=== PATIENT | female | born 1955 | race Caucasian/White ===

== ENCOUNTER → 2020-04-23 15:36 | Outpatient (BNVA) | payer OTHER, SELFPAY | PROVIDERS: PCP Internal Medicine; Visit Provider Student in an Organized Health Care Education/Training Program | DX: Z76.89 Persons encountering health services in other specified circumstances (principal) ==

== ENCOUNTER 2020-04-26 15:06 | Outpatient (REF) | payer OTHER, SELFPAY ==
[2020-04-26 15:30] LABS: Basophils Percent Auto 0.4 % (0-2); Eosinophils Absolute Auto 0.1 X10*3/uL (0.0-0.4); Eosinophils Percent Auto 1.6 % (0-4); Hematocrit 42.1 % (37-47); Hemoglobin 13.9 g/dl (12.0-16.0); Lymphocytes Absolute Auto 2.4 X10*3/uL (1.2-4.9); Lymphocytes Percent Auto 35.9 % (20-40); MANUAL DIFF FLAG NO; Mean Corpuscular Hemoglobin 29.7 pg (27.0-33.0); Mean Platelet Volume 9.4 fL (9.4-12.3); Monocytes Absolute Auto 0.5 X10*3/uL (0.1-1.2); Monocytes Percent Auto 7.9 % (2-11); Neutrophils Absolute Auto 3.6 X10*3/uL (2.0-8.3); Neutrophils Percent Auto 54.2 % (45-73); Platelet Count 254 X10*3/uL (160-400); Red Blood Count 4.68 X10*6/uL (4.20-5.50); Red Cell Distribution Width 12.8 % (11.0-16.0); White Blood Count 6.7 X10*3/uL (4.8-10.8)
[2020-04-26 15:56] LABS: Alanine Aminotransferase 23 U/L (0-31); Albumin Level 4.6 g/dL (3.5-5.0); Alkaline Phosphatase 67 U/L (39-117); Anion Gap 11 (12-20); Aspartate Amino Transferase 26 U/L (5-31); Bilirubin Total 0.6 mg/dL (0.0-1.0); Blood Urea Nitrogen 11 mg/dL (9-16); Calcium 9.3 mg/dL (8.4-10.2); Carbon Dioxide 29 mmol/L (22-29); Chloride 107 mmol/L (96-108); Estimated Glomerular Filt Rate > 60; Glucose Random 99 mg/dL (60-115); Potassium 3.8 mmol/l (3.3-5.1); Sodium 143 mmol/L (135-145); Total Protein 7.4 g/dL (6.5-8.0)
[2020-04-26 16:31] LABS: Erythrocyte Sedimentation Rate 7 MM/HR (0-20)
== END 2020-04-26 15:07 | disposition home or self-care (01) ==
LOC: HO.LAB 15:06
PROVIDERS: PCP Internal Medicine; Visit Provider Student in an Organized Health Care Education/Training Program
DX: M05.9 Rheumatoid arthritis with rheumatoid factor, unspecified (principal)
CPT/HCPCS: 36415; 80053; 85025; 85652; 86140

== ENCOUNTER → 2020-06-07 16:22 | Outpatient (BNVA) | payer OTHER, SELFPAY | PROVIDERS: PCP Internal Medicine; Visit Provider Student in an Organized Health Care Education/Training Program | DX: M05.9 Rheumatoid arthritis with rheumatoid factor, unspecified (principal); R76.8 Other specified abnormal immunological findings in serum | CPT/HCPCS: 99212 ==

== ENCOUNTER → 2020-09-10 14:14 | Outpatient (BNVA) | payer MEDICARE, SELFPAY | PROVIDERS: PCP Internal Medicine; Visit Provider Student in an Organized Health Care Education/Training Program | DX: M05.9 Rheumatoid arthritis with rheumatoid factor, unspecified (principal); R76.8 Other specified abnormal immunological findings in serum | CPT/HCPCS: 99212 ==

== ENCOUNTER 2020-09-24 10:52 | Outpatient (REF) | payer MEDICARE, SELFPAY ==
--- NOTE | ~2020-09-24 | CT_ITS ---
EXAMINATION: CT CHEST WITHOUT CONTRAST CLINICAL INFORMATION: Lung nodule COMPARISON: Previous chest CT scans January 2019 and June 2018 TECHNIQUE: Multidetector volumetric CT imaging of the chest was done. Axial MIP volume rendering provided. Sagittal and coronal reformatted images were obtained. This CT examination was performed using dose optimization techniques as appropriate, variously including the following: *Automated exposure control *Adjustment of mA and/or kV according to patient size (this includes techniques or standardized protocols for targeted exams where dose is matched to indication/reason for exam; i.e. extremities or head) *Use of iterative reconstruction technique DLP: 103 mGy-cm FINDINGS: CATTLE STICKER: LUNGS: There is an irregularly-shaped abnormal parenchymal density seen in the right upper lobe. This is mixed reticular and groundglass attenuation and has mild bronchiolectasis. This does not appear appreciably changed from previous exam June and January 2019. This measures 3.1 x 0.8 cm in sagittal and AP dimension sagittal reconstructed image 59 and 2.4 cm in transverse dimension coronal reconstructed image 36 and appears unchanged in size. There is mild biapical pleural and parenchymal scarring. The lungs are otherwise clear. MEDIASTINUM: The mediastinum is normal. PLEURA: There is no pleural effusion. No pleural mass or thickening. AXILLA: No lymphadenopathy. UPPER ABDOMEN: There is a 0.8 cm low-attenuation high in the right lobe of the liver axial image 53 series 3. This is not definitely appreciated on prior exams. OSSEOUS STRUCTURES: There are degenerative changes of the spine. There is mild curvature of the lower thoracic spine to the right. CT/CT chest wo con IMPRESSION: Stable abnormal parenchymal density in the right upper lobe from previous exams June and January 2019. Continued chest CT follow-up recommended. 8mm low-attenuation lesion in the right lobe of the liver not definitely appreciated on prior exams. Follow-up liver ultrasound recommended.
== END 2020-09-24 10:53 | disposition home or self-care (01) ==
LOC: HO.CT 10:52
PROVIDERS: PCP Internal Medicine; Visit Provider Internal Medicine
DX: R91.1 Solitary pulmonary nodule (principal)
CPT/HCPCS: 71250

== ENCOUNTER 2020-11-01 07:55 | Outpatient (REF) | payer MEDICARE, SELFPAY ==
--- NOTE | ~2020-11-01 | US_ITS ---
EXAMINATION: US ABDOMEN COMPLETE CLINICAL INFORMATION: Right upper quadrant pain. COMPARISON: CT abdomen and pelvis 11/15/2015. TECHNIQUE: Real-time imaging of the abdominal viscera. FINDINGS: PANCREAS: Normal. ABDOMINAL AORTA: The proximal, mid, and distal segments are normal in caliber. INFERIOR VENA CAVA: Visualized portions are normal. LIVER: The liver is normal in size. The liver contour is normal. Parenchymal echogenicity is normal. There is a 7 mm cyst in the right lobe the liver. No other focal liver lesion is seen. There is no intrahepatic biliary duct dilatation seen. GALLBLADDER: Normal. The gallbladder is physiologically distended without evidence of stones, sludge, polyps, wall thickening or pericholecystic fluid. COMMON BILE DUCT: Normal in caliber measuring 0.2 cm in diameter. RIGHT KIDNEY: Normal. No hydronephrosis. No renal calculi or focal parenchymal lesions. The kidney measures 9.2 cm in maximum dimension. LEFT KIDNEY: Normal. No hydronephrosis. No renal calculi or focal parenchymal lesions. The kidney measures 9.7 cm in maximum dimension. SPLEEN: Normal. The spleen measures 10.3 cm in maximum dimension. FREE FLUID: None. US/US abdomen complete IMPRESSION: Small liver cyst otherwise unremarkable exam.
== END 2020-11-01 07:56 | disposition home or self-care (01) ==
LOC: HO.US 07:55
PROVIDERS: Visit Provider Nurse Practitioner Adult Health
DX: R10.11 Right upper quadrant pain (principal)
CPT/HCPCS: 76700

== ENCOUNTER 2021-04-17 10:43 | Outpatient (REF) | payer MEDICARE, SELFPAY ==
[2021-04-17 11:56] LABS: COVID-19 Test Negative (Negative)
== END 2021-04-17 10:44 | disposition home or self-care (01) ==
LOC: HO.LAB 10:43
PROVIDERS: Visit Provider Internal Medicine
DX: Z20.822 Contact with and (suspected) exposure to COVID-19 (principal)
CPT/HCPCS: 36415; 87635; C9803

== ENCOUNTER → 2021-08-04 07:58 | Outpatient (BNVA) | payer MEDICARE, SELFPAY | PROVIDERS: PCP Internal Medicine; Visit Provider Internal Medicine Rheumatology | DX: M79.641 Pain in right hand (principal); M79.642 Pain in left hand; M19.041 Primary osteoarthritis, right hand; M19.042 Primary osteoarthritis, left hand; R76.8 Other specified abnormal immunological findings in serum | CPT/HCPCS: 99212 ==

== ENCOUNTER 2021-10-29 11:47 | Outpatient (REF) | payer MEDICARE, SELFPAY ==
--- NOTE | ~2021-10-29 | XR_ITS ---
EXAMINATION: XR KNEE, RIGHT XR KNEE, LEFT CLINICAL INFORMATION: Knee pain COMPARISON: Standing AP knees and right knee radiographs 11/03/2012. TECHNIQUE: Each knee is imaged in 4 views. There are total of 8 views. FINDINGS: Right: Normal bony mineralization. No fracture, dislocation, destructive process, or suprapatellar effusion. Hoffa's fat pad appears normal. The medial lateral knee joint appear normal in height with no narrowing or erosive change or chondrocalcinosis. There may be mild narrowing lateral patellofemoral joint. No lateralization or tilting patella. Left: Normal bony mineralization. No fracture, dislocation, destructive process, or suprapatellar effusion. Hoffa's fat pad appears normal. The medial lateral knee joint appear normal in height with no narrowing or erosive change or chondrocalcinosis. There is mild narrowing lateral patellofemoral joint. Mild lateral patellar tilt. XR/XR knee RT 3V IMPRESSION: Right: -Borderline narrowing lateral patellofemoral joint. -No medial lateral compartment narrowing or erosive change. No effusion. Left: -Mild narrowing lateral patellofemoral joint. Mild lateral patellar tilt. -No medial lateral compartment narrowing or erosive change. No effusion.
--- NOTE | ~2021-10-29 | XR_ITS ---
EXAMINATION: XR KNEE, RIGHT XR KNEE, LEFT CLINICAL INFORMATION: Knee pain COMPARISON: Standing AP knees and right knee radiographs 11/03/2012. TECHNIQUE: Each knee is imaged in 4 views. There are total of 8 views. FINDINGS: Right: Normal bony mineralization. No fracture, dislocation, destructive process, or suprapatellar effusion. Hoffa's fat pad appears normal. The medial lateral knee joint appear normal in height with no narrowing or erosive change or chondrocalcinosis. There may be mild narrowing lateral patellofemoral joint. No lateralization or tilting patella. Left: Normal bony mineralization. No fracture, dislocation, destructive process, or suprapatellar effusion. Hoffa's fat pad appears normal. The medial lateral knee joint appear normal in height with no narrowing or erosive change or chondrocalcinosis. There is mild narrowing lateral patellofemoral joint. Mild lateral patellar tilt. XR/XR knee LT 3V IMPRESSION: Right: -Borderline narrowing lateral patellofemoral joint. -No medial lateral compartment narrowing or erosive change. No effusion. Left: -Mild narrowing lateral patellofemoral joint. Mild lateral patellar tilt. -No medial lateral compartment narrowing or erosive change. No effusion.
[2021-10-29 13:44] LABS: C Reactive Protein 0.12 mg/dL (< or = 0.50)
[2021-10-29 13:48] LABS: Erythrocyte Sedimentation Rate 6 MM/HR (0-20)
== END 2021-10-29 11:48 | disposition home or self-care (01) ==
LOC: HO.XRAY 11:47
PROVIDERS: PCP Internal Medicine; Visit Provider Internal Medicine Rheumatology
DX: M25.561 Pain in right knee (principal); M25.562 Pain in left knee; R29.898 Other symptoms and signs involving the musculoskeletal system
CPT/HCPCS: 36415; 73562; 82550; 85652; 86140; 99212

== ENCOUNTER 2021-11-06 20:00 | Emergency (ER) | payer MEDICARE, SELFPAY ==
--- NOTE | ~2021-11-06 | XR_ITS ---
EXAMINATION: XR CHEST CLINICAL INFORMATION: Fever. COMPARISON: CT chest 09/24/2020 TECHNIQUE: Frontal portable view of the chest was obtained. 8:46 PM FINDINGS: Small patchy airspace opacity at the right upper lobe. This correlates to the previously seen density on CT chest 09/24/2020. No acute airspace disease. No pulmonary vascular congestion. No pleural effusion or pneumothorax. Heart size is normal. Cardiac and mediastinal contours are normal. XR/XR chest 1V IMPRESSION: No acute abnormality of chest. Stable patchy parenchymal airspace opacity right upper lobe which is chronic. See the prior report CT chest
[2021-11-06 20:13] VITALS: BP 140/67; BP 150/80; PULSE 116; PULSE 145; RESP 16; TEMP 38.2; O2SAT 96; O2SAT 98; BMI 23.0
--- NOTE | 2021-11-06 20:45 | ED_ITS ---
HPI - Fever General Chief Complaint: Fever Stated Complaint: flu like symptoms Time Seen by Provider: 11/06/21 20:18 Source: patient Mode of arrival: EMS Limitations: no limitations History of Present Illness HPI Narrative: This is 66 years old female presented to emergency department c/o of flu-like symptoms, fever, chills, diarrhea. Symptoms started today she was well yesterday. She has no comorbidities he MD elicited complaint: fever and malaise Onset (ago): hour(s) (10) Exacerbating factors: nothing Relieving factors: nothing Associated symptoms: denies other symptoms Related Data Home Medications Medication Instructions Recorded Confirmed rzwagvdivo-korqjzblfzpqt-hzvzwksp 1 cap PO Q8H PRN 04/23/20 10/29/21 50 mg-300 mg-40 mg capsule (Fioricet) cholecalciferol (vitamin D3) 25 25 mcg PO DAILY 06/07/20 10/29/21 mcg (1,000 unit) capsule lorazepam 0.5 mg tablet 0.5 mg PO BEDTIME PRN 06/07/20 10/29/21 acetaminophen 650 mg 650 mg PO Q12H PRN 08/04/21 10/29/21 tablet,extended release (Tylenol Arthritis Pain) Allergies Allergy/AdvReac Type Severity Reaction Status Date / Time amoxicillin Allergy Intermediate rash Verified 10/29/21 11:04 latex Allergy Intermediate rash Uncoded 10/29/21 11:04 Review of Systems Review of Systems: Yes all other systems are reviewed and are negative Cardiovascular: Cardiovascular: Reports no additional cardiovascular complaints Respiratory: Respiratory: Reports no additional respiratory complaints Gastrointestinal: Gastrointestinal: Reports no additional gastrointestinal complaints Neurologic: Reports system reviewed and no additional complaints, except as documented PMFSH Past Medical History Medical History SANDIE positive Compression fx, thoracic spine Osteoarthritis of fingers of both hands Osteopenia Seropositive rheumatoid arthritis Surgical History Hx of tonsillectomy Family History Family History Mother HTN (hypertension) Hyperlipidemia Diabetes Arthritis Social History Social History Alcohol intake: never Patient Tobacco Use Status: Never used Tobacco Advance Directives: No Advance Directives Information Provided: No Physical Exam Vital Signs: Vital Signs: Last Vital Signs Temp 99.5 F 11/06/21 21:39 Pulse 90 11/06/21 22:04 Resp 16 11/06/21 22:04 BP 145/77 H 11/06/21 22:04 Pulse Ox 97 11/06/21 22:04 O2 Del Method 11/06/21 22:04 BMI result Body Mass Index 23.0 Const: General: cooperative, comfortable, no acute distress, well developed, alert and awake Nutritional Appearance: average body habitus O rientation/consciousness: patient oriented x3 Limitations: no limitations HEENT: Head: Yes normal to inspection General nose exam: Normal external nose present Face and sinus: Yes normal facial exam Mouth: Normal oral and palatal mucosa present Throat: Yes posterior oropharynx normal Neck: Neck: Yes normal visual inspection and Yes full ROM Chest: Chest palpation & inspection: normal inspection of the chest Resp: Effort & Inspection: normal respiratory effort and able to speak in complete sentences Auscultation: clear to auscultation bilaterally Cardio: Jugular venous distension: no JVD Rate: regular rate Rhythm: regular rhythm GI: Inspection: Yes normal to inspection Palpation (GI): Soft to palpation, not firm, nontender and no guarding Auscultation: normal bowel sounds : General: Yes no CVA tenderness Back/Spine/Pelvis: Back: no CVA tenderness Skin: General skin exam: no rashes or lesions noted, elasticity normal and turgor normal Lesions: no lesions Wounds: no wounds Neuro: General: patient oriented x3 Course Reevaluation(s) Reevaluation #1: Gopal is feeling much better,afebrile at this time non toxic Reevaluation #2: Reexamined again at 23:15 and she is doing much better labs are good, vital signs are stable. MDM - Fever Lab Data Result diagrams: 11/06/21 21:18 11/06/21 21:18 Labs: Lab Results 11/06/21 11/06/21 11/06/21 Range/Units 21:16 21:16 21:18 WBC 4.7 L (4.8-10.8) X10*3/uL RBC 4.38 (4.20-5.50) X10*6/uL Hgb 12.7 (12.0-16.0) g/dl Hct 38.5 (37.0-47.0) % MCV 87.9 (80.0-98.0) fL MCH 29.0 (27.0-33.0) pg MCHC 33.0 (31.0-35.0) g/dl RDW 12.9 (11.0-16.0) % Plt Count 208 (160-400) X10*3/uL MPV 8.8 L (9.4-12.3) fL Immature Gran % (Auto) 0.4 (0.0-0.4) % Neut % (Auto) 73.5 H (45-73) % Lymph % (Auto) 13.8 L (20-40) % [place] % (Auto) 11.0 (2-11) % Eos % (Auto) 1.1 (0-4) % Baso % (Auto) 0.2 (0-2) % Lymph # (Auto) 0.6 L (1.2-4.9) X10*3/uL [place] # (Auto) 0.5 (0.1-1.2) X10*3/uL Eos # (Auto) 0.1 (0.0-0.4) X10*3/uL Baso # (Auto) 0.0 (0.0-0.2) X10*3/uL Abs Immat Gran (auto) 0.02 (0.00-0.03) X10*3/uL Absolute Neuts (auto) 3.4 (2.0-8.3) x10*3/uL Absolute Nucleated RBC 0.000 (0.0-0.012) X10*3/uL Nucleated RBC % (auto) 0.0 (0.0-0.2) /100WBC Sodium (135-145) mmol/L Potassium (3.3-5.1) mmol/L Chloride (96-108) mmol/L Carbon Dioxide (22-29) mmol/L Anion Gap (12-20) BUN (9-16) mg/dL Creatinine (0.5-1.4) mg/dL Estim Creat Clear Calc Estimated GFR Random Glucose (60-115) mg/dL Calcium (8.4-10.2) mg/dL Total Bilirubin (0.0-1.0) mg/dL AST (5-31) U/L ALT (0-31) U/L Alkaline Phosphatase (39-117) U/L Total Protein (6.5-8.0) g/dL Albumin (3.5-5.0) g/dL Urine Color STRAW Urine Appearance CLEAR Urine pH 6.0 (5.0-8.0) Ur Specific [place] <= 1.005 (1.005-1.025) Urine Protein NEG (NEG-TRACE) MG/DL Urine Glucose (UA) NEG (NEG) MG/DL Urine Ketones NEG (NEG) MG/DL Urine Blood 1+ H (NEG) Urine Nitrite NEG (NEG) Ur Leukocyte Esterase NEG (NEG) Urine RBC 1-4 (0) /HPF Urine WBC 0-2 (0-4) /HPF Ur Squamous Epith Cells TRACE /LPF Urine Bacteria NONE /LPF COVID-19 (NAHID) Negative (Negative) COVID-19 Clin Com See Note 11/06/21 Range/Units 21:18 WBC (4.8-10.8) X10*3/uL RBC (4.20-5.50) X10*6/uL Hgb (12.0-16.0) g/dl Hct (37.0-47.0) % MCV (80.0-98.0) fL MCH (27.0-33.0) pg MCHC (31.0-35.0) g/dl RDW (11.0-16.0) % Plt Count (160-400) X10*3/uL MPV (9.4-12.3) fL Immature Gran % (Auto) (0.0-0.4) % Neut % (Auto) (45-73) % Lymph % (Auto) (20-40) % [place] % (Auto) (2-11) % Eos % (Auto) (0-4) % Baso % (Auto) (0-2) % Lymph # (Auto) (1.2-4.9) X10*3/uL [place] # (Auto) (0.1-1.2) X10*3/uL Eos # (Auto) (0.0-0.4) X10*3/uL Baso # (Auto) (0.0-0.2) X10*3/uL Abs Immat Gran (auto) (0.00-0.03) X10*3/uL Absolute Neuts (auto) (2.0-8.3) x10*3/uL Absolute Nucleated RBC (0.0-0.012) X10*3/uL Nucleated RBC % (auto) (0.0-0.2) /100WBC Sodium 140 (135-145) mmol/L Potassium 3.6 (3.3-5.1) mmol/L Chloride 108 (96-108) mmol/L Carbon Dioxide 25 (22-29) mmol/L Anion Gap 11 L (12-20) BUN 12 (9-16) mg/dL Creatinine 0.77 (0.5-1.4) mg/dL Estim Creat Clear Calc 59.4 Estimated GFR > 60 Random Glucose 81 (60-115) mg/dL Calcium 8.4 D (8.4-10.2) mg/dL Total Bilirubin 0.5 (0.0-1.0) mg/dL AST 22 (5-31) U/L ALT 21 (0-31) U/L Alkaline Phosphatase 63 (39-117) U/L Total Protein 6.8 (6.5-8.0) g/dL Albumin 4.2 (3.5-5.0) g/dL Urine Color Urine Appearance Urine pH (5.0-8.0) Ur Specific [place] (1.005-1.025) Urine Protein (NEG-TRACE) MG/DL Urine Glucose (UA) (NEG) MG/DL Urine Ketones (NEG) MG/DL Urine Blood (NEG) Urine Nitrite (NEG) Ur Leukocyte Esterase (NEG) Urine RBC (0) /HPF Urine WBC (0-4) /HPF Ur Squamous Epith Cells /LPF Urine Bacteria /LPF COVID-19 (NAHID) (Negative) COVID-19 Clin Com Imaging Data Chest x-ray: Radiologist's impression: XR CHEST CLINICAL INFORMATION: Fever. COMPARISON: CT chest 09/24/2020 TECHNIQUE: Frontal portable view of the chest was obtained. 8:46 PM FINDINGS: Small patchy airspace opacity at the right upper lobe. This correlates to the previously seen density on CT chest 09/24/2020. No acute airspace disease. No pulmonary vascular congestion. No pleural effusion or pneumothorax. Heart size is normal. Cardiac and mediastinal contours are normal. XR/XR chest 1V IMPRESSION: No acute abnormality of chest. Stable patchy parenchymal airspace opacity right upper lobe which is chronic. See the prior report CT chest ? Dictated By: Ti Nguyen MD Signed By: <Electronically signed by Ti Nguyen MD in [place]> 11/06/212116 DD/ 52 Discharge Plan Discharge Clinical Impression: Fever, Viral illness Patient Disposition: Home, Self-Care Instructions: Fever in Adults (ED) Prescriptions: No Action ttakfyqjyx-odrvgpymqfltd-tnru [Fioricet] 50-300-40 mg capsule 1 cap PO Q8H PRN acetaminophen [Tylenol Arthritis Pain] 650 mg tablet extended release 650 mg PO Q12H PRN lorazepam 0.5 mg tablet 0.5 mg PO BEDTIME PRN cholecalciferol (vitamin D3) 25 mcg (1,000 unit) capsule 25 mcg PO DAILY Interventions: ED Discharge Assessment Last Done: 11/06/21 23:39 Discharge Date/Time: 11/06/21 23:39
[2021-11-06] MEDS: Ketorolac Tromethamine 15 MG/ML VIAL IVPUSH (21:15)
[2021-11-06] MEDS: 0.9 % Sodium Chloride 1,000 ML 999 ML IV (21:16)
[2021-11-06 21:24] LABS: MANUAL DIFF FLAG NO
[2021-11-06 21:26] LABS: Appearance Urine CLEAR; Color Urine STRAW; Glucose Urine UA NEG (NEG); Leukocyte Esterase Urine NEG (NEG); Nitrite Urine NEG (NEG); Specific Gravity - Urine <= 1.005 (1.005-1.025); UACC Culture Trigger NO; Urine Blood 1+ (NEG); Urine Ketones NEG (NEG); Urine Protein NEG (NEG-TRACE)
[2021-11-06 21:29] LABS: Basophils Percent Auto 0.2 % (0-2); Eosinophils Absolute Auto 0.1 X10*3/uL (0.0-0.4); Eosinophils Percent Auto 1.1 % (0-4); Hematocrit 38.5 % (37.0-47.0); Hemoglobin 12.7 g/dl (12.0-16.0); Imm Gran Abs Auto 0.02 X10*3/uL (0.00-0.03); Imm Gran Pct Auto 0.4 % (0.0-0.4); Lymphocytes Absolute Auto 0.6 X10*3/uL (1.2-4.9); Lymphocytes Percent Auto 13.8 % (20-40); Mean Corpuscular Volume 87.9 fL (80.0-98.0); Mean Platelet Volume 8.8 fL (9.4-12.3); Monocytes Absolute Auto 0.5 X10*3/uL (0.1-1.2); Neutrophils Absolute Auto 3.4 x10*3/uL (2.0-8.3); Neutrophils Percent Auto 73.5 % (45-73); Platelet Count 208 X10*3/uL (160-400); Red Blood Count 4.38 X10*6/uL (4.20-5.50); Red Cell Distribution Width 12.9 % (11.0-16.0); White Blood Count 4.7 X10*3/uL (4.8-10.8)
[2021-11-06 21:35] LABS: Squamous Epithelial Cell Urine TRACE /LPF; WBC Urine 0-2 /HPF (0-4)
[2021-11-06 21:39] VITALS: BP 146/86; PULSE 97; RESP 18; TEMP 37.5; O2SAT 96
[2021-11-06 21:40] LABS: COVID-19 Test Negative (Negative)
[2021-11-06 21:42] LABS: Alanine Aminotransferase 21 U/L (0-31); Albumin Level 4.2 g/dL (3.5-5.0); Alkaline Phosphatase 63 U/L (39-117); Anion Gap 11 (12-20); Aspartate Amino Transferase 22 U/L (5-31); Bilirubin Total 0.5 mg/dL (0.0-1.0); Blood Urea Nitrogen 12 mg/dL (9-16); Calcium 8.4 mg/dL (8.4-10.2); Carbon Dioxide 25 mmol/L (22-29); Chloride 108 mmol/L (96-108); Creatinine Clr Calc Pharmacy 59.4; Estimated Glomerular Filt Rate > 60; Glucose Random 81 mg/dL (60-115); Potassium 3.6 mmol/L (3.3-5.1); Sodium 140 mmol/L (135-145); Total Protein 6.8 g/dL (6.5-8.0)
[2021-11-06 22:04] VITALS: BP 145/77; PULSE 90; RESP 16; O2SAT 97
== END 2021-11-06 23:39 | disposition home or self-care (01) ==
PROVIDERS: Emergency Provider Emergency Medicine; PCP Internal Medicine
DX: B34.9 Viral infection, unspecified (principal); Z20.822 Contact with and (suspected) exposure to COVID-19; R50.9 Fever, unspecified; I10 Essential (primary) hypertension; E11.9 Type 2 diabetes mellitus without complications; E78.5 Hyperlipidemia, unspecified
CPT/HCPCS: 36415; 71045; 80053; 81001; 85025; 87040; 87635; 96361; 96374; 99284; J1885

== ENCOUNTER 2021-12-29 12:37 | Outpatient (REF) | payer MEDICARE, SELFPAY ==
--- NOTE | ~2021-12-29 | CT_ITS ---
EXAMINATION: CT CHEST WITHOUT CONTRAST CLINICAL INFORMATION: Solitary pulmonary nodule. COMPARISON: CT chest 09/24/2020. TECHNIQUE: Multidetector volumetric CT imaging of the chest was done. Axial MIP volume rendering provided. Sagittal and coronal reformatted images were obtained. This CT examination was performed using dose optimization techniques as appropriate, variously including the following: *Automated exposure control *Adjustment of mA and/or kV according to patient size (this includes techniques or standardized protocols for targeted exams where dose is matched to indication/reason for exam; i.e. extremities or head) *Use of iterative reconstruction technique DLP: 106 mGy-cm FINDINGS: HAND CARVER: Well-expanded lungs. LUNGS: Again visualized is irregular-shaped abnormal parenchymal density right lung apex measuring approximately 3 cm x 0.8 cm in dimension on axial image /. No additional pulmonary nodule, mass or consolidation seen. MEDIASTINUM: The thyroid lobes are symmetrical and normal. The central trachea and the bronchi are widely patent. The heart size and the great vessels are normal caliber. No abnormal-size mediastinal or hilar lymph nodes seen. No pericardial effusion seen. PLEURA: There is no pleural effusion. No pleural mass or thickening. AXILLA: No abnormal axillary lymphadenopathy seen. There is a 6 mm calcification in left breast. UPPER ABDOMEN: There are 9 mm left hepatic lobe and 1.3 cm right hepatic lobe hypodense lesions, probable cysts. There is no intrahepatic ductal dilatation seen. OSSEOUS STRUCTURES: Mild degenerative disc changes and ventral spondylosis mid dorsal spine. No aggressive lytic or sclerotic process seen. CT/CT chest wo con IMPRESSION: Stable right apical irregular-shaped parenchymal density measuring 3 cm. Comparison is done to previous CT chest 09/24/2020 and June 2018. Fleischner guidelines were followed.
== END 2021-12-29 12:38 | disposition home or self-care (01) ==
LOC: HO.CT 12:37
PROVIDERS: PCP Internal Medicine; Visit Provider Nurse Practitioner Adult Health
DX: R91.1 Solitary pulmonary nodule (principal)
CPT/HCPCS: 71250

== ENCOUNTER 2022-03-20 07:17 | Day surgery (SDC) | payer MEDICARE, SELFPAY ==
--- NOTE | 2022-03-19 10:57 | HO.ANESPROP2 ---
Documented by User: Monica Mukherjee NP 03/19/22 10:58 HPI - Anesthesia Eval Consult details Narrative: 66yo F for Colonoscopy PMFSH Active Problems Active Problems: All Active Problems (Updated 11/07/21 @ 00:00 by Background Daemon) Bilateral leg weakness (Acute) Knee pain, bilateral (Acute) Osteopenia (Acute) Osteoarthritis of fingers of both hands (Acute) SANDIE positive (Acute) Past Medical History Medical History SANDIE positive Compression fx, thoracic spine IBS (irritable bowel syndrome) Migraines Osteoarthritis of fingers of both hands Osteopenia Seropositive rheumatoid arthritis Family History Family History Mother HTN (hypertension) Hyperlipidemia Diabetes Arthritis Surgical History Surgical History Hx of colonoscopy Hx of tonsillectomy Social History Social History Alcohol intake: never Patient Tobacco Use Status: Never used Tobacco Are you DNR?: No Advance Directives: No Advance Directives Information Provided: Yes Nutrition Risks: No Nutritional Risk Meds Allergies Allergy/AdvReac Type Severity Reaction Status Date / Time amoxicillin Allergy Intermediate rash Verified 03/20/22 07:46 latex Allergy Intermediate rash Uncoded 03/20/22 07:46 Home Medications Medication Instructions Recorded Confirmed Last Taken Type cavhhblszn-tpnwusajqxkwn-avzpkhxm 1 cap PO Q8H PRN 04/23/20 10/29/21 Unknown History 50 mg-300 mg-40 mg capsule (Fioricet) cholecalciferol (vitamin D3) 25 25 mcg PO DAILY 06/07/20 10/29/21 Unknown History mcg (1,000 unit) capsule lorazepam 0.5 mg tablet 0.5 mg PO BEDTIME PRN 06/07/20 10/29/21 Unknown History acetaminophen 650 mg 650 mg PO Q12H PRN 08/04/21 10/29/21 Unknown History tablet,extended release (Tylenol Arthritis Pain) Exam Exam Date and Time: March 19, 2022 1057 Pertinent Lab Results Pertinent Lab Results: Laboratory Tests 11/06/21 11/06/21 21:18 21:18 WBC 4.7 L Hgb 12.7 Hct 38.5 Plt Count 208 Sodium 140 Potassium 3.6 Chloride 108 Carbon Dioxide 25 BUN 12 Creatinine 0.77 Assessment and Plan Assessment Anesthesia Assessment: Chart Reviewed Documented by User: Davian Ray MD 03/20/22 08:52 [facility] Past Medical History Medical History SANDIE positive Compression fx, thoracic spine IBS (irritable bowel syndrome) Migraines Osteoarthritis of fingers of both hands Osteopenia Seropositive rheumatoid arthritis Family History Family History Mother HTN (hypertension) Hyperlipidemia Diabetes Arthritis Family history of problems with anesthesia: No Surgical History Surgical History Hx of colonoscopy Hx of tonsillectomy History of Problems with Anesthesia: No Social History Social History Alcohol intake: never Patient Tobacco Use Status: Never used Tobacco Are you DNR?: No Advance Directives: No Advance Directives Information Provided: Yes Nutrition Risks: No Nutritional Risk Meds Allergies Allergy/AdvReac Type Severity Reaction Status Date / Time amoxicillin Allergy Intermediate rash Verified 03/20/22 07:46 latex Allergy Intermediate rash Uncoded 03/20/22 07:46 Home Medications Medication Instructions Recorded Confirmed Last Taken Type ojpppzuidv-xycbpppqcuahy-fkxshngs 1 cap PO Q8H PRN 04/23/20 10/29/21 Unknown History 50 mg-300 mg-40 mg capsule (Fioricet) cholecalciferol (vitamin D3) 25 25 mcg PO DAILY 06/07/20 10/29/21 Unknown History mcg (1,000 unit) capsule lorazepam 0.5 mg tablet 0.5 mg PO BEDTIME PRN 06/07/20 10/29/21 Unknown History acetaminophen 650 mg 650 mg PO Q12H PRN 08/04/21 10/29/21 Unknown History tablet,extended release (Tylenol Arthritis Pain) Exam Airway Mallampati Class: II TM Dist: >3cm Neck ROM: Full Loose/Missing/Broken Teeth: No Heart: [id number] Lungs: cta b/l Assessment and Plan Assessment Anesthesia Assessment: Anesthesia Plan Discussed Final Anesthetic Review Family History of Problems with Anesthesia: No History of Problems with Anesthesia: No NPO: Yes ASA Class: II Final Preanesthetic Review: No Changes in Pt Med Stat, Meds/Allgs Chart Reviewed, Consent Obtained/Reviewed and Anes Risks/Benef Reviewed Patient Risk: Intermediate Procedure Risk: Intermediate Assessment/Block/Sedation in SS: Assess/Block/Sedation-SS Anesthetic Plan Anesthetic Plan: MAC: and Agree w/ Assess. and Plan Disposition: Standard PACU
[2022-03-20 07:44] VITALS: BMI 21.7
[2022-03-20 07:59] VITALS: BP 140/91; PULSE 98; RESP 18; TEMP 36.7; O2SAT 99
[2022-03-20] MEDS: Lactated Ringers 1,000 ML 100 ML IVCONT (08:00)
[2022-03-20 09:26] VITALS: BP 102/60; PULSE 71; RESP 16; TEMP 36.1; O2SAT 98
--- NOTE | 2022-03-20 09:28 | PM.OP ---
Brief Operative Note Date of Service: 03/20/22 Pre-op diagnosis: Screening Post-op diagnosis: other (Diverticulosis) Procedure: Colonoscopy to the cecum and TI Surgeon: Arcenio Gaspar Anesthesia: MAC Was an Supervisor Throwing Department used for this Procedure?: No Estimated blood loss (mL): 0 Pathology: none sent Condition: stable Disposition: PACU
[2022-03-20 09:41] VITALS: BP 108/62; PULSE 70; RESP 18; O2SAT 99
[2022-03-20 09:56] VITALS: BP 134/62; PULSE 67; RESP 18; O2SAT 99
[2022-03-20 10:10] VITALS: TEMP 36.2
--- NOTE | 2022-03-20 13:09 | OP_ITS ---
SURGEON: Arcenio Gaspar MD INDICATIONS: The patient presents for evaluation of colorectal cancer screening and personal history of tubular adenoma of the colon. Full consent has been obtained from her for this, including risks of bleeding and perforation. PREOPERATIVE DIAGNOSIS: Colorectal cancer screening and personal history of tubular adenoma of the colon. POSTOPERATIVE DIAGNOSIS: PROCEDURE PERFORMED: Colonoscopy to the cecum and terminal ileum. ESTIMATED BLOOD LOSS: COMPLICATIONS: ANESTHESIA: Monitored anesthesia care. ASSISTANTS: SPECIMENS: POSTOPERATIVE DIAGNOSES: Colorectal cancer screening and personal history of tubular adenoma of the colon, diverticulosis and internal hemorrhoids. DESCRIPTION OF PROCEDURE: The patient was placed in the left lateral decubitus position. The digital rectal exam revealed no abnormalities. The Olympus video pediatric colonoscope was entered into the rectum and advanced easily to the cecum. Once in the cecum, I did identify a normal-appearing cecal pouch with appendiceal orifice and a normal-appearing ileocecal valve. The terminal ileum was cannulated and appeared normal. The scope was withdrawn back in the colon. The entire cecum and ileocecal valve appeared normal. The scope was slowly withdrawn assessing all mucosal surfaces carefully. Preparation was excellent. I did not visualize any sign of polyps, colitis, nor angiodysplasia. There was a mild amount of sigmoid diverticulosis. In the rectum, scope was retroflexed visualizing internal hemorrhoids, but no other pathology. The rectal mucosa appeared normal. The scope was straightened and withdrawn from the patient. She tolerated the procedure well and was returned to the recovery area in stable condition. IMPRESSION: 1. Mild diverticulosis. 2. Internal hemorrhoids. PLAN: Given her previous history, I would recommend a followup colonoscopy in 5 years for further screening purposes. She will otherwise see me on a p.r.n. basis. MD JOSE Montes/KIKO / [id number]
== END 2022-03-20 10:24 | disposition home or self-care (01) ==
PROVIDERS: PCP Internal Medicine; Visit Provider Internal Medicine
PROC: 0DJD8ZZ Inspection of Lower Intestinal Tract, Via Natural or Artificial Opening Endoscopic (ICD-10-PCS; CPT 45378; principal; 2022-03-20 08:30)
DX: Z12.11 Encounter for screening for malignant neoplasm of colon (principal); Z86.010 Personal history of colon polyps; K57.30 Diverticulosis of large intestine without perforation or abscess without bleeding; K64.8 Other hemorrhoids; K58.9 Irritable bowel syndrome, unspecified; G43.909 Migraine, unspecified, not intractable, without status migrainosus; Z88.1 Allergy status to other antibiotic agents; Z79.899 Other long term (current) drug therapy
CPT/HCPCS: G0105

== ENCOUNTER 2022-07-30 07:51 | Outpatient (REF) | payer MEDICARE, SELFPAY ==
--- NOTE | ~2022-07-30 | MM_ITS ---
EXAMINATION: MM DIAGNOSTIC DIGITAL MAMMOGRAPHY, LEFT US ULTRASOUND BREAST, LEFT CLINICAL INFORMATION: Recall from outside screening for new grouped calcifications with associated subtle spiculated asymmetry/distortion upper left breast. COMPARISON: Mammography: 07/09/2022 ([facility]), 01/02/2020, 06/16/2018, 05/28/2017 TECHNIQUE: Digital mammography is performed in the following views: Magnification CC x2, magnification ML. Ultrasound left breast is targeted to the upper breast and additional imaging left axilla also included. Grayscale imaging and color Doppler are performed without and with harmonics. FINDINGS: There are scattered areas of fibroglandular density (ACR BI-RADS breast composition Category b). The additional views show numerous grouped predominantly large oval and round calcifications with some other smaller pleomorphic types mid 11:00 position encompassing an area of approximately 2.3 cm in length. There there are some subtle radiating lines around the periphery of this area. Ultrasound left breast demonstrates focal strong shadowing mid upper breast approximately 9 cm from nipple believed to correspond to the mammographic finding. Ultrasound left axilla demonstrates no adenopathy. Results are discussed with the patient at time of visit. MM/MM tomosynthesis added views L IMPRESSION: -Grouped abnormal calcifications with some subtle surrounding radiating lines mid upper left breast. -Ultrasound correlate with posterior shadowing. ASSESSMENT: BI-RADS 4: Suspicious (subcategory 4C: High suspicion for malignancy) RECOMMENDATION: Ultrasound-guided biopsy left breast. This patient's information was entered into a reminder system with a target due date for their next mammogram.
== END 2022-07-30 07:52 | disposition home or self-care (01) ==
LOC: HO.MAMMO 07:51
PROVIDERS: Visit Provider Internal Medicine
DX: N64.4 Mastodynia (principal)
CPT/HCPCS: 76642; 77061; 77065

== ENCOUNTER 2022-07-31 09:21 | Outpatient (REF) | payer MEDICARE, MEDICAID, SELFPAY ==
--- NOTE | ~2022-07-31 | MM_ITS ---
PROCEDURE: US GUIDED BREAST BIOPSY, LEFT CLINICAL INFORMATION: Left breast hypoechoic lesion with calcifications and irregular margins with distal sound shadowing 10:00 position of the left breast. COMPARISON: July 30, 2022 and studies dating back to May 28, 2017. PROCEDURAL DETAILS: The details of the procedure, as well as the risks, benefits, and alternatives to the procedure were explained to the patient in detail and all of her questions were answered, after which written informed consent was obtained. Site and side were confirmed. Prior to the procedure, sonography revealed a hypoechoic lesion with distal sound shadowing. A time-out was performed, the lesion intended for biopsy was targeted, and the skin of the left breast was then prepped and draped in the usual sterile fashion. Using sonographic guidance, sterile technique, and 1% lidocaine without epinephrine for local anesthesia, multiple automated core biopsies were obtained through the targeted area with a 14G spring loaded Achieve core biopsy device. There was real-time confirmation of appropriate needle passage. Sampling was documented. At the completion of tissue sampling, a single open coil-shaped metallic clip was deposited at the biopsy site. There was no evidence of immediate complication. SPECIMEN: An appropriate sample was obtained. DIGITAL POST-PROCEDURE MAMMOGRAPHY: Breast density: The tissue is heterogeneously dense which may obscure small masses. BI-RADS version 5, category C. There are no new mammographic findings demonstrated. The postprocedure 2-view direct digital mammogram reveals satisfactory positioning of the biopsy clip. The patient tolerated the procedure well and, after assuring adequate hemostasis, was discharged in good condition after reviewing postbiopsy breast care instructions. Final pathology results are pending. MM/MM tomosynthesis diagnostic LT IMPRESSION: 1. No immediate complication from ultrasound-guided percutaneous biopsy left breast. 2. Ultrasound was used to localize and guide marker clip placement. 3. The 2-view direct digital postprocedure mammogram reveals satisfactory positioning of the biopsy clip. 4. Final pathology results are pending. A separate report with final recommendations will be issued once these results are made available.
[2022-07-31] MEDS: Lidocaine HCl 1 % 20 ML VIAL 9 ML SUBCUT (10:44)
[2022-07-31] MEDS: Sodium Bicarbonate 8.4% 50 MEQ/50 ML VIAL SUBCUT (10:47)
== END 2022-07-31 09:22 | disposition home or self-care (01) ==
LOC: HO.MAMMO 09:21
PROVIDERS: Visit Provider Surgery
DX: R92.0 Mammographic microcalcification found on diagnostic imaging of breast (principal)
CPT/HCPCS: 19083; 77061; 77065; 88305; 88360; 99202; 99212; A4648

== ENCOUNTER → 2022-08-06 08:44 | Outpatient (BNVA) | payer MEDICARE, MEDICAID, SELFPAY | PROVIDERS: PCP Internal Medicine; Referring Provider Internal Medicine; Visit Provider Surgery | DX: R92.0 Mammographic microcalcification found on diagnostic imaging of breast (principal) | CPT/HCPCS: 99212 ==

== ENCOUNTER → 2022-08-12 09:33 | Outpatient (BNV) | payer MEDICARE, MEDICAID, SELFPAY | PROVIDERS: PCP Internal Medicine; Visit Provider Internal Medicine Medical Oncology | DX: C50.412 Malignant neoplasm of upper-outer quadrant of left female breast (principal) | CPT/HCPCS: 99204; 99213; 99214; 99443 ==

== ENCOUNTER 2022-08-14 12:00 | Outpatient (REF) | payer MEDICARE, MEDICAID, SELFPAY ==
--- NOTE | ~2022-08-14 | MR_ITS ---
EXAMINATION: MR BREAST WITHOUT AND WITH CONTRAST, BILATERAL CLINICAL INFORMATION: New diagnosis of left breast cancer. COMPARISON: Mammograms and ultrasound of 07/09/2022, 07/30/2022 and 07/31/2022. TECHNIQUE: Imaging was performed with a dedicated breast coil. Prior to the administration of contrast, bilateral axial T1 and bilateral axial T2 weighted sequences were obtained. After the uneventful administration of?6 mL of Gadavist, dynamic contrast-enhanced VIBRANT series through the breasts in the axial plane were performed. Subtracted images were performed and reviewed. A delayed sagittal sequence through both breasts was acquired. Additionally, CAD post-processing, including maximum intensity projections, 3-D reconstructions and kinetic analysis, were performed an independent workstation and reviewed by the interpreting radiologist is a portion of this exam. FINDINGS: The patient's fibroglandular tissue demonstrates minimal background enhancement. LEFT BREAST: There is an irregular enhancing mass at 10 o'clock, 4.8 cm from the nipple, measuring 1.6 craniocaudad dimension by 2.6 AP dimension by 1.9 transverse dimension. There is a susceptibility artifact within this mass. This corresponds to the incident tumor. There is a prominent feeding vessel. This can be seen on MR sequence #100 image 39/108. There are multiple pleomorphic and coarse heterogeneous calcifications on the mammogram within this mass. (MR sequence 100, image 38/108). There is an oval rim-enhancing T2 bright mass just lateral to the known tumor consistent with a postbiopsy hematoma. This measures 1.2 x 2 cm. There are no other areas of mass or non-mass enhancement suspicious of malignancy within the breast. There are no additional findings on T2-weighted imaging or kinetic curve analysis. RIGHT BREAST: No suspicious masslike or non-masslike enhancement. No abnormal skin thickening or nipple retraction. No abnormal architectural distortion. Review of the T2 weighted images demonstrates no fibrocystic changes or dilated ducts. Review of kinetic images reveals no additional findings. There is no suspicious internal mammary chain or axillary adenopathy. Limited views of the chest and abdomen are unremarkable. MR/MR breast BI wo/w con IMPRESSION: 1. Irregularly-shaped enhancing mass left breast 10 o'clock, 4.8 cm from the nipple, measuring 1.6 x 2.6 x 1.9 cm, corresponding to the incident tumor. This contains pleomorphic and dystrophic calcifications. 2. Large postbiopsy hematoma medial to the incident tumor. 3. No other suspicious findings in the left breast or the right breast. ASSESSMENT: LEFT BREAST: BI-RADS 6 - Known malignancy. RIGHT BREAST: BI-RADS 1 - Negative. RECOMMENDATIONS: Surgical and oncologic treatment for the known malignancy in the left breast.
== END 2022-08-14 12:01 | disposition home or self-care (01) ==
LOC: HO.MRI 12:00
PROVIDERS: PCP Internal Medicine; Visit Provider Surgery
DX: R92.0 Mammographic microcalcification found on diagnostic imaging of breast (principal)
CPT/HCPCS: 77049; A9585

== ENCOUNTER → 2022-08-27 08:50 | Outpatient (REF) | payer MEDICARE, MEDICAID, SELFPAY ==
--- NOTE | 2022-08-27 08:54 | CA_ITS ---
Transthoracic Echocardiogram Patient (Last, First, Middle): Aurora Stevenson, Gender: Female Date of : 1955 Age: 67 Procedure Date: 08/27/2022 Procedure Type: Transthoracic Echocardiogram Location: OP Height: 157.48 cm Weight: 59.88 kg BSA: 1.60 m2 Heart Rate: bpm BP: 150 / 90 mmHg Transmission Operator: TO Referring MD: Prosper Bains MD Symptoms: Baseline cardiac evaluation before chemo Study Quality: Fair ECG Rhythm: Sinus Conclusions: - The left ventricular systolic function is normal. The calculated ejection fraction is 64% by biplane method. - No obvious valvular pathology seen on this study. Findings Left Ventricle Normal left ventricular cavity size. There is normal left ventricular wall thickness. The left ventricular systolic function is normal. The calculated ejection fraction is 64% by biplane method. There is no evidence of regional wall motion abnormalities. Diastolic function is indeterminate on the basis of available data. Mild focal hypertrophy of basal septum. LV peak GLS 19.8%; tracking in 3 ch view not clear. Right Ventricle Normal right ventricular cavity size and systolic function. Atria The left atrium is normal in size. Aortic Valve There is a normal trileaflet aortic valve. There is no aortic valve stenosis. There is no aortic valve regurgitation. Mitral Valve The mitral valve appears normal. There is trace mitral valve regurgitation. There is no mitral valve stenosis. Pulmonic Valve The pulmonic valve is likely normal. Tricuspid Valve There is mild tricuspid valve regurgitation. There is no evidence of pulmonary hypertension. Great Vessels The asc aorta is normal in size. Venous The inferior vena cava was not well visualized. The inferior vena cava is normal in size and collapses greater than 50% with inspiration. Pericardium/Pleural There is no evidence of pericardial effusion. Prior Study Comparison No prior study available for comparison. Recommendations, Care & Conclusions No obvious valvular pathology seen on this study. Measurements 2D Linear Measurements IVSd: 1.02 0.6-0.9/0.6-1.0 cm LVIDd: 4.11 3.9-5.3/4.2-5.9 cm LVIDd Index: 2.57 2.4-3.2/2.2-3.1 cm/m2 LVIDs: 2.22 2.0-3.6 cm LVPWd: 0.63 0.7-1.1 cm LA Diam: 2.90 2.7-3.8/3.0-4.0 cm LAIDs Index: 1.81 1.5-2.3 cm/m2 LV Mass: 126.44 67-162/88-224 g LV Mass Index: 79.03 43-95/49-115 g/m2 LVOT Diam: 1.80 3.0+(-)1.3 cm 2D Systolic Function EF 4C: 64.00 >55% EF 2C: 64.90 >55% EF BiP: 63.50 >55% Mitral Valve MV Pk E: 0.60 MV PK A: 0.98 MV Decel Time: 175.00 E/A: 0.60 E'Lateral: 6.42 E'Medial: 5.11 E/E' Med: 11.80 E/E' Lat: 9.40 PHT: 51.00 MVA PHT: 4.31 Decel Dickson: 3.45 Aortic Valve AoV Pk Isak: 1.36 AoV Mn Isak: 0.99 AoV VTI: 0.30 AoV Pk Grad: 7.00 Aov Mn Grad: 4.00 [place] Cont.VTI: 1.85 LVOT LVOT Pk Isak: 1.01 LVOT Mn Isak: 0.69 LVOT VTI: 0.22 LVOT Pk Grad: 4.00 LVOT Mn Grad: 2.00 LVOT Diam: 1.80 LVOT Area: 2.54 Diastolic Function MV Pk E: 0.60 MV Pk A: 0.98 E/A: 0.60 E'Medial: 5.11 E/E' Med: 11.80 E' Laterial: 6.42 E/E' Lat: 9.40 Right Ventricle TAPSE (mm): 21.80 TVS' Isak: 12.40 Tricuspid Valve TR Pk Isak: 2.21 TR Pk Grad: 20.00 RA Press: 3.00 RVSP: 23.00 Great Vessels Aorta Sinus of Valsalva: 2.80 2.0-3.5 cm Ao Asc: 3.00 2.1-3.4 cm Updated in Other Vendor System with Status of Final Tyrel Ramirez MD electronically signed on 08/29/2022 1:01:23 PM with status of Final
== END ==
LOC: HO.CARD 08:50
PROVIDERS: PCP Internal Medicine; Visit Provider Internal Medicine Medical Oncology
DX: C50.919 Malignant neoplasm of unspecified site of unspecified female breast (principal)
CPT/HCPCS: 93306; 93356

== ENCOUNTER 2022-08-28 07:23 | Day surgery (SDC) | payer MEDICARE, MEDICAID, SELFPAY ==
--- NOTE | 2022-08-27 10:21 | HO.ANESPROP2 ---
Documented by User: Monica Mukherjee NP 08/27/22 10:24 HPI - Anesthesia Eval Consult details Narrative: 67yo F for Port-a-Cath Insertion PMFSH Active Problems Active Problems: All Active Problems (Updated 08/12/22 @ 11:14 by Prosper Bains MD) Triple negative breast cancer (Acute) Microcalcification of left breast on mammogram (Acute) Knee pain, bilateral (Acute) Bilateral leg weakness (Acute) Osteopenia (Acute) Osteoarthritis of fingers of both hands (Acute) SANDIE positive (Acute) Past Medical History Medical History SANDIE positive Compression fx, thoracic spine IBS (irritable bowel syndrome) Migraines Osteoarthritis of fingers of both hands Osteopenia Seropositive rheumatoid arthritis Family History Family History Mother HTN (hypertension) Hyperlipidemia Diabetes Arthritis Family history of problems with anesthesia: No Surgical History Surgical History Hx of colonoscopy Hx of tonsillectomy History of Problems with Anesthesia: No Social History Social History (Updated 08/12/22 @ 09:46 by Sonali Mahoney) Household Members: None Housing: Condominium Alcohol intake: never Patient Tobacco Use Status: Never used Tobacco Second Hand Smoke Exposure: No Use of substances other than those prescribed or required for medical reasons: No Are you DNR?: No Advance Directives: No Advance Directives Information Provided: Yes Advance Directives on File: No service: No Current occupational status: unemployed Meds Allergies Allergy/AdvReac Type Severity Reaction Status Date / Time amoxicillin Allergy Intermediate rash Verified 08/12/22 09:46 latex Allergy Intermediate rash Uncoded 08/12/22 09:46 Home Medications Medication Instructions Recorded Confirmed Last Taken Type cyutehkwff-ehcieqllonavy-ajywiydo 1 cap PO Q8H PRN Migraine Headache 04/23/20 08/12/22 Unknown History 50 mg-300 mg-40 mg capsule (Fioricet) cholecalciferol (vitamin D3) 25 25 mcg PO DAILY 06/07/20 08/12/22 Unknown History mcg (1,000 unit) capsule lorazepam 0.5 mg tablet 0.5 mg PO BEDTIME PRN Anxiety 06/07/20 08/12/22 Unknown History acetaminophen 650 mg 650 mg PO Q12H PRN Pain 08/04/21 08/12/22 Unknown History tablet,extended release (Tylenol Arthritis Pain) Exam Exam Date and Time: August 27, 2022 1021 Pertinent Lab Results Pertinent Lab Results: Laboratory Tests 08/20/22 08/20/22 11:08 11:08 WBC 6.2 Hgb 14.8 Hct 45.2 Plt Count 270 D Sodium 143 Potassium 4.3 Chloride 107 Carbon Dioxide 27 BUN 10 Creatinine 0.79 Assessment and Plan Assessment Anesthesia Assessment: Chart Reviewed Final Anesthetic Review Family History of Problems with Anesthesia: No History of Problems with Anesthesia: No Documented by User: Harry Platt MD 08/28/22 08:11 [facility] Past Medical History Medical History SANDIE positive Compression fx, thoracic spine IBS (irritable bowel syndrome) Migraines Osteoarthritis of fingers of both hands Osteopenia Seropositive rheumatoid arthritis Family History Family History Mother HTN (hypertension) Hyperlipidemia Diabetes Arthritis Surgical History Surgical History Hx of colonoscopy Hx of tonsillectomy Social History Social History (Updated 08/12/22 @ 09:46 by Sonali Mahoney) Household Members: None Housing: Condominium Alcohol intake: never Patient Tobacco Use Status: Never used Tobacco Second Hand Smoke Exposure: No Use of substances other than those prescribed or required for medical reasons: No Are you DNR?: No Advance Directives: No Advance Directives Information Provided: Yes Advance Directives on File: No service: No Current occupational status: unemployed Meds Allergies Allergy/AdvReac Type Severity Reaction Status Date / Time amoxicillin Allergy Intermediate rash Verified 08/12/22 09:46 latex Allergy Intermediate rash Uncoded 08/12/22 09:46 Home Medications Medication Instructions Recorded Confirmed Last Taken Type eqypxtkoxp-xjpgkjbxjufoo-usgllpwl 1 cap PO Q8H PRN Migraine Headache 04/23/20 08/12/22 Unknown History 50 mg-300 mg-40 mg capsule (Fioricet) cholecalciferol (vitamin D3) 25 25 mcg PO DAILY 06/07/20 08/12/22 Unknown History mcg (1,000 unit) capsule lorazepam 0.5 mg tablet 0.5 mg PO BEDTIME PRN Anxiety 06/07/20 08/12/22 Unknown History acetaminophen 650 mg 650 mg PO Q12H PRN Pain 08/04/21 08/12/22 Unknown History tablet,extended release (Tylenol Arthritis Pain) Exam Airway Mallampati Class: II TM Dist: >3cm Neck ROM: Full Heart: rrr Lungs: cta Assessment and Plan Assessment Anesthesia Assessment: Anesthesia Plan Discussed Final Anesthetic Review NPO: Yes ASA Class: II Final Preanesthetic Review: No Changes in Pt Med Stat, Meds/Allgs Chart Reviewed, Consent Obtained/Reviewed and Anes Risks/Benef Reviewed Patient Risk: Intermediate Procedure Risk: Low Anesthetic Plan Anesthetic Plan: MAC: and Agree w/ Assess. and Plan Disposition: Standard PACU
--- NOTE | 2022-08-27 11:38 | MHC.SHP ---
Pre-Procedural Eval Section A Date of Service: 08/27/22 The patient is an INPATIENT: No Changes since office visit: No Cold of Flu in the past 2 weeks, No New Medical Problems, No Changes in Medication and No Patient answered all questions The History & Physical has been completed within 30 days and I have reviewed it.: Yes Section B Chief Complaint: Mammographic microcalcification found on diagnosti Allergies: Allergies Allergy/AdvReac Type Severity Reaction Status Date / Time amoxicillin Allergy Intermediate rash Verified 08/12/22 09:46 latex Allergy Intermediate rash Uncoded 08/12/22 09:46 Plan I have reviewed the history and physical and performed a pertinent physical examination on my patient. No changes have occurred unless specified. Time Spent With Patient Time: Total time managing care of this patient today ____ minutes.
--- NOTE | ~2022-08-28 | FL_ITS ---
EXAMINATION: XR FLUOROSCOPY WITH IMAGES CLINICAL INFORMATION: Insertion Port-A-Cath COMPARISON: Chest radiographs 11/06/2021 TECHNIQUE: Fluoroscopy Supervised By: Dr. Goyo Blue. Fluoroscopy Time: 4 seconds. Cumulative Dose: 0.46 mGy. Images: 1. FINDINGS: Right Port-A-Cath is seen with tip in region of proximal SVC and/or distal right brachiocephalic vein. FL/FL guidance in OR IMPRESSION: Fluoroscopy for surgical procedure.
[2022-08-28 08:05] VITALS: BMI 23.9
[2022-08-28 08:30] VITALS: BP 155/87; PULSE 92; RESP 16; TEMP 36.8; O2SAT 99
[2022-08-28] MEDS: Lactated Ringers 1,000 ML 100 ML IVCONT (08:40)
--- NOTE | 2022-08-28 09:36 | W.PM.OPN ---
Operative Note Operative Note Date of Service: 08/28/22 Narrative: Preoperative diagnosis: [] Breast cancer Postop diagnosis: [] Same Procedure [] right internal jugular vein Port-A-Cath placement with Doppler ultrasound, and fluoroscopy Surgeon: [] [employer] Developer: [] Type of Anesthesia: [] MAC Indication for surgery: [] Chemotherapy Findings: [] Patient was brought the operating room, placed on the operating table in a supine position, after an adequate level of MAC anesthesia was induced, using Doppler ultrasound guidance, the right internal jugular vein was identified and marked. The right neck and chest were prepped and draped in usual sterile fashion. Using Seldinger technique, the right internal jugular vein was cannulated and a wire advanced to the level of the superior vena cava under fluoroscopic guidance. A pocket was fashioned approximately 3 finger breaths below the cannulation site, and tunnel to the wire. Port traversed the subcutaneous tunnel, was connected to the port proximally, which was secured to the pocket using 3-0 Vicryl sutures. Next dilating sheath was placed over the wire again in the fluoroscopic guidance and and the wire retrieved. The pre flushed catheter was advanced to the level of the superior vena cava under fluoroscopic guidance. Peel-away sheath was removed without incident. Antegrade and retrograde flow were established Wounds were irrigated, secured hemostasis, and closed using interrupted inverted dermal 3-0 Vicryl sutures followed by Steri-Strips and sterile dressings.. Postprocedure x-ray in the operating room demonstrated port in good position with no pneumothorax. Sponge, needle, and instrument counts were reported to be correct. Patient tolerated the procedure well and emerged from anesthesia stable condition. EBL minimal
[2022-08-28 09:38] VITALS: BP 102/61; PULSE 77; RESP 16; TEMP 36.4; O2SAT 98
[2022-08-28 09:53] VITALS: BP 111/67; PULSE 75; RESP 16; TEMP 36.2; O2SAT 98
[2022-08-28 10:08] VITALS: BP 116/65; PULSE 72; RESP 16; O2SAT 98
[2022-08-28 10:22] VITALS: BP 116/71; PULSE 70; RESP 16; O2SAT 98
== END 2022-08-28 11:00 | disposition home or self-care (01) ==
PROVIDERS: PCP Internal Medicine; Visit Provider Surgery
PROC: (CPT 36561; principal; 2022-08-28 09:00)
DX: Z45.2 Encounter for adjustment and management of vascular access device (principal); C50.912 Malignant neoplasm of unspecified site of left female breast; Z17.1 Estrogen receptor negative status [ER-]; R76.0 Raised antibody titer; M85.80 Other specified disorders of bone density and structure, unspecified site; Z91.040 Latex allergy status; Z79.899 Other long term (current) drug therapy; Z88.1 Allergy status to other antibiotic agents; M05.9 Rheumatoid arthritis with rheumatoid factor, unspecified
CPT/HCPCS: 36561; C1788; J1643; J2795; Q9967

== ENCOUNTER 2022-08-29 21:09 | Emergency (ER) | payer MEDICARE, MEDICAID, SELFPAY ==
[2022-08-29 21:14] VITALS: BP 174/94; PULSE 87; RESP 18; TEMP 37.3; O2SAT 96; BMI 23.7
--- NOTE | 2022-08-29 22:45 | PC.NURSE ---
pt fully ambulatory to dept, visible ecchymosis on right chest at port insertion site. small amount of dried blood on clavicle. pt did take 25mg benadryl, and dexamethasone [employer] pt speaking in full complete sentences no resp distress, call scanlon within reach, awaiting provider
[2022-08-29 23:28] LABS: MANUAL DIFF FLAG NO
[2022-08-29 23:29] LABS: Basophils Percent Auto 0.1 % (0-2); Hematocrit 41.6 % (37.0-47.0); Hemoglobin 14.2 g/dl (12.0-16.0); Imm Gran Abs Auto 0.03 X10*3/uL (0.00-0.03); Imm Gran Pct Auto 0.3 % (0.0-0.4); Lymphocytes Absolute Auto 0.9 X10*3/uL (1.2-4.9); Mean Corpuscular HGB Conc 34.1 g/dl (31.0-35.0); Mean Corpuscular Hemoglobin 29.4 pg (27.0-33.0); Mean Corpuscular Volume 86.1 fL (80.0-98.0); Mean Platelet Volume 9.4 fL (9.4-12.3); Monocytes Absolute Auto 0.3 X10*3/uL (0.1-1.2); Monocytes Percent Auto 2.4 % (2-11); Neutrophils Absolute Auto 10.3 x10*3/uL (2.0-8.3); Neutrophils Percent Auto 89.2 % (45-73); Platelet Count 246 X10*3/uL (160-400); Red Blood Count 4.83 X10*6/uL (4.20-5.50); Red Cell Distribution Width 12.7 % (11.0-16.0); White Blood Count 11.6 X10*3/uL (4.8-10.8)
[2022-08-29 23:34] LABS: INTERNATIONAL NORM RATIO 0.9 (0.9-1.1); Prothrombin Time 10.4 SEC (10.0-13.1)
[2022-08-29 23:37] LABS: Partial Thromboplastin Time 29.2 SEC (26.0-36.4)
[2022-08-29 23:38] LABS: Lactic Acid 0.6 mmol/L (0.5-2.0)
[2022-08-29 23:44] LABS: Alanine Aminotransferase 18 U/L (0-31); Albumin Level 4.6 g/dL (3.5-5.0); Alkaline Phosphatase 70 U/L (39-117); Anion Gap 13 (12-20); Aspartate Amino Transferase 24 U/L (5-31); Bilirubin Direct 0.3 mg/dL (0.0-0.5); Bilirubin Total 1.2 mg/dL (0.0-1.0); Blood Urea Nitrogen 16 mg/dL (9-16); Calcium 9.4 mg/dL (8.4-10.2); Carbon Dioxide 25 mmol/L (22-29); Chloride 107 mmol/L (96-108); Creatinine Clr Calc Pharmacy 57.5; Estimated Glomerular Filt Rate > 60; Glucose Random 130 mg/dL (60-115); Potassium 3.9 mmol/L (3.3-5.1); Sodium 141 mmol/L (135-145); Total Protein 7.4 g/dL (6.5-8.0)
[2022-08-29] MEDS: Famotidine/PF 20 MG/2 ML VIAL IVPUSH (23:47)
[2022-08-29] MEDS: diphenhydrAMINE HCL 50 MG/ML VIAL IVPUSH (23:47)
[2022-08-29] MEDS: methylPREDNISolone Sod Succ 125 MG/2 ML VIAL IVPUSH (23:47)
[2022-08-30 00:42] VITALS: BP 140/72; PULSE 78; RESP 16; TEMP 36.2; O2SAT 98
--- NOTE | 2022-08-30 00:55 | ED.GENADULT ---
HPI - General Adult General Chief complaint: Allergic Reaction Stated complaint: bldding from collarbone, redish in color.chemo t-1 Time Seen by Provider: 08/29/22 22:39 Source: patient Mode of arrival: ambulatory Limitations: no limitations History of Present Illness HPI narrative: Patient comes to the emergency room complaining of facial flushing. Patient states that 1 day prior to arrival to the ED, patient had her 1st round of chemotherapy for triple negative breast cancer. The next day, patient started complaining of facial flushing, no hives, no itching. Patient got in touch with oncology on-call, she was advised to take 1 tablet of Benadryl. Patient states that she did feel better but she still has facial flushing. Additionally, patient complaining that she has a bit of blood coming out from the surgical side where the port was inserted and also complaining of a discoloration of her shoulder on the right side. Patient denies fever chills Related Data Home Medications Medication Instructions Recorded Confirmed [id number] 1 cap PO Q8H PRN Migraine Headache 04/23/20 08/28/22 50 mg-300 mg-40 mg capsule (Fioricet) cholecalciferol (vitamin D3) 25 25 mcg PO DAILY 06/07/20 08/28/22 mcg (1,000 unit) capsule lorazepam 0.5 mg tablet 0.5 mg PO BEDTIME PRN Anxiety 06/07/20 08/28/22 acetaminophen 650 mg 650 mg PO Q12H PRN Pain 08/04/21 08/28/22 tablet,extended release (Tylenol Arthritis Pain) Previous Rx's Medication Instructions Recorded ondansetron 8 mg disintegrating 8 mg PO Q8H #60 tabs 08/20/22 tablet dexamethasone 4 mg tablet 4 mg PO BID #60 tabs 08/21/22 hydrocodone 5 mg-acetaminophen 325 1 tab PO Q4-6H PRN pain #20 tabs 08/28/22 mg tablet Allergies Allergy/AdvReac Type Severity Reaction Status Date / Time amoxicillin Allergy Intermediate rash Verified 08/29/22 21:14 latex Allergy Intermediate rash Uncoded 08/12/22 09:46 Review of Systems Review of Systems: Constitutional : No Weight loss, No Fever, No Chills, No Night Sweats, No Fatigue, No Malaise ENT/Mouth : No Hearing loss, No Ear Pain, No Nasal Congestion, No Sinus Pain, No Hoarseness, No sore throat, No Rhinorrhea, No Swallowing Difficulty Eyes: No Eye Pain, No Swelling, No Redness, No Foreign Body, No Discharge, No Vision Changes Cardiovascular : No Chest Pain, No SOB, No Dyspnea on Exertion, No Orthopnea, No Edema, No Palpitations Respiratory : No Cough, No Sputum, No Wheezing, No Smoke Exposure, No Dyspnea Gastrointestinal : No Nausea, No Vomiting, No Diarrhea, No Constipation, No abdominal Pain, No Hematochezia, No Melena Genitourinary : no irregular bleeding, No Dysuria, No Urinary Frequency, No Hematuria, No Urinary Incontinence, No Urgency, No Flank Pain, No Urinary Flow Changes, No Hesitancy Musculoskeletal : No joint pain, No Myalgias, No Joint Swelling Skin : Complaining of facial flushing, complaining of orange discoloration of her right shoulder, complaining of small amount of blood oozing from the surgical site Neuro : No Weakness, No Numbness, No Paresthesias, No Loss of Consciousness, Dizziness, No Headache Psych : No Anxiety/Panic, No Depression, No SI/HI/AH/VH, No Social Issues, Heme/Lymph: No Bruising, No Bleeding,No Lymphadenopathy Endocrine : No Polyuria, No Polydipsia, No Temperature Intolerance PMFSH Past Medical History Medical History SANDIE positive Compression fx, thoracic spine IBS (irritable bowel syndrome) Migraines Osteoarthritis of fingers of both hands Osteopenia Seropositive rheumatoid arthritis Surgical History Hx of colonoscopy Hx of tonsillectomy Family History Family History Mother HTN (hypertension) Hyperlipidemia Diabetes Arthritis Social History Social History (Updated 08/12/22 @ 09:46 by Sonali Mahoney) Household Members: None Housing: Condominium Alcohol intake: never Patient Tobacco Use Status: Never used Tobacco Second Hand Smoke Exposure: No Advance Directives: No Advance Directives Information Provided: No service: No Current occupational status: unemployed Physical Exam ED Vital Signs: Vital Signs - 24 hr 08/29/22 21:14 08/30/22 00:42 Temperature 99.2 F 97.2 F Pulse Rate 87 78 Respiratory Rate 18 16 Blood Pressure 174/94 H 140/72 H Pulse Oximetry 96 98 Oxygen Delivery Method Room Air Room Air BMI result Body Mass Index 23.7 Const Other: Appearance: Alert. Oriented X3. No acute distress. Eyes: Pupils equal, round and reactive to light. ENT: Pharynx normal. Neck: Normal inspection. Neck supple. No lymph nodes noted. No crepitus CVS: Normal heart rate and rhythm. Pulses normal. Normal S1 and S2 Respiratory: No respiratory distress. Breath sounds normal. No Wheezing. No rales Abdomen: Soft and nontender. No rigidity. No distention. Skin: Mild facial flushing, no hives. There is scant amount of blood at the site of the port insertion on the right side of the neck, patient's right shoulder is orange from the ChloraPrep solution Skin warm and dry. Normal skin color. Normal skin turgor. Extremities: No lower extremity edema. No Lacerations. No Rash Neuro: Oriented X 3. No motor deficit. No sensory deficit. Moving all extremities. No slurred speech. CN 2 through 12 grossly intact Psych: calm, cooperative, normal affect Medications Administered Discontinued Medications Generic Name Dose Route Start Last Admin Trade Name Freq PRN Reason Stop Dose Admin Diphenhydramine HCl 50 mg 08/29/22 23:20 08/29/22 23:47 Diphenhydramine Hcl 50 Mg/Ml Vial IVPUSH 08/29/22 23:21 50 mg ONCE ONE Administration Famotidine 20 mg 08/29/22 23:20 08/29/22 23:47 Famotidine/Pf 20 Mg/2 Ml Vial IVPUSH 08/29/22 23:21 20 mg ONCE ONE Administration Methylprednisolone Sodium Succinate 125 mg 08/29/22 23:20 08/29/22 23:47 Methylprednisolone Sod Succ 125 Mg/2 Ml Vial IVPUSH 08/29/22 23:21 125 mg ONCE ONE Administration Medical Decision Making Medical Decision Making [facility] Narrative: -per Dr. Atkins's request, blood work has been obtained. -patient was given IV Solu-Medrol, Pepcid, Benadryl. -discussed with the patient that her right shoulder is orange because of the ChloraPrep solution -the Steri-Strips were change in the patient's neck, there is no bleeding present now -patient can follow-up with Oncology Differential Diagnosis Differential Diagnoses: The differential diagnosis associated with the presentation includes (Allergic reaction, side effect to chemotherapy) Consult Healthcare Provider Management of the patient was discussed with: Software Security Consultant Lab Data [facility] Lab Attestation statement: I reviewed the patient's lab results. 08/29/22 23:23 08/29/22 23:23 Labs: Lab Results 08/29/22 08/29/22 08/29/22 Range/Units 23:23 23:23 23:23 WBC 11.6 H (4.8-10.8) X10*3/uL RBC 4.83 (4.20-5.50) X10*6/uL Hgb 14.2 (12.0-16.0) g/dl Hct 41.6 (37.0-47.0) % MCV 86.1 (80.0-98.0) fL MCH 29.4 (27.0-33.0) pg MCHC 34.1 (31.0-35.0) g/dl RDW 12.7 (11.0-16.0) % Plt Count 246 (160-400) X10*3/uL MPV 9.4 (9.4-12.3) fL Immature Gran % (Auto) 0.3 (0.0-0.4) % Neut % (Auto) 89.2 H (45-73) % Lymph % (Auto) 8.0 L (20-40) % [place] % (Auto) 2.4 (2-11) % Eos % (Auto) 0.0 (0-4) % Baso % (Auto) 0.1 (0-2) % Lymph # (Auto) 0.9 L (1.2-4.9) X10*3/uL [place] # (Auto) 0.3 (0.1-1.2) X10*3/uL Eos # (Auto) 0.0 (0.0-0.4) X10*3/uL Baso # (Auto) 0.0 (0.0-0.2) X10*3/uL Abs Immat Gran (auto) 0.03 (0.00-0.03) X10*3/uL Absolute Neuts (auto) 10.3 H (2.0-8.3) x10*3/uL Absolute Nucleated RBC 0.000 (0.0-0.012) X10*3/uL Nucleated RBC % (auto) 0.0 (0.0-0.2) /100WBC PT (10.0-13.1) SEC INR (0.9-1.1) APTT 29.2 (26.0-36.4) SEC Sodium 141 (135-145) mmol/L Potassium 3.9 (3.3-5.1) mmol/L Chloride 107 (96-108) mmol/L Carbon Dioxide 25 (22-29) mmol/L Anion Gap 13 (12-20) BUN 16 (9-16) mg/dL Creatinine 0.75 (0.5-1.4) mg/dL Estim Creat Clear Calc 57.5 Estimated GFR > 60 Random Glucose 130 H (60-115) mg/dL Lactic Acid (0.5-2.0) mmol/L Calcium 9.4 (8.4-10.2) mg/dL Total Bilirubin 1.2 H (0.0-1.0) mg/dL Direct Bilirubin 0.3 (0.0-0.5) mg/dL AST 24 (5-31) U/L ALT 18 (0-31) U/L Alkaline Phosphatase 70 (39-117) U/L Total Protein 7.4 (6.5-8.0) g/dL Albumin 4.6 (3.5-5.0) g/dL 08/29/22 08/29/22 Range/Units 23:23 23:23 WBC (4.8-10.8) X10*3/uL RBC (4.20-5.50) X10*6/uL Hgb (12.0-16.0) g/dl Hct (37.0-47.0) % MCV (80.0-98.0) fL MCH (27.0-33.0) pg MCHC (31.0-35.0) g/dl RDW (11.0-16.0) % Plt Count (160-400) X10*3/uL MPV (9.4-12.3) fL Immature Gran % (Auto) (0.0-0.4) % Neut % (Auto) (45-73) % Lymph % (Auto) (20-40) % [place] % (Auto) (2-11) % Eos % (Auto) (0-4) % Baso % (Auto) (0-2) % Lymph # (Auto) (1.2-4.9) X10*3/uL [place] # (Auto) (0.1-1.2) X10*3/uL Eos # (Auto) (0.0-0.4) X10*3/uL Baso # (Auto) (0.0-0.2) X10*3/uL Abs Immat Gran (auto) (0.00-0.03) X10*3/uL Absolute Neuts (auto) (2.0-8.3) x10*3/uL Absolute Nucleated RBC (0.0-0.012) X10*3/uL Nucleated RBC % (auto) (0.0-0.2) /100WBC PT 10.4 (10.0-13.1) SEC INR 0.9 (0.9-1.1) APTT (26.0-36.4) SEC Sodium (135-145) mmol/L Potassium (3.3-5.1) mmol/L Chloride (96-108) mmol/L Carbon Dioxide (22-29) mmol/L Anion Gap (12-20) BUN (9-16) mg/dL Creatinine (0.5-1.4) mg/dL Estim Creat Clear Calc Estimated GFR Random Glucose (60-115) mg/dL Lactic Acid 0.6 (0.5-2.0) mmol/L Calcium (8.4-10.2) mg/dL Total Bilirubin (0.0-1.0) mg/dL Direct Bilirubin (0.0-0.5) mg/dL AST (5-31) U/L ALT (0-31) U/L Alkaline Phosphatase (39-117) U/L Total Protein (6.5-8.0) g/dL Albumin (3.5-5.0) g/dL Discharge Plan Discharge Clinical Impression: Medication side effects Patient Disposition: Home, Self-Care Additional Instructions: Please follow-up with your primary care physician tomorrow. If you have any worsening or new symptoms, please return to the emergency room or call 911 Prescriptions: No Action dexamethasone 4 mg Tablet 4 mg PO BID Qty: 60 3RF Rx Instructions: Take 4 mg twice a day, On days 2 and 3 of chemotherapy, Every 3 weeks. ondansetron 8 mg Tablet,Disintegrating 8 mg PO Q8H Qty: 60 4RF hydrocodone-acetaminophen 5-325 mg tablet 1 tab PO Q4-6H PRN (Reason: pain) Qty: 20 0RF Rx Instructions: Partial Fill upon patient request. [id number] [Fioricet] 50-300-40 mg capsule 1 cap PO Q8H PRN (Reason: Migraine Headache) acetaminophen [Tylenol Arthritis Pain] 650 mg tablet extended release 650 mg PO Q12H PRN (Reason: Pain) lorazepam 0.5 mg tablet 0.5 mg PO BEDTIME PRN (Reason: Anxiety) cholecalciferol (vitamin D3) 25 mcg (1,000 unit) capsule 25 mcg PO DAILY
== END 2022-08-30 01:23 | disposition home or self-care (01) ==
PROVIDERS: Emergency Provider Emergency Medicine; PCP Internal Medicine
DX: R23.2 Flushing (principal); T45.1X5A Adverse effect of antineoplastic and immunosuppressive drugs, initial encounter; Y92.9 Unspecified place or not applicable; C50.919 Malignant neoplasm of unspecified site of unspecified female breast; Z92.21 Personal history of antineoplastic chemotherapy
CPT/HCPCS: 36415; 80048; 80076; 83605; 85025; 85610; 85730; 87040; 96374; 96375; 99284; J1200; J2930

== ENCOUNTER → 2022-09-04 09:40 | Outpatient (BNVA) | payer MEDICARE, MEDICAID, SELFPAY | PROVIDERS: PCP Internal Medicine; Visit Provider Surgery | DX: Z43.8 Encounter for attention to other artificial openings (principal); C50.911 Malignant neoplasm of unspecified site of right female breast | CPT/HCPCS: 99212 ==

== ENCOUNTER 2022-10-08 08:58 | Outpatient (REF) | payer MEDICARE, MEDICAID, SELFPAY ==
--- NOTE | ~2022-10-08 | US_ITS ---
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 Follow-up post chemotherapy. COMPARISON: Left breast ultrasound 07/30/2022, diagnostic left mammography 07/30/2022, outside mammography 07/09/2022 ([facility]), MRI breasts 08/14/2022. TECHNIQUE: Ultrasound of the left breast is targeted to the upper outer quadrant. Grayscale imaging and color Doppler are performed without and with harmonics. FINDINGS: There is an irregular hypoechoic mass upper outer quadrant with posterior shadowing. There is a HydroMark biopsy clip marker also demonstrated adjacent to the lesion corresponding to the recent ultrasound guided biopsy. The hypoechoic portion of the mass measures approximately 0.9 x 0.8 cm compared with prior measurements 1.5 x 1.4 cm. Results are discussed with the patient at time of visit. Additional characterization with diagnostic mammography was offered at time of visit, but declined by the patient. US/US breast LT limited IMPRESSION: -Left breast malignancy upper outer quadrant slightly decreased in size from prior imaging 07/14/2022. -Current ultrasound dimensions are approximately 0.9 cm compared with prior measurement 1.5 cm. ASSESSMENT: BI-RADS 6: Known Biopsy-Proven Malignancy RECOMMENDATION: Patient to follow-up with Dr. Herson carbone for continued management. This patient's information was entered into a reminder system with a target due date for their next mammogram.
== END 2022-10-08 08:59 | disposition home or self-care (01) ==
LOC: HO.MAMMO 08:58
PROVIDERS: PCP Internal Medicine; Visit Provider Internal Medicine Medical Oncology
DX: C50.412 Malignant neoplasm of upper-outer quadrant of left female breast (principal)
CPT/HCPCS: 76641; 76642

== ENCOUNTER → 2022-12-04 12:47 | Outpatient (REF) | payer MEDICARE, MEDICAID, SELFPAY ==
--- NOTE | 2022-12-04 12:50 | CA_ITS ---
Transthoracic Echocardiogram Limited Patient (Last, First, Middle): Aurora Stevenson, Gender: Female Date of : 1955 Age: 67 Procedure Date: 12/04/2022 Procedure Type: Transthoracic Echocardiogram Limited Location: OP Height: 157.48 cm Weight: 59.88 kg BSA: 1.60 m2 Heart Rate: bpm BP: 118 / 60 mmHg Ironer Hand: Referring MD: Prosper Bains MD Band Cutter: Ha Brannon MD Symptoms: Assess cardiac function on chemo Study Quality: Fair ECG Rhythm: Sinus Conclusions: - Normal LV ejection fraction of 60 65% with grade 1 diastolic dysfunction Findings Left Ventricle Normal left ventricular size, thickness, and systolic function. The visually estimated ejection fraction is between 60-65%. Spectral Doppler is indicative of an impaired relaxation filling pattern. E/E prime ratio is <8, consistent with normal filling pressures. Evidence suggests grade I (mild) diastolic dysfunction. Pericardium/Pleural There is no evidence of pericardial effusion. Prior Study Comparison No significant change compared to prior study dated: 08/27/2022. Measurements 2D Linear Measurements IVSd: 1.08 0.6-0.9/0.6-1.0 cm LVIDd: 3.28 3.9-5.3/4.2-5.9 cm LVIDd Index: 2.05 2.4-3.2/2.2-3.1 cm/m2 LVIDs: 2.05 2.0-3.6 cm LVPWd: 1.02 0.7-1.1 cm LV Mass: 125.25 67-162/88-224 g LV Mass Index: 78.28 43-95/49-115 g/m2 2D Systolic Function EF 4C: 58.60 >55% EF 2C: 69.40 >55% EF BiP: 64.20 >55% Mitral Valve MV Pk E: 0.61 MV PK A: 0.98 MV Decel Time: 141.00 E/A: 0.60 E'Lateral: 7.29 E'Medial: 5.22 E/E' Med: 11.60 E/E' Lat: 8.30 PHT: 41.00 MVA PHT: 5.37 Decel [place]: 4.32 Diastolic Function MV Pk E: 0.61 MV Pk A: 0.98 E/A: 0.60 E'Medial: 5.22 E/E' Med: 11.60 E' Laterial: 7.29 E/E' Lat: 8.30 Tricuspid Valve TR Pk Isak: 2.17 TR Pk Grad: 19.00 Updated in Other Vendor System with Status of Final Ha Brannon MD electronically signed on 12/05/2022 3:23:11 PM with status of Final
== END ==
LOC: HO.CARD 12:47
PROVIDERS: PCP Internal Medicine; Visit Provider Internal Medicine Medical Oncology
DX: C50.919 Malignant neoplasm of unspecified site of unspecified female breast (principal)
CPT/HCPCS: 93308

== ENCOUNTER → 2022-12-04 12:50 | Outpatient (BNV) | payer MEDICARE, MEDICAID, SELFPAY | PROVIDERS: PCP Internal Medicine; Visit Provider Internal Medicine Cardiovascular Disease | DX: I51.9 Heart disease, unspecified (principal) | CPT/HCPCS: 93308 ==

== ENCOUNTER 2022-12-07 12:21 | Outpatient (REF) | payer MEDICARE, MEDICAID, SELFPAY ==
--- NOTE | ~2022-12-07 | MM_ITS ---
EXAMINATION: MM DIAGNOSTIC DIGITAL BREAST TOMOSYNTHESIS, LEFT CLINICAL INFORMATION: 67-year-old patient with a biopsy-proven left breast cancer in July 2022. The patient is currently undergoing chemotherapy. This is a surveillance mammogram and ultrasound. COMPARISON: This study is compared with prior mammography, sonography and breast MRI dating back to July 2022. MAMMOGRAM: TECHNIQUE: Digital breast tomosynthesis is performed in both the craniocaudal and mediolateral oblique views along with computer-aided detection (CAD). Synthesized 2D images are generated from the tomosynthesis. FINDINGS: The breasts are heterogeneously dense, which may obscure small masses (ACR BI-RADS breast composition Category c). Following the patient's tissue diagnosis, a breast MRI showed the cancer to be in the 10:00 position of the left and to measure 26 mm x 19 mm x 16 mm. On the mammogram, there is a 26 mm span of abnormal calcifications. Few coarse calcifications have developed in the same region. This may be a sign cell and not an indicator of failure of chemotherapy. There are no significant masses, abnormal calcifications, or other abnormalities. ULTRASOUND: Sonography of the left breast 12:00 region 4 cm from the nipple was performed. Please note that this labeling indicates a different location than location of tumor noted on the MRI. This is owing to the difference in position of the patient for the ultrasound, supine versus prone for breast MRI. This is the same finding however. I sonography this finding measures 16 mm x 14 mm x 10 mm. On the previous ultrasound it measured 15 mm x 10 mm x 14 mm. Please note that the most accurate measurement of this patient's breast cancer should be based on MRI. The overall lack of change in size, both mammographically and sonographically, are not indicators of chemotherapy failure. The additional coarse calcification however is somewhat helpful in that it may be a sign of cell . MM/MM tomosynthesis diagnostic LT IMPRESSION: No mammographic or sonographic changes in size of patient's known right breast cancer. MRI examination is most helpful in assessing true size in response to chemotherapy. Please see body of report. Results are provided to the patient at time of visit by the technologist. ASSESSMENT: BI-RADS BI-RADS 6 - Known biopsy proven malignancy RECOMMENDATION: 1 year F/U The recommended follow-up is also per the consulting surgeon and oncologist with respect to the patient's therapies and any follow-up breast MRI which may be ordered.. This patient's information was entered into a reminder system with a target due date for their next mammogram.
== END 2022-12-07 12:22 | disposition home or self-care (01) ==
LOC: HO.MAMMO 12:21
PROVIDERS: Visit Provider Internal Medicine Medical Oncology
DX: C50.412 Malignant neoplasm of upper-outer quadrant of left female breast (principal)
CPT/HCPCS: 76642; 77061; 77065

== ENCOUNTER → 2022-12-07 13:00 | Outpatient (BNV) | payer MEDICARE, MEDICAID, SELFPAY | PROVIDERS: Visit Provider Radiology Diagnostic Radiology | DX: C50.912 Malignant neoplasm of unspecified site of left female breast (principal) | CPT/HCPCS: 76642; 77061; 77065 ==

== ENCOUNTER 2023-02-24 12:04 | Outpatient (REF) | payer MEDICARE, MEDICAID, SELFPAY ==
--- NOTE | ~2023-02-24 | MR_ITS ---
EXAMINATION: MR BREAST WITHOUT AND WITH CONTRAST, BILATERAL CLINICAL INFORMATION: Left breast carcinoma. Assess for residual disease following neoadjuvant chemotherapy. COMPARISON: Bilateral breast MRI 08/14/2022, left mammogram and targeted left breast ultrasound 12/07/2022 TECHNIQUE: Imaging was performed with a dedicated breast coil. Prior to the administration of contrast, bilateral axial T1 and bilateral axial T2 weighted sequences were obtained. After the uneventful administration of?6 mL of Gadavist, dynamic contrast-enhanced VIBRANT series through the breasts in the axial plane were performed. Subtracted images were performed and reviewed. A delayed sagittal sequence through both breasts was acquired. Additionally, CAD post-processing, including maximum intensity projections, 3-D reconstructions and kinetic analysis, were performed an independent workstation and reviewed by the interpreting radiologist is a portion of this exam. FINDINGS: The patient's heterogeneously dense fibroglandular tissue demonstrates no significant background parenchymal enhancement. LEFT BREAST: At the site of biopsy-proven malignancy, 10:00 position, 8 cm from the nipple, 3 cm from the chest wall and 3 cm from the medial skin surface, there is a tiny amount of residual nodular enhancement present adjacent to the area of susceptibility artifact. As compared to the pretreatment MRI, which demonstrated an irregular enhancing mass measuring 2.7 x 1.6 cm, this suggests a near complete response to neoadjuvant therapy. The residual T1 hypointense, irregular abnormality in this location now measures 1.5 x 0.7 cm, significantly decreased as compared to prior. There is no skin thickening or skin enhancement. No new area of enhancement or enhancing mass is seen. RIGHT BREAST: No suspicious masslike or non-masslike enhancement. No abnormal skin thickening or nipple retraction. No abnormal architectural distortion. Review of the T2 weighted images demonstrates no fibrocystic changes or dilated ducts. Review of kinetic images reveals no additional findings. There is a prepectoral medi-port catheter. There is no suspicious internal mammary chain or axillary adenopathy. Limited views of the chest and abdomen are unremarkable. MR/MR breast BI wo/w con IMPRESSION: Left breast carcinoma, the index lesion is in the 10:00 position, 8 cm from the nipple as above. There has been a near complete response to neoadjuvant chemotherapy with only minimal residual nodular enhancement at the site of previously seen 2.7 cm irregular enhancing mass. ASSESSMENT: LEFT BREAST: BI-RADS 6- Known malignancy is present. RIGHT BREAST: BI-RADS 1-Negative RECOMMENDATIONS: Appropriate action, clinical management of left breast carcinoma as per Dr. Bains.
[2023-02-24] MEDS: gadobutroL 7.5 ML VIAL IVPUSH (13:35)
== END 2023-02-24 12:05 | disposition home or self-care (01) ==
LOC: HO.MRI 12:04
PROVIDERS: PCP Internal Medicine; Visit Provider Internal Medicine Medical Oncology
DX: C50.919 Malignant neoplasm of unspecified site of unspecified female breast (principal)
CPT/HCPCS: 77049; A9585

== ENCOUNTER 2023-03-02 03:02 | Emergency (ER) | payer MEDICARE, SELFPAY ==
--- NOTE | ~2023-03-02 | US_ITS ---
EXAMINATION: US VENOUS ULTRASOUND WITH DOPPLER LOWER EXTREMITY, RIGHT CLINICAL INFORMATION: Pain and edema right lower extremity COMPARISON: None available. TECHNIQUE: Ultrasound of the deep veins is performed from the hip to the calf with compression sonography and color and pulse Doppler assessment. Spectral analysis with color-flow imaging is performed. FINDINGS: There is normal venous compression and respiratory variation and augmented flow. The visualized common femoral vein, superficial femoral vein, profunda femoral vein, popliteal vein, and the trifurcation region shows no evidence of deep venous thrombosis. There is normal flow within the contralateral common femoral vein. US/US venous duplex LE RT IMPRESSION: No DVT demonstrated in the right lower extremity.
[2023-03-02 03:07] VITALS: BP 153/88; PULSE 124; RESP 20; TEMP 38; O2SAT 98; BMI 24.1
[2023-03-02 07:45] VITALS: BP 155/88; PULSE 105; RESP 16; TEMP 36.7; O2SAT 99
--- NOTE | 2023-03-02 08:13 | ED.LOWEXIN ---
HPI - Extremity Injury (Lower) General Chief Complaint: Extremity Injury, Lower Stated Complaint: R rib pain Time Seen by Provider: 03/02/23 07:46 Source: patient and RN notes reviewed Mode of arrival: ambulatory Limitations: no limitations History of Present Illness HPI Narrative: This is a 67-year-old female, with a past medical history of triple negative breast cancer on chemotherapy, osteopenia, presenting to the emergency department with complaints of right leg pain x3 days. Patient states that she was caring up a heavy metal clothing rack up several steps. She states that the next morning she woke up with significant right lower leg pain. Patient reports that she has been able to ambulate however reports that this worsens her pain. Reports she has been taking Tylenol for her pain which has provided her with significant relief. She denies any fevers, chills, nausea, vomiting, or diarrhea. No dark colored urine. She had a fever of 100.4 in triage, otherwise no other fevers noted. No chest pain or shortness of breath. No recent cough. No other complaints or concerns at this time. MD complaint: leg injury Place: home Severity: mild Relieving factors: nothing Exacerbating factors: nothing Other symptoms: none Related Data Home Medications Medication Instructions Recorded Confirmed lqidzpqnvh-fgydvbxgcspyc-xpayefhf 1 cap PO Q8H PRN Migraine Headache 04/23/20 12/08/22 50 mg-300 mg-40 mg capsule (Fioricet) cholecalciferol (vitamin D3) 25 25 mcg PO DAILY 06/07/20 12/08/22 mcg (1,000 unit) capsule lorazepam 0.5 mg tablet 0.5 mg PO BEDTIME PRN Anxiety 06/07/20 12/08/22 acetaminophen 650 mg 650 mg PO Q12H PRN Pain 08/04/21 12/08/22 tablet,extended release (Tylenol Arthritis Pain) Previous Rx's Medication Instructions Recorded ondansetron 8 mg disintegrating 8 mg PO Q8H #60 tabs 08/20/22 tablet dexamethasone 4 mg tablet 4 mg PO BID #60 tabs 08/21/22 hydrocodone 5 mg-acetaminophen 325 1 tab PO Q4-6H PRN pain #20 tabs 08/28/22 mg tablet clotrimazole 10 mg tram 10 mg mucous membrane 5XD #50 tabs 12/14/22 Allergies Allergy/AdvReac Type Severity Reaction Status Date / Time amoxicillin Allergy Intermediate Rash Verified 12/08/22 15:18 latex Allergy Intermediate Rash Verified 12/08/22 15:18 Review of Systems Review of Systems: Yes all other systems are reviewed and are negative [facility] Past Medical History Medical History SANDIE positive Compression fx, thoracic spine IBS (irritable bowel syndrome) Migraines Osteoarthritis of fingers of both hands Osteopenia Seropositive rheumatoid arthritis Surgical History Hx of colonoscopy Hx of tonsillectomy Family History Family History Mother HTN (hypertension) Hyperlipidemia Diabetes Arthritis Social History Social History Household Members: None Housing: Condominium Alcohol intake: never Patient Tobacco Use Status: Never used Tobacco Second Hand Smoke Exposure: No Advance Directives: No Advance Directives Information Provided: No service: No Current occupational status: unemployed Physical Exam Vital Signs: Vital Signs: Last Vital Signs Temp 98.1 F 03/02/23 07:45 Pulse 105 H 03/02/23 07:45 Resp 16 03/02/23 07:45 BP 155/88 H 03/02/23 07:45 Pulse Ox 99 03/02/23 07:45 O2 Del Method Room Air 03/02/23 07:45 BMI result Body Mass Index 24.1 Const: Other: General: Awake, alert, and oriented X3. No acute distress. HEENT: Normal inspection CVS: Normal heart rate and rhythm. Pulses normal. Respiratory: No respiratory distress Skin: Warm, dry, no rashes noted to exposed skin. Normal skin color. Normal skin turgor. Extremities: Right calf is well perfused with mild tenderness to palpation. DP pulse 2+. full ROM of the ankle. No swelling noted. Mild TTP in the right upper thigh. No overlying skin changes or warmth. Neuro: Oriented X 3. No motor deficit. No sensory deficit. Medical Decision Making Medical Decision Making MDM Narrative: This is a 67-year-old female presenting to the emergency department with complaints of right leg pain x3 days. Patient was ambulating with a heavy clothing rack 3 days ago and woke up the next day with muscle soreness. Patient reports that the pain has been keeping her up at night. Patient arrived to the emergency room low at 3:00 a.m. this morning, blood pressure was 153/88, pulse 124, with a temperature a 100.4?. Patient was not seen in the emergency room until 8:15 a.m. this morning. Repeat blood pressure was 155/88, pulse 105, patient afebrile. Patient is nontoxic appearing. On examination, patient has mild tenderness to the right cap in the right quadriceps. No bony tenderness. Patient is ambulatory with steady gait. Long discussion of patient's tender to care performed with patient. Concern for muscle strain, spasm. Rhabdomylysis was considered given pain however patient denies any dark-colored urine, and states that symptoms improved with Tylenol. Compartment syndrome was also considered however mechanism and examination findings are not consistent with this. Patient refusing laboratory workup but is agreeable to obtaining ultrasound for rule out DVT. Patient also refusing viral swabs. Patient has no chest pain or shortness of breath. Plan: Ultrasound Differential Diagnosis Differential Diagnoses: The differential diagnosis associated with the presentation includes See above Discharge Plan Discharge Clinical Impression: Leg pain, right Patient Disposition: Home, Self-Care Instructions: Leg Cramps (ED), Leg Pain (ED) Additional Instructions: Your ultrasound did no show a blood clot. You likely injured your leg causing you to have muscle pain while carrying the heavy clothing rack. Please rest, ice/heat, elevate your legs, gently massage and stretch your leg for pain relief. Please follow up with your oncologist/PCP regarding this visit. If any new or worsening symptoms occur, including but not limited to chest pain, shortness of breath, worsening pain, please return for re-evaluation. Prescriptions: No Action dexamethasone 4 mg Tablet 4 mg PO BID Qty: 60 3RF Rx Instructions: Take 4 mg twice a day, On days 2 and 3 of chemotherapy, Every 3 weeks. ondansetron 8 mg Tablet,Disintegrating 8 mg PO Q8H Qty: 60 4RF clotrimazole 10 mg Tram 10 mg MUCOUS MEMBRANE 5XD Qty: 50 5RF hydrocodone-acetaminophen 5-325 mg tablet 1 tab PO Q4-6H PRN (Reason: pain) Qty: 20 0RF Rx Instructions: Partial Fill upon patient request. ibcuoqucde-bzjpnnayenref-nrnj [Fioricet] 50-300-40 mg capsule 1 cap PO Q8H PRN (Reason: Migraine Headache) acetaminophen [Tylenol Arthritis Pain] 650 mg tablet extended release 650 mg PO Q12H PRN (Reason: Pain) lorazepam 0.5 mg tablet 0.5 mg PO BEDTIME PRN (Reason: Anxiety) cholecalciferol (vitamin D3) 25 mcg (1,000 unit) capsule 25 mcg PO DAILY
== END 2023-03-02 10:02 | disposition home or self-care (01) ==
PROVIDERS: Emergency Provider Emergency Medicine; PCP Internal Medicine
DX: M79.661 Pain in right lower leg (principal)
CPT/HCPCS: 93971; 99283; 99284

== ENCOUNTER 2023-03-12 09:19 | Outpatient (AMB) | payer MEDICARE, SELFPAY ==
--- NOTE | 2023-03-12 09:31 | MHC.OFFVIS ---
Intake Vital Signs 03/12/23 09:32 Weight 135 lb BP 134/89 Blood Pressure Location Rt brachial Position Sitting Pulse 130 H Intake Visit Reasons: ? lumpectomy, questions, consideration of surgery. Intake Note: Patient reports still having chemo tx's for breast ca. Recent labs were a little elevated. Patient eventually wishes to have lumpectomy after chemo is completed. Nurse Infection Control Required: No Accompanied by: Self / Same As Patient Allergies amoxicillin Allergy (Intermediate, Verified 03/12/23 09:34) Rash latex Allergy (Intermediate, Verified 03/12/23 09:34) Rash HPI HPI Comments History of Present Illness Details Patient presents here status post neoadjuvant chemotherapy for her upper inner quadrant left breast triple negative breast cancer. Recent breast MRI demonstrates very good response to her therapy. Patient presents here for discussion of surgical options. Patient is currently taking Keytruda She has had a mildly tumultuous course with her periods chemotherapy regimens but is currently feeling better overall. PFSH Medical History IBS (irritable bowel syndrome) Migraines Osteopenia Compression fx, thoracic spine Osteoarthritis of fingers of both hands Seropositive rheumatoid arthritis SANDIE positive Surgical History Hx of colonoscopy Hx of tonsillectomy Family History Mother HTN (hypertension) Hyperlipidemia Diabetes Arthritis Social History Household Members: None Housing: Condominium Alcohol intake: never Patient Tobacco Use Status: Never used Tobacco Second Hand Smoke Exposure: No service: No Current occupational status: unemployed Physical Exam Vital Signs: Last Vital Signs Pulse 130 H 03/12/23 09:32 BP 134/89 03/12/23 09:32 HEENT Other: No obvious cervical periclavicular or axillary adenopathy bilaterally. Chest Other: Right breast negative. Upper inner quadrant of left breast demonstrates no longer an obvious mass but some mild fullness to the area. Assessment & Plan Assessment & Plan (1) Triple negative breast cancer: Code(s): C50.919 - Malignant neoplasm of unspecified site of unspecified female breast Plan Once she has been cleared for oncology for surgical therapy, I discussed with the patient surgical options which include lumpectomy with sentinel lymph node biopsy or mastectomy. Risks, benefits, alternatives of these procedures were separately reviewed and included but not limited to bleeding, infection, recurrence, numbness, pain, scarring. Personally suggest that patient would be a very good candidate for lumpectomy and sentinel lymph node biopsy. She would then require post procedure radiation therapy for approximately 6 weeks. Patient is scheduled to see Oncology physician next week. As noted above, once completed her neoadjuvant therapy, she will return and we will further discuss surgical intervention and options. All questions were answered. Coding Level of Care Code Est Pt Level 4 (36005) Diagnoses Triple negative breast cancer C50.919
[2023-03-12 09:32] VITALS: BP 134/89; PULSE 130
== END 2023-03-12 10:04 | disposition home or self-care (01) ==
PROVIDERS: PCP Internal Medicine; Visit Provider Surgery
DX: C50.919 Malignant neoplasm of unspecified site of unspecified female breast (principal)
CPT/HCPCS: 99214

== ENCOUNTER → 2023-03-12 09:19 | Outpatient (BNVA) | payer MEDICARE, SELFPAY | PROVIDERS: PCP Internal Medicine; Visit Provider Surgery | DX: C50.212 Malignant neoplasm of upper-inner quadrant of left female breast (principal) | CPT/HCPCS: 99212 ==

== ENCOUNTER 2023-03-22 11:21 | Outpatient (AMB) | payer MEDICARE, SELFPAY ==
[2023-03-22 11:25] VITALS: BP 166/81; PULSE 113
--- NOTE | 2023-03-22 11:25 | MHC.OFFVIS ---
Intake Vital Signs 03/22/23 11:25 Weight 135 lb BP 166/81 H Blood Pressure Location Rt brachial Position Sitting Pulse 113 H Intake Visit Reasons: Re- discuss surgery Intake Note: Patient here to re- discuss surgery. [employer] Advisor Required: No Accompanied by: Friend Allergies amoxicillin Allergy (Intermediate, Verified 03/22/23 11:26) Rash latex Allergy (Intermediate, Verified 03/22/23 11:26) Rash Medication List - Last Reconciled 03/22/23 by Goyo Blue MD acetaminophen ER (Tylenol Arthritis Pain) 650 mg PO Q12H PRN nkbcjptiit-mjaxrfmsshjnp-ulff 50-300-40 mg (Fioricet) 1 cap PO Q8H PRN cholecalciferol (vitamin D3) 25 mcg PO DAILY dexamethasone 4 mg PO BID lorazepam 0.5 mg PO BEDTIME PRN ondansetron 8 mg PO Q8H HPI HPI Comments History of Present Illness Details Patient presents with a friend to discuss her proposed surgical intervention. Patient has been approximately 5 weeks status post completion of chemotherapy. She was referred back from Oncology regarding lumpectomy and sentinel lymph node sampling. A very lengthy discussion was had regarding localize replacement prior to lumpectomy, injection of isotope from nuclear medical for sentinel lymph node sampling the day prior to surgery, and then risks, benefits, alternatives of lumpectomy and sentinel lymph node biopsy. These included but not limited to bleeding, infection, numbness, pain, scarring, requirement for re-excision and the patient wishes to proceed. All questions were answered. Patient wishes to proceed. [facility] Medical History IBS (irritable bowel syndrome) Migraines Osteopenia Compression fx, thoracic spine Osteoarthritis of fingers of both hands Seropositive rheumatoid arthritis SANDIE positive Surgical History Hx of colonoscopy Hx of tonsillectomy Family History Mother HTN (hypertension) Hyperlipidemia Diabetes Arthritis Social History Household Members: None Housing: Condominium Alcohol intake: never Patient Tobacco Use Status: Never used Tobacco Second Hand Smoke Exposure: No service: No Current occupational status: unemployed Physical Exam Vital Signs: Last Vital Signs Pulse 113 H 03/22/23 11:25 BP 166/81 H 03/22/23 11:25 Chest Other: Chest breath sounds bilaterally, HS 1 and 2. No cervical periclavicular or axillary adenopathy bilaterally. Left breast exam negative. Right breast exam negative. GI Other: Soft, benign Assessment & Plan Assessment & Plan (1) Microcalcification of left breast on mammogram: Comment: Patient scheduled for stereotactic biopsy and further interventions and studies will be directed by the results of the above. Patient will see me in follow-up following the biopsies or p.r.n.. Code(s): R92.0 - Mammographic microcalcification found on diagnostic imaging of breast Plan: Arrangements will be made for the above preoperative procedures mentioned in the HPI. For lumpectomy and sentinel lymph node biopsy (2) Triple negative breast cancer: Code(s): C50.919 - Malignant neoplasm of unspecified site of unspecified female breast Orders: Orders MM needle loc LT Today C50.919 - Malignant neoplasm of unspecified site of unspecified female breast, R92.0 - Mammographic microcalcification found on diagnostic imaging of breast NM sentinel node w imaging 04/14/23 C50.919 - Malignant neoplasm of unspecified site of unspecified female breast, R92.0 - Mammographic microcalcification found on diagnostic imaging of breast Coding Level of Care Code Est Pt Level 5 (17830) Diagnoses Microcalcification of left breast on mammogram R92.0 Triple negative breast cancer C50.919
== END 2023-03-22 12:02 | disposition home or self-care (01) ==
PROVIDERS: PCP Internal Medicine; Visit Provider Surgery
DX: C50.919 Malignant neoplasm of unspecified site of unspecified female breast (principal); R92.0 Mammographic microcalcification found on diagnostic imaging of breast
CPT/HCPCS: 99215

== ENCOUNTER → 2023-03-22 11:21 | Outpatient (BNVA) | payer MEDICARE, SELFPAY | PROVIDERS: PCP Internal Medicine; Visit Provider Surgery | DX: C50.919 Malignant neoplasm of unspecified site of unspecified female breast (principal); R92.0 Mammographic microcalcification found on diagnostic imaging of breast | CPT/HCPCS: 99212 ==

== ENCOUNTER 2023-03-23 07:39 | Outpatient (REF) | payer MEDICARE, SELFPAY ==
--- NOTE | ~2023-03-23 | US_ITS ---
EXAMINATION: US ABDOMEN COMPLETE CLINICAL INFORMATION: Elevated LFTs. History of breast cancer. COMPARISON: Ultrasound abdomen complete 11/01/2020. TECHNIQUE: Real-time imaging of the abdominal viscera. FINDINGS: PANCREAS: Normal. ABDOMINAL AORTA: The proximal, mid, and distal segments are normal in caliber. INFERIOR VENA CAVA: Visualized portions are normal. LIVER: The liver is normal in size. The liver contour is normal. Diffuse mild echogenicity to the hepatic parenchyma. 1.6 x 1.1 x 1.3 cm right hepatic cyst. There is no intrahepatic biliary duct dilatation seen. GALLBLADDER: Normal. The gallbladder is physiologically distended without evidence of stones, sludge, polyps, wall thickening or pericholecystic fluid. COMMON BILE DUCT: Normal in caliber measuring 0.5 cm in diameter. RIGHT KIDNEY: Normal. No hydronephrosis. No renal calculi or focal parenchymal lesions. The kidney measures 9.2 cm in maximum dimension. LEFT KIDNEY: Normal. No hydronephrosis. No renal calculi or focal parenchymal lesions. The kidney measures 10.1 cm in maximum dimension. SPLEEN: Normal. The spleen measures 9.1 cm in maximum dimension. FREE FLUID: None. US/US abdomen complete IMPRESSION: Mild hepatic steatosis. Right hepatic cyst.
== END 2023-03-23 07:40 | disposition home or self-care (01) ==
LOC: HO.US 07:39
PROVIDERS: PCP Internal Medicine; Visit Provider Internal Medicine Medical Oncology
DX: R79.89 Other specified abnormal findings of blood chemistry (principal)
CPT/HCPCS: 76700

== ENCOUNTER 2023-04-08 07:50 | Outpatient (REF) | payer MEDICARE, SELFPAY ==
--- NOTE | ~2023-04-08 | MM_ITS ---
EXAMINATION: MM MAMMOGRAM GUIDED RFID LOCALIZATION BREAST, LEFT CLINICAL INFORMATION: Left breast carcinoma status post neoadjuvant chemotherapy. COMPARISON: 12/07/2022. TECHNIQUE NEEDLE LOC: Proper informed consent is obtained from the patient after discussion of the procedure, potential risks and complications, and alternatives including declining the procedure today. Patient was given an opportunity for questions. The patient appeared to understand. The patient consented to the procedure and signed the consent form. GUIDANCE: Digital mammography. APPROACH: Medial Lateral. TARGET: Calcifications and open coil clip. ANESTHESIA: carbonated lidocaine 1%: 5 mL. LOCALIZATION SYSTEM: -[employer] LOCallizer Wire-Free Guidance System with 12g needle applicator. -Length: 10 cm. -RADIOFREQUENCY TAG: ID # [id number] DERMATOTOMY: Single skin-kendell dermatotomy performed. RF Tag ID confirmed with LOCalizer Guidance System prior to placement. The skin is prepped and local anesthesia administered. The needle is positioned and RFID tag deployed. Final images demonstrate the LOCalizer RF tag to reside immediately abutting the clip and calcifications on the CC view, and on the ML view, approximately 5 mm inferior to the main group of calcifications. The patient tolerated the procedure well and had no immediate complications. Dressing placed and home instructions reviewed. MM/MM needle loc LT IMPRESSION: -Status post left breast RFID localization. -Please see final 2 labeled images.
[2023-04-08] MEDS: Lidocaine HCl 1 % 20 ML VIAL 9 ML SUBCUT (08:58)
[2023-04-08] MEDS: Sodium Bicarbonate 8.4% 50 MEQ/50 ML VIAL SUBCUT (08:59)
== END 2023-04-08 07:51 | disposition home or self-care (01) ==
LOC: HO.MAMMO 07:50
PROVIDERS: PCP Internal Medicine; Visit Provider Surgery
DX: C50.912 Malignant neoplasm of unspecified site of left female breast (principal)
CPT/HCPCS: 19281; C1819

== ENCOUNTER 2023-04-15 05:58 | Day surgery (SDC) | payer MEDICARE, SELFPAY ==
--- NOTE | 2023-04-14 12:27 | MHC.SHP ---
Pre-Procedural Eval Section A Date of Service: 04/14/23 The patient is an INPATIENT: No Changes since office visit: No Cold of Flu in the past 2 weeks, No New Medical Problems, No Changes in Medication and No Patient answered all questions The History & Physical has been completed within 30 days and I have reviewed it.: Yes Section B Chief Complaint: Mammographic microcalcification,Malignant neoplasm Allergies: Allergies Allergy/AdvReac Type Severity Reaction Status Date / Time amoxicillin Allergy Intermediate Rash Verified 03/22/23 11:26 latex Allergy Intermediate Rash Verified 03/22/23 11:26 Plan I have reviewed the history and physical and performed a pertinent physical examination on my patient. No changes have occurred unless specified. Time Spent With Patient Time: Total time managing care of this patient today ____ minutes.
[2023-04-15] VITALS (15 sets, daily range): BP systolic 107–154; BP diastolic 61–85; PULSE 65–122; RESP 15–20; TEMP 36.1–36.6; O2SAT 95–100; BMI 24.2; BMI 35.5
--- NOTE | ~2023-04-15 | MM_ITS ---
EXAMINATION: MM SPECIMEN X-RAY BREAST, LEFT BREAST CLINICAL INDICATION: Left breast carcinoma status post neoadjuvant chemotherapy. Excision. COMPARISON: 04/08/2023 TECHNIQUE: Single radiograph of the excised breast tissue is performed using digital mammography. FINDINGS: Specimen demonstrates a blunting calcifications oriented peripherally within the specimen, extending to the margin. The RF ID clip is present as expected. The open coil biopsy clip is amongst the calcifications. Results were called to Dr. Blue in the operating room at the time of imaging.
[2023-04-15] MEDS: Lactated Ringers 1,000 ML 100 ML IVCONT (07:12)
--- NOTE | 2023-04-15 07:20 | HO.ANESPROP2 ---
Documented by User: Monica Mukherjee NP 04/14/23 09:17 HPI - Anesthesia Eval Consult details Narrative: 67yo Left Breast Lumpectomy w/LOCalizer, [place] Node Biopsy 2nd round of chemo finished 02/2023 Dexamethasone BID for RA PMFSH Active Problems Active Problems: All Active Problems (Updated 03/03/23 @ 00:01 by Xiomara Ramirez) Triple negative breast cancer (Acute) Microcalcification of left breast on mammogram (Acute) Knee pain, bilateral (Acute) Bilateral leg weakness (Acute) Osteopenia (Acute) Osteoarthritis of fingers of both hands (Acute) SANDIE positive (Acute) Past Medical History Medical History IBS (irritable bowel syndrome) Migraines Osteopenia Compression fx, thoracic spine Osteoarthritis of fingers of both hands Seropositive rheumatoid arthritis SANDIE positive Family History Family History Mother HTN (hypertension) Hyperlipidemia Diabetes Arthritis Family history of problems with anesthesia: No Surgical History Surgical History Hx of colonoscopy Hx of tonsillectomy History of Problems with Anesthesia: No Social History Social History Household Members: None Housing: Condominium Alcohol intake: never Patient Tobacco Use Status: Never used Tobacco Second Hand Smoke Exposure: No Use of substances other than those prescribed or required for medical reasons: No Are you DNR?: No Advance Directives: No Advance Directives Information Provided: Yes service: No Current occupational status: unemployed Meds Allergies Allergy/AdvReac Type Severity Reaction Status Date / Time amoxicillin Allergy Intermediate Rash Verified 03/22/23 11: latex Allergy Intermediate Rash Verified 03/22/23 11: Home Medications Medication Instructions Recorded Confirmed Last Taken Type rwlborgttn-ivtvsfxdmpggz-hlbkbgdx 1 cap PO Q8H PRN Migraine Headache 04/23/20 03/22/23 Unknown History 50 mg-300 mg-40 mg capsule (Fioricet) cholecalciferol (vitamin D3) 25 25 mcg PO DAILY 06/07/20 03/22/23 Unknown History mcg (1,000 unit) capsule lorazepam 0.5 mg tablet 0.5 mg PO BEDTIME PRN Anxiety 06/07/20 03/22/23 Unknown History acetaminophen 650 mg 650 mg PO Q12H PRN Pain 08/04/21 03/22/23 Unknown History tablet,extended release (Tylenol Arthritis Pain) Exam Pertinent Lab Results Pertinent Lab Results: Laboratory Tests 03/24/23 12:04 WBC 5.6 Hgb 13.9 Hct 41.7 Plt Count 212 Sodium 143 Potassium 4.1 Chloride 109 H Carbon Dioxide 28 BUN 15 Creatinine 0.84 Narrative Narrative: ECHO 11/2022 Conclusions: - Normal LV ejection fraction of 60 65% with grade 1 diastolic dysfunction Assessment and Plan Assessment Anesthesia Assessment: Chart Reviewed Final Anesthetic Review Family History of Problems with Anesthesia: No History of Problems with Anesthesia: No Documented by User: Leonela Cheek DO 04/15/23 07:32 HPI - Anesthesia Eval Consult details Narrative: 67yo Left Breast Lumpectomy w/LOCalizer, [place] Node Biopsy 2nd round of chemo finished 02/2023. PMFSH Past Medical History Medical History IBS (irritable bowel syndrome) Migraines Osteopenia Compression fx, thoracic spine Osteoarthritis of fingers of both hands Seropositive rheumatoid arthritis SANDIE positive Family History Family History Mother HTN (hypertension) Hyperlipidemia Diabetes Arthritis Family history of problems with anesthesia: No Surgical History Surgical History Hx of colonoscopy Hx of tonsillectomy History of Problems with Anesthesia: No Social History Social History Household Members: None Housing: Condominium Alcohol intake: never Patient Tobacco Use Status: Never used Tobacco Second Hand Smoke Exposure: No Use of substances other than those prescribed or required for medical reasons: No Are you DNR?: No Advance Directives: No Advance Directives Information Provided: Yes service: No Current occupational status: unemployed Meds Allergies Allergy/AdvReac Type Severity Reaction Status Date / Time amoxicillin Allergy Intermediate Rash Verified 03/22/23 11:26 latex Allergy Intermediate Rash Verified 03/22/23 11:26 Home Medications Medication Instructions Recorded Confirmed Last Taken Type lxjjfebpfe-tolequklwzbjo-ecpjhdhs 1 cap PO Q8H PRN Migraine Headache 04/23/20 03/22/23 Unknown History 50 mg-300 mg-40 mg capsule (Fioricet) cholecalciferol (vitamin D3) 25 25 mcg PO DAILY 06/07/20 03/22/23 Unknown History mcg (1,000 unit) capsule lorazepam 0.5 mg tablet 0.5 mg PO BEDTIME PRN Anxiety 06/07/20 03/22/23 Unknown History acetaminophen 650 mg 650 mg PO Q12H PRN Pain 08/04/21 03/22/23 Unknown History tablet,extended release (Tylenol Arthritis Pain) Exam Exam Date and Time: April 15, 2023 0720 Height,Weight and Vital Signs: Vital Signs Temperature 97.8 F 04/15/23 06:38 Pulse Rate 88 04/15/23 06:38 Respiratory Rate 16 04/15/23 06:38 Blood Pressure 154/85 H 04/15/23 06:38 Pulse Oximetry 96 04/15/23 06:38 Oxygen Delivery Method Room Air 04/15/23 06:38 Temperature 97.8 F 04/15/23 06:38 Pulse Rate 88 04/15/23 06:38 Respiratory Rate 16 04/15/23 06:38 Blood Pressure 154/85 H 04/15/23 06:38 Pulse Oximetry 96 04/15/23 06:38 Oxygen Delivery Method Room Air 04/15/23 06:38 Height 5 ft 1 in Weight 85.185 kg Airway Mallampati Class: II TM Dist: <=3cm Neck ROM: Full Loose/Missing/Broken Teeth: No Heart: S1S2 Lungs: CTAB Assessment and Plan Assessment Anesthesia Assessment: Anesthesia Plan Discussed and Chart Reviewed Final Anesthetic Review Family History of Problems with Anesthesia: No History of Problems with Anesthesia: No NPO: Yes ASA Class: III Final Preanesthetic Review: No Changes in Pt Med Stat, Meds/Allgs Chart Reviewed, Consent Obtained/Reviewed and Anes Risks/Benef Reviewed Patient Risk: Low Procedure Risk: Low Anesthetic Plan Anesthetic Plan: GA and Agree w/ Assess. and Plan Disposition: Standard PACU
--- NOTE | 2023-04-15 08:07 | P.OP_ITS ---
Operative Note Operative Note Date of Service: 04/15/23 Narrative: Preoperative diagnosis: [] Upper inner quadrant left breast carcinoma Postop diagnosis: [] Same Procedure [] left upper outer quadrant lumpectomy, with localizer device, sentinel lymph node sampling with valeria trace and methylene blue Surgeon: [] Mirza Ventilating Equipment Installer: [] Type of Anesthesia: [] General Indication for surgery: [] Patient is status post neoadjuvant therapy for her breast cancer. Patient had a very good response. Patient now presents for the above-mentioned procedures. Post lumpectomy mammographic studies demonstrates localizer with circumferential generous margins. Pathology recommended taking extra superior margin which was uneventfully performed Findings: [] Patient brought to the operating room, placed on table supine position, after adequate level of general anesthesia was induced, left breast and axillary region were prepped and draped in usual sterile fashion after the breast underwent under sterile technique injected with valeria- trace and methylene blue which was massaged for 5 minutes by the clock. An upper outer quadrant curvilinear incision was made in conjunction with localizer readings and carried down through skin, subcutaneous tissue, where superior and inferior skin flaps were developed using Bovie and very generous circumferential dissection of the localized area was performed using Bovie. At completion, Specimen was tagged and sent for mammographic confirmation which was obtained. Question of superior margin being close, so an extra sliver of superior breast margin was excised with Bovie and tagged and sent for permanent specimen taken. Wound was irrigated, secured hemostasis, and closed using interrupted inverted dermal 3-0 Vicryl sutures from followed by Steri-Strips and sterile dressings. Left axilla was approached where using the Rollbar counter probe for adina trace showed high values , and a curvilinear incision was made along the inferior axillary skin fold and carried down through skin, subcutaneous tissue and, Ludwig's fascia. Superior and inferior skin flaps were developed using Bovie. A collection of reactive and probe positive value lymph nodes were circumferentially dissected out using combination of blunt, sharp, Bovie d issection. Specimen sent for permanent pathology. Wound was irrigated, secured hemostasis, and closed using interrupted inverted dermal 3-0 Vicryl sutures followed by Steri-Strips sterile dressings. All wounds are where infiltrated 0.5% Marcaine at completion. Sponge, needle, instrument counts reported correct. Patient tolerated the procedure well and emerged anesthesia stable condition. EBL minimal Breast [place] Node Biopsy Substrate(s) used for sentinel node biopsy in the neoadjuvant setting: Radiotracer All colored nodes or non-colored nodes present at the end of a dye filled lymphatic channel were removed, if dye was used as the substrate for loc alization: Yes (Valeria trace and methylene blue) All significantly radioactive nodes were removed, if radionuclide was used as the substrate for localization: Yes All palpably suspicious nodes were removed, if present: N/A If clips were placed in pathology-involved nodes, those nodes were identified and removed: N/A General Surg. - Synoptic Notes Breast [place] Node Biopsy Substrate(s) used for sentinel node biopsy in the neoadjuvant setting: Radiotracer All colored nodes or non-colored nodes present at the end of a dye filled lymphatic channel were removed, if dye was used as the substrate for localization: Yes (Valeria trace and methylene blue) All significantly radioactive nodes were removed, if radionuclide was used as the substrate for localization: Yes All palpably suspicious nodes were removed, if present: N/A If clips were placed in pathology-involved nodes, those nodes were identified and removed: N/A
[2023-04-15] MEDS: oxyCODONE HCl Immed Release 5 MG TABLET 10 MG PO (11:02)
[2023-04-15] MEDS: fentaNYL citrate/PF 100 MCG/2 ML VIAL 50 MCG IVPUSH ×2 (11:05→11:21)
== END 2023-04-15 12:45 | disposition home or self-care (01) ==
PROVIDERS: PCP Internal Medicine; Visit Provider Surgery
PROC: (CPT 19301; principal; 2023-04-15 07:30)
PROC: (CPT 19301; 2023-04-15 07:30)
DX: C50.212 Malignant neoplasm of upper-inner quadrant of left female breast (principal); Z17.1 Estrogen receptor negative status [ER-]; M05.9 Rheumatoid arthritis with rheumatoid factor, unspecified; M85.80 Other specified disorders of bone density and structure, unspecified site; Z79.899 Other long term (current) drug therapy; Z88.1 Allergy status to other antibiotic agents; Z91.040 Latex allergy status
CPT/HCPCS: 19301; 38525; 38900; 88305; 88307; 88329; 88341; 88342; 88360; J0131; J0736; J1100; J1885; J2250; J2371; J2405; J2704; J2795; J3010; Q9968

== ENCOUNTER → 2023-04-15 05:58 | Outpatient (BNV) | payer MEDICARE, SELFPAY | PROVIDERS: PCP Internal Medicine; Visit Provider Surgery | DX: C50.212 Malignant neoplasm of upper-inner quadrant of left female breast (principal) | CPT/HCPCS: 19301; 38525; 38900 ==

== ENCOUNTER → 2023-04-19 13:14 | Outpatient (BNVA) | payer MEDICARE, SELFPAY | PROVIDERS: PCP Internal Medicine; Visit Provider Surgery | DX: Z48.01 Encounter for change or removal of surgical wound dressing (principal) | CPT/HCPCS: 99211 ==

== ENCOUNTER 2023-04-23 10:04 | Outpatient (AMB) | payer MEDICARE, SELFPAY ==
[2023-04-23 10:21] VITALS: BP 153/82; PULSE 115
--- NOTE | 2023-04-23 10:21 | A.OFFVIS_ITS ---
Intake Vital Signs 04/23/23 10:21 Weight 137 lb BP 153/82 H Blood Pressure Location Rt brachial Position Sitting Pulse 115 H Intake Visit Reasons: S/P Lt breast lumpectomy, seed & SN bx Intake Note: Patient here s/p Lt breast lumpectomy on 04-15-23. Reports incision healing well. Denies pain or discomfort. Microfiche Camera Operator Required: No Accompanied by: Friend Allergies amoxicillin Allergy (Intermediate, Verified 04/23/23 10:23) Rash latex Allergy (Intermediate, Verified 04/23/23 10:23) Rash HPI HPI Comments History of Present Illness Details Patient presents with her friend. She has no wound issues or complaints. Her pathology was extensively reviewed. [facility] Medical History IBS (irritable bowel syndrome) Migraines Osteopenia Compression fx, thoracic spine Osteoarthritis of fingers of both hands Seropositive rheumatoid arthritis SANDIE positive Surgical History Hx of colonoscopy Hx of tonsillectomy Family History Mother HTN (hypertension) Hyperlipidemia Diabetes Arthritis Social History Household Members: None Housing: Condominium Alcohol intake: never Patient Tobacco Use Status: Never used Tobacco Second Hand Smoke Exposure: No service: No Current occupational status: unemployed Physical Exam Vital Signs: Last Vital Signs Pulse 115 H 04/23/23 10:21 BP 153/82 H 04/23/23 10:21 Chest Other: Breast and axillary wounds healing very well. Assessment & Plan Assessment & Plan (1) Triple negative breast cancer: Code(s): C50.919 - Malignant neoplasm of unspecified site of unspecified female breast (2) Status post breast lumpectomy: Code(s): Z98.890 - Other specified postprocedural states Plan Patient will see me in approximately 3-4 weeks or p.r.n.. She has been given local instructions. After that visit, she will be seen by Oncology and arrangement made for radiation therapy. All questions answered. Coding Level of Care Code Global (44529) Diagnoses Triple negative breast cancer C50.919 Status post breast lumpectomy Z98.890
== END 2023-04-23 10:34 | disposition home or self-care (01) ==
PROVIDERS: PCP Internal Medicine; Visit Provider Surgery
DX: C50.919 Malignant neoplasm of unspecified site of unspecified female breast (principal); Z98.890 Other specified postprocedural states
CPT/HCPCS: 99024

== ENCOUNTER → 2023-04-23 10:04 | Outpatient (BNVA) | payer MEDICARE, SELFPAY | PROVIDERS: PCP Internal Medicine; Visit Provider Surgery | DX: C50.919 Malignant neoplasm of unspecified site of unspecified female breast (principal); Z98.890 Other specified postprocedural states | CPT/HCPCS: 99212 ==

== ENCOUNTER 2023-05-18 10:42 | Outpatient (AMB) | payer MEDICARE, SELFPAY ==
--- NOTE | 2023-05-18 10:48 | A.OFFVIS_ITS ---
Intake Vital Signs 05/18/23 10:49 Weight 137 lb BP 156/98 H Blood Pressure Location Rt brachial Position Sitting Pulse 109 H Intake Visit Reasons: S/P Lt breast lumpectomy, 04/15/23 date of surgery Intake Note: Patient here s/pLt breast lumpectomy on 04-15-23. Patient c/o: Reports incision healing well. C/o mild tenderness and redness. Denies itch or pain. 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 She has no wound issues or complaints. She has not follow- up with Oncology at regarding adjuvant therapy or radiation therapy. [facility] Medical History IBS (irritable bowel syndrome) Migraines Osteopenia Compression fx, thoracic spine Osteoarthritis of fingers of both hands Seropositive rheumatoid arthritis SANDIE positive Surgical History Hx of colonoscopy Hx of tonsillectomy Family History Mother HTN (hypertension) Hyperlipidemia Diabetes Arthritis Social History Household Members: None Housing: Condominium Alcohol intake: never Patient Tobacco Use Status: Never used Tobacco Second Hand Smoke Exposure: No service: No Current occupational status: unemployed Physical Exam Vital Signs: Last Vital Signs Pulse 109 H 05/18/23 10:49 BP 156/98 H 05/18/23 10:49 Chest Other: Left breast wounds clean dry and intact healing uneventfully. Assessment & Plan Assessment & Plan (1) Status post breast lumpectomy: Code(s): Z98.890 - Other specified postprocedural states (2) Triple negative breast cancer: Code(s): C50.919 - Malignant neoplasm of unspecified site of unspecified female breast Plan Current plan is to arrange for patient to follow-up with her oncologist, Dr. Bains for discussion regarding adjuvant/postop therapy and her radiation therapy. Any acute surgical issues patient is instructed to call the office. She will otherwise see me in the breast surveillance program which will be started when she has completed her radiation therapy. All questions answered. Coding Level of Care Code Global (94510) Diagnoses Status post breast lumpectomy Z98.890 Triple negative breast cancer C50.919
[2023-05-18 10:49] VITALS: BP 156/98; PULSE 109
== END 2023-05-18 11:00 | disposition home or self-care (01) ==
PROVIDERS: PCP Internal Medicine; Visit Provider Surgery
DX: Z98.890 Other specified postprocedural states (principal); C50.919 Malignant neoplasm of unspecified site of unspecified female breast
CPT/HCPCS: 99024

== ENCOUNTER → 2023-05-18 10:42 | Outpatient (BNVA) | payer MEDICARE, SELFPAY | PROVIDERS: PCP Internal Medicine; Visit Provider Surgery | DX: C50.912 Malignant neoplasm of unspecified site of left female breast (principal); Z98.890 Other specified postprocedural states | CPT/HCPCS: 99212 ==

== ENCOUNTER 2023-12-09 13:07 | Outpatient (REF) | payer MEDICARE, SELFPAY ==
--- NOTE | ~2023-12-09 | CT_ITS ---
EXAMINATION: CT CHEST WITHOUT CONTRAST CLINICAL INFORMATION: Lung mass. COMPARISON: 12/29/2021 TECHNIQUE: Multidetector volumetric CT imaging of the chest was done. Axial MIP volume rendering provided. Sagittal and coronal reformatted images were obtained. This CT examination was performed using dose optimization techniques as appropriate, variously including the following: *Automated exposure control *Adjustment of mA and/or kV according to patient size (this includes techniques or standardized protocols for targeted exams where dose is matched to indication/reason for exam; i.e. extremities or head) *Use of iterative reconstruction technique DLP: 215 mGy-cm FINDINGS: LUNGS: Stable parenchymal scarring in the anterior right upper lobe. Airspace consolidation anterolateral left upper lobe with air bronchograms. Central airways are patent. MEDIASTINUM: Right chest wall Port-A-Cath with tip just approximating the SVC. No bulky mediastinal or hilar lymphadenopathy. Great vessels are of normal caliber. Heart size is normal. No pericardial effusion. CORONARY ARTERY CALCIFICATION: None visualized on this study. PLEURA: No pleural effusion. CHEST WALL: Fluid collection in the left upper breast measures 3.7 x 5.4 x 5.3 cm. Left breast skin thickening. UPPER ABDOMEN: 1.5 cm hepatic cyst. No adrenal mass. OSSEOUS STRUCTURES: No destructive bone lesions. CT/CT chest wo IV con IMPRESSION: Status post left lumpectomy. Fluid collection in the left upper breast measures 3.7 x 5.4 x 5.3 cm possibly seroma or hematoma. Left breast skin thickening. Dense airspace consolidation in the anterolateral left upper lobe with air bronchograms. This likely represents pneumonia. Has there been recent radiation treatment? Short interval follow-up imaging is advised.
== END 2023-12-09 13:08 | disposition home or self-care (01) ==
LOC: HO.CT 13:07
PROVIDERS: PCP Internal Medicine; Visit Provider Internal Medicine
DX: R05.9 Cough, unspecified (principal)
CPT/HCPCS: 71250

== ENCOUNTER 2023-12-13 10:51 | Outpatient (AMB) | payer MEDICARE, SELFPAY ==
[2023-12-13 11:02] VITALS: BP 145/83; PULSE 115; BMI 24.7
--- NOTE | 2023-12-13 11:02 | A.OFFVIS_ITS ---
Vital Signs 12/13/23 11:02 Height 5 ft 2.5 in Weight 137 lb BMI 24.7 BP 145/83 H Blood Pressure Location Rt brachial Position Sitting Pulse 115 H Intake Visit Reasons: post left lumpectomy possibly seroma or hematoma. Intake Note: Patient is seen in office today to discuss concerns with recent diagnosis of pneumonia. Finished 1 course of abx. Patient c/o: persistent cough. Patient was told she has fluid on the lungs that might be related to lumpectomy procedure or radiation txt. Zipper Machine Operator Required: No Accompanied by: Self / Same As Patient Allergies amoxicillin Allergy (Intermediate, Verified 12/13/23 11:05) Rash latex Allergy (Intermediate, Verified 12/13/23 11:05) Rash HPI Comments Details: Patient presents for evaluation of CT scan findings. Patient has been treated for and ammonia as an outpatient. Because of persistence of symptoms, she underwent a CT scan which demonstrated findings of an incidental seroma status post left lumpectomy. Patient also is status post radiation therapy. At present, her cough has persisted. It was unproductive. She denies any hemoptysis, chest pain, wheezing. Patient was well known to me from prior breast surgery. [facility] Medical History IBS (irritable bowel syndrome) Migraines Osteopenia Compression fx, thoracic spine Osteoarthritis of fingers of both hands Seropositive rheumatoid arthritis SANDIE positive Surgical History Hx of colonoscopy Hx of tonsillectomy Family History Mother HTN (hypertension) Hyperlipidemia Diabetes Arthritis Social History Household Members: None Housing: Condominium Alcohol intake: never Patient Tobacco Use Status: Never used Tobacco Second Hand Smoke Exposure: No service: No Current occupational status: unemployed Physical Exam Vital Signs: Last Vital Signs Pulse 115 H 12/13/23 11:02 BP 145/83 H 12/13/23 11:02 BMI result Body Mass Index 24.7 Chest Other: Lumpectomy incision clean dry and intact. Small seroma palpated but no evidence of any infection or abscess. Assessment & Plan Assessment & Plan (1) Pneumonitis: Code(s): J98.4 - Other disorders of lung Category: Surgical Plan CT scan was reviewed and demonstrates what I think are post radiation changes to the lung. Patient may be experiencing postradiation pneumonitis. Seroma of breast is an incidental finding and no further intervention warranted. Current recommendation is to have patient see a corporate account executive. She states that her medical doctor was going to do this as well. We will see if we can augment this for her. At present, patient will see me after bilateral mammograms in January. She will otherwise follow-up p.r.n.. All questions answered. Orders: Referrals Pulmonology Referral J18.9 - Pneumonia, unspecified organism, R05.8 - Other specified cough Coding Level of Care Code Est Pt Level 3 (25470) Diagnoses Pneumonitis J98.4
== END 2023-12-13 11:24 | disposition home or self-care (01) ==
PROVIDERS: PCP Internal Medicine; Visit Provider Surgery
DX: J98.4 Other disorders of lung (principal)
CPT/HCPCS: 99213

== ENCOUNTER → 2023-12-13 10:51 | Outpatient (BNVA) | payer MEDICARE, SELFPAY | PROVIDERS: PCP Internal Medicine; Visit Provider Surgery | DX: J98.4 Other disorders of lung (principal); R05.8 Other specified cough | CPT/HCPCS: 99212 ==

== ENCOUNTER 2023-12-16 08:49 | Outpatient (AMB) | payer MEDICARE, SELFPAY ==
--- NOTE | 2023-12-16 09:06 | A.OFFVIS_ITS ---
Vital Signs 12/16/23 09:07 Height 5 ft 2.5 in Weight 134 lb 12.623 oz BMI 24.3 BP 118/62 Blood Pressure Location Rt brachial Position Sitting Pulse 98 Pulse Source Doppler Pulse Oximetry (%) 97 Oxygen Delivery Method Room Air Intake Visit Reasons: Abnormal CT scan Allergies amoxicillin Allergy (Intermediate, Verified 12/13/23 11:05) Rash latex Allergy (Intermediate, Verified 12/13/23 11:05) Rash HPI Comments Details: The patient is here for pulmonary evaluation. The patient is a 68-year-old woman with a known history of left-sided breast cancer status post chemotherapy lumpectomy and subsequently radiation. For the last few months she has had worsening cough. She has also felt tired. The cough is typically nonproductive in nature moderate severity. Sometimes also she has felt some crackles or crepitations on her left side. She went to her primary care doctor who had an x-ray done demonstrating what appeared to be an airspace disease consolidation. She was treated apparently with Levaquin for the patient. She states that she felt a little better although she still cough. She did subsequently have a CT scan of the chest which we personally reviewed. Appears that she has some areas of ground-glass opacities in inflammation in the right upper lung zone. In addition to that she has a dense consolidation with some ground-glass opacities also in the lingula just in the window radiation that she received. She also has some fluid in the breast. Within the consolidation there is on nodules as well. No significant lymphadenopathy I could appreciate no pleural fluid. Explained to the patient that this finding is consistent with a pneumonia. It is not clear if it is infectious versus noninfectious pneumonia. She already received levofloxacin. The areas pretty extensive involving the whole lingula. My recommendation was to have her undergo a bronchoscopy to rule out infectious versus noninfectious pneumonia. In which we can properly treat for any infectious etiologies or treat for inflammatory noninfectious organizing pneumonia that is likely due to the radiation therapy. However, the patient is reluctant to undergo a bronchoscopy this time. She understands that without a bronchoscopy we do not have the information needed to properly recommend the best treatment protocol. She understands that if she was on prednisone for inflammatory organizing pneumonia that could potentially suppressive immune system in allow other infectious etiologies to worsen if she has any infectious process going on. She was wondering if she can try different antibiotic. She already took Levaquin which is very strong antibiotic. The only other option is to give her something to treat staph aureus. Cases smoldering Staph aureus infection. Also I did recommend taking 2 antibiotics but she is reluctant to take too many antibiotics. So initially offered doxycycline but she states that previously she had a adverse reaction. Likely GI she does not have doxycycline her allergies. So therefore we can try some Bactrim that would also have the anti-Staph therapy. The patient can have blood work done to assess for other noninfectious inflammatory conditions and also to assess her white count differential. She can also have a repeat chest x-ray provide see her in 3-4 weeks. In the meantime I will give her some cough medication. [facility] Medical History (Updated 12/16/23 @ 20:43 by Brad Tolentino MD) Radiation pneumonitis Pneumonia Chronic cough IBS (irritable bowel syndrome) Migraines Osteopenia Compression fx, thoracic spine Osteoarthritis of fingers of both hands Seropositive rheumatoid arthritis SANDIE positive Surgical History (Updated 12/13/23 @ 13:25 by Goyo Blue MD) Hx of colonoscopy Hx of tonsillectomy Family History Mother HTN (hypertension) Hyperlipidemia Diabetes Arthritis Social History Household Members: None Housing: Condominium Alcohol intake: never Patient Tobacco Use Status: Never used Tobacco Second Hand Smoke Exposure: No service: No Current occupational status: unemployed Review of Systems Const Denies fever(s) Eyes Reports no additional complaints ENT Reports nasal congestion Card Denies chest pain Resp Denies chest congestion, Reports cough and Denies wheezing GI Reports no additional complaints Musc Reports no additional complaints Skin/Breast Denies rash Neuro Reports no additional complaints Salvatore/Lymph Reports no additional complaints Aller/Immun Denies wheezing Physical Exam Vital Signs: Last Vital Signs Pulse 98 12/16/23 09:07 BP 118/62 12/16/23 09:07 Pulse Ox 97 12/16/23 09:07 Oxygen Delivery Method Room Air 12/16/23 09:07 BMI result Body Mass Index 24.3 Const General: comfortable HEENT Head: Yes normocephalic Neck Neck: Yes supple Chest Chest palpation & inspection: normal inspection of the chest Resp Effort & Inspection: normal respiratory effort Auscultation: clear to auscultation bilaterally Cardio Heart sounds: S1 normal heart sound present and S2 normal heart sound present GI Palpation (GI): Soft to palpation Skin General skin exam: no rashes or lesions noted Extrem General: Yes no clubbing, cyanosis or edema Results Reviewed Results Reviewed: I personally reviewed the CT scan with the patient. The patient has a large extensive consolidation involving the whole lingula. Some areas of pneumonitis surrounding it. Also has fluid-filled area on her left breast where she had a lumpectomy. She also has a small area of airspace disease in the right upper l obe area. Assessment & Plan Assessment & Plan (1) Chronic cough: Code(s): R05.3 - Chronic cough Category: Medical (2) Pneumonia: Code(s): J18.9 - Pneumonia, unspecified organism Category: Medical Qualifiers: Pneumonia type: due to unspecified organism Laterality: left Lung location: upper lobe of lung Qualified Code(s): J18.9 - Pneumonia, unspecified organism (3) Pneumonitis: Code(s): J98.4 - Other disorders of lung Category: Surgical (4) Radiation pneumonitis: Code(s): J70.0 - Acute pulmonary manifestations due to radiation Category: Medical Plan the patient is presenting with a chronic cough for the last 2 3 months. Based on the CT scan appears to have a consolidation in the lingula. This is consistent with the radiation window. 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 Infectious etiologies however can not be ruled out. The patient was treated with Levaquin. Indeed a smoldering infection can be in the differential. Explained to the patient that the only way of knowing for sure is deep cultures. I did recommend bronchoscopy in order to facilitate this process since she has been sick for some time. The patient is reluctant to move forward with that. She rather taking empiric antibiotics. using prednisone right now without making sure that she does not have any infectious process would be potentially dangerous. I tried to answer all the questions the patient although she was very reluctant to personal bronchoscopy or is very reluctant to take any medications. Recommendations would benefit from bronchoscopy to rule out infectious versus noninfectious organizing pneumonia will treat with Bactrim in order to treat for potential smoldering infections like with staph aureus that will have now been covered with Levaquin. Could also potentially treat conditions such as Nocardia although Nocardia require longer course. Cough medication blood work the patient should return in 3-4 weeks with an x-ray so we can review her progress. Orders: Orders Immunoglobulin E Today R05.3 - Chronic cough Erythrocyte Sedimentation Rate Today R05.3 - Chronic cough Angiotensin Converting Enzyme Today R05.3 - Chronic cough SANDIE Reflex Titer and Pattern Today R05.3 - Chronic cough Hypersensitive Pneumonitis Prf Today R05.3 - Chronic cough, R91.8 - Other nonspecific abnormal finding of lung field XR chest 2V Today J18.9 - Pneumonia, unspecified organism, R05.3 - Chronic cough Complete Blood Count Auto Diff Today R05.3 - Chronic cough Immunoglobulins,IgG IgA IgM Today R05.3 - Chronic cough Immunoglobulin G Subclasses Today R05.3 - Chronic cough Medications: New sulfamethoxazole-trimethoprim 800-160 mg (Bactrim DS) 1 tab PO BID 28 tabs 0RF 14 days codeine-guaifenesin 10-100 mg/5 mL 10 mL PO Q6H PRN 300 mL 0RF cough 10 days Coding Level of Care Code New Pt Level 5 (16955) Diagnoses Chronic cough R05.3 Pneumonia of left upper lobe due to infectious organism J18.9 Pneumonia type: due to unspecified organism Laterality: left Lung location: upper lobe of lung Pneumonitis J98.4 Radiation pneumonitis J70.0 Time Spent (min) 60
[2023-12-16 09:07] VITALS: BP 118/62; PULSE 98; O2SAT 97; BMI 24.3
== END 2023-12-16 09:44 | disposition home or self-care (01) ==
PROVIDERS: PCP Internal Medicine; Referring Provider Surgery; Visit Provider Hospitalist
DX: R05.3 Chronic cough (principal); J98.4 Other disorders of lung; J70.0 Acute pulmonary manifestations due to radiation
CPT/HCPCS: 99205

== ENCOUNTER → 2023-12-16 08:49 | Outpatient (BNVA) | payer MEDICARE, SELFPAY | PROVIDERS: PCP Internal Medicine; Referring Provider Surgery; Visit Provider Hospitalist | DX: R05.3 Chronic cough (principal); J18.9 Pneumonia, unspecified organism; J98.4 Other disorders of lung; J70.0 Acute pulmonary manifestations due to radiation | CPT/HCPCS: 99202 ==

== ENCOUNTER 2023-12-17 13:18 | Outpatient (REF) | payer MEDICARE, SELFPAY ==
[2023-12-17 15:14] LABS: Erythrocyte Sedimentation Rate 58 MM/HR (0-20)
[2023-12-19 15:47] LABS: Immunoglobulin G Subclass 1 530 mg/dL (382-929); Immunoglobulin G Subclass 2 289 mg/dL (241-700); Immunoglobulin G Subclass 3 26 mg/dL (22-178); Immunoglobulin G Subclass 4 122.5 mg/dL (4-86); Immunoglobulin G Total 1028 mg/dL (600-1540)
[2023-12-20 09:18] LABS: IgA 199 mg/dL (70-320); IgG 1102 mg/dL (600-1540); IgM 160 mg/dL (50-300)
[2023-12-20 17:18] LABS: Immunoglobulin E 89 kU/L (<OR=114)
[2023-12-23 13:13] LABS: Anti Nuclear Antibody Pattern Nuclear, Homogeneous; Anti Nuclear Antibody Screen POSITIVE (NEGATIVE)
[2023-12-31 14:03] LABS: Asperg fumigatus Precip Abs NEGATIVE (NEGATIVE); Micropoly faeni Abs NEGATIVE (NEGATIVE); Pigeon serum Abs NEGATIVE (NEGATIVE); Saccharo pora viridis Abs NEGATIVE (NEGATIVE); Thermo candidus Abs NEGATIVE (NEGATIVE); Thermoa vulgaris #1 NEGATIVE (NEGATIVE)
== END 2023-12-17 13:19 | disposition home or self-care (01) ==
LOC: HO.LAB 13:18
PROVIDERS: PCP Internal Medicine; Visit Provider Hospitalist
DX: R05.3 Chronic cough (principal); R91.8 Other nonspecific abnormal finding of lung field
CPT/HCPCS: 36415; 82164; 82784; 82785; 85652; 86038; 86039; 86331; 86606; 86609

== ENCOUNTER 2024-01-20 12:44 | Outpatient (REF) | payer MEDICARE, SELFPAY ==
--- NOTE | ~2024-01-20 | MM_ITS ---
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 Patient completed left breast radiation in November. Patient also due for yearly bilateral. COMPARISON: Mammography: 04/15/2023, 04/08/2023, 12/07/2022. MRI breasts 02/24/2023. CT chest 12/09/2023. TECHNIQUE: Digital breast tomosynthesis is performed in both the craniocaudal and mediolateral oblique views along with computer-aided detection (CAD). Synthesized 2D images are generated from the tomosynthesis. In addition to standard views, 2-D spot magnification left CC and ML views of the lumpectomy bed were obtained. FINDINGS: The breasts are heterogeneously dense, which may obscure small masses (ACR BI-RADS breast composition Category c). Postlumpectomy changes are present in the superior left breast, with associated scarring, mild trabecular thickening and skin thickening. In addition, there is a large partially imaged fluid collection in the lumpectomy bed at 12:00, most consistent with a postoperative seroma. This could also be seen on the recent chest CT 12/09/2023. No evidence of recurrent suspicious calcifications, suspicious mass, or new region of architectural distortion in either breast. The right breast parenchymal pattern is unchanged from prior exams. No axillary abnormalities in either breast. MM/MM tomosynthesis diagnostic BI IMPRESSION: -There are no findings suspicious for malignancy in either breast. -There are benign postoperative findings in the left breast superiorly including a sizable seroma. -Recommend the patient continue postoperative surveillance in 1 year. ASSESSMENT: BI-RADS BI-RADS 2 - Benign Findings RECOMMENDATION: 1 year F/U Results were provided to the patient at time of visit by the technologist. This patient's information was entered into a reminder system with a target due date for their next mammogram. Electronically signed by: Fam Arce MD 01/20/2024 06:10 PM EDT Workstation: [id number]
== END 2024-01-20 12:45 | disposition home or self-care (01) ==
LOC: HO.MAMMO 12:44
PROVIDERS: PCP Internal Medicine; Visit Provider Internal Medicine Medical Oncology
DX: Z85.3 Personal history of malignant neoplasm of breast (principal)
CPT/HCPCS: 77062; 77066

== ENCOUNTER → 2024-01-20 13:00 | Outpatient (BNV) | payer MEDICARE, SELFPAY | PROVIDERS: PCP Internal Medicine; Visit Provider Radiology Diagnostic Radiology | DX: N64.89 Other specified disorders of breast (principal) | CPT/HCPCS: 77066; G0279 ==

== ENCOUNTER 2024-02-08 11:33 | Outpatient (AMB) | payer MEDICARE, SELFPAY ==
--- NOTE | 2024-02-08 11:34 | A.OFFVIS_ITS ---
Vital Signs 02/08/24 11:42 Height 5 ft 2.5 in Weight 139 lb BMI 25.0 BP 170/88 H Blood Pressure Location Rt brachial Position Sitting Pulse 111 H Intake Visit Reasons: painful area around the (L) breast surg site Intake Note: Patient scheduled urgent appointment for painful area at superior part (L) breast surgical site. Site became irritated after recent mammo on 01-20-2024. Hx of Lt upper quadrant lumpectomy on 04-15-2023. Title I Coordinator Required: No Accompanied by: Self / Same As Patient Allergies amoxicillin Allergy (Intermediate, Verified 02/08/24 11:42) Rash latex Allergy (Intermediate, Verified 02/08/24 11:42) Rash Medication List - Last Reconciled 02/08/24 by Goyo Blue MD acetaminophen ER (Tylenol Arthritis Pain) 650 mg PO Q12H PRN tggqrxvcvt-vxwmakusewrbs-iwzy 50-300-40 mg (Fioricet) 1 cap PO Q8H PRN cholecalciferol (vitamin D3) 25 mcg PO DAILY codeine-guaifenesin 10-100 mg/5 mL 10 mL PO Q6H PRN 10 days sulfamethoxazole-trimethoprim 800-160 mg (Bactrim DS) 1 tab PO BID 14 days HPI Comments Details: Patient presents here in a month follow-up status post recent mammogram 2. Discomfort over her incision of the left breast few days ago after some strenuous activities. She does not recall any trauma to the area per se but has done some heavy lifting and straining. Manner g are within normal limits. Patient prior to this last few days has no new breast symptoms or complaints. [facility] Medical History (Updated 12/17/23 @ 13:40 by Prosper Bains MD) Radiation pneumonitis Pneumonia Chronic cough IBS (irritable bowel syndrome) Migraines Osteopenia Compression fx, thoracic spine Osteoarthritis of fingers of both hands Seropositive rheumatoid arthritis SANDIE positive Surgical History (Updated 02/08/24 @ 12:51 by Goyo Blue MD) Hx of colonoscopy Hx of tonsillectomy Family History Mother HTN (hypertension) Hyperlipidemia Diabetes Arthritis Social History Household Members: None Housing: Condominium Alcohol intake: never Patient Tobacco Use Status: Never used Tobacco Second Hand Smoke Exposure: No service: No Current occupational status: unemployed Physical Exam Vital Signs: Last Vital Signs Pulse 111 H 02/08/24 11:42 BP 170/88 H 02/08/24 11:42 BMI result Body Mass Index 25.0 HEENT Other: No cervical periclavicular or axillary adenopathy bilaterally. Chest Other: Right breast no obvious mass, discharge, adenopathy or skin changes. Benign. Left breast incision clean dry and intact. Patient has what appears to be a seroma under the incision at the 12 o'clock position. Office Procedures Aspiration of Seroma Details: Risks, benefits, alternatives of seroma aspiration were reviewed with the patient and included but not limited to bleeding, infection, recurrence, numbness, pain, scarring and the patient wished to proceed. All questions answered. After appropriate positioning, patient underwent uneventful aspiration of the proximally 20 cc of serous fluid consistent with seroma. Patient tolerated procedure well. Dressing applied. Aspiration of Seroma: 30173 Seroma Aspiration All charges added?: Procedure code (CPT) selection complete Assessment & Plan Assessment & Plan (1) Seroma of breast: Code(s): N64.89 - Other specified disorders of breast Category: Surgical Plan: Patient is encouraged to do self-breast exams periodically. We will see her in 1 year's time for follow-up mammography or p.r.n.. She should avoid strenuous activities next few days to prevent recurrence reverse seroma. Plan See above Orders: Orders AMB Aspiration of Seroma Today N64.89 - Other specified disorders of breast Coding Level of Care Code Est Pt Level 5 (46576) Diagnoses Seroma of breast N64.89 CPT Codes Aspiration of Seroma ([id number])
[2024-02-08 11:42] VITALS: BP 170/88; PULSE 111; BMI 25.0
== END 2024-02-08 12:48 | disposition home or self-care (01) ==
PROVIDERS: PCP Internal Medicine; Visit Provider Surgery
DX: N64.89 Other specified disorders of breast (principal); L76.34 Postprocedural seroma of skin and subcutaneous tissue following other procedure
CPT/HCPCS: 10160; 99214

== ENCOUNTER → 2024-02-08 11:33 | Outpatient (BNVA) | payer MEDICARE, SELFPAY | PROVIDERS: PCP Internal Medicine; Visit Provider Surgery | DX: N64.89 Other specified disorders of breast (principal) | CPT/HCPCS: 10160; 99212 ==

== ENCOUNTER 2024-07-31 12:08 | Outpatient (AMB) | payer MEDICARE, SELFPAY ==
--- NOTE | 2024-07-31 12:47 | AM.OFFWIN_ITS ---
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 Pt c/o nose bleeds. Patient Tobacco Use Status: Never used Tobacco Allergies amoxicillin Allergy (Intermediate, Verified 07/31/24 12:51) Rash latex Allergy (Intermediate, Verified 07/31/24 12:51) Rash PFSH Medical History (Updated 07/31/24 @ 12:49 by Selene Snyder PA-C) Radiation pneumonitis Pneumonia Chronic cough IBS (irritable bowel syndrome) Migraines Osteopenia Compression fx, thoracic spine Osteoarthritis of fingers of both hands Seropositive rheumatoid arthritis SANDIE positive Surgical History Hx of colonoscopy Hx of tonsillectomy Family History Mother HTN (hypertension) Hyperlipidemia Diabetes Arthritis Social History Household Members: None Housing: Condominium Alcohol intake: never Patient Tobacco Use Status: Never used Tobacco Second Hand Smoke Exposure: No service: No Current occupational status: unemployed 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
[2024-07-31 12:49] VITALS: BP 126/82; PULSE 90; RESP 18; TEMP 36.4; O2SAT 96
--- NOTE | 2024-07-31 12:49 | AM.OFFWIN_ITS ---
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 - Bleeding is notably more severe now, c haracterized by bright red blood, and usually incited by a sneeze or gentle nose blowing. - Control measures such as ice applicati on have been attempted with partial success. - No usage of blood thinners, and past h istory includes breast cancer for which she underwent chemotherapy and radiation therapy. - Elevated blood pressure readings have been noted previously by her primary care physician, with no current antihypertensive treatment. Physical Exam General: Cooperative, healthy appearing, comfortable, no acute distress and well developed Orientation: Patient oriented x3 Limitations: No limitations Head: Normal to inspection Ears: Hearing grossly normal bilaterally Nose: right nare, kesselback plexus area, has clotted off area, some residual blood noted in nare, no active bleeding noted. Face and sinus: Normal facial exam Eyes: Appearance normal, both eyes and all related structures Neck: Normal visual inspection and Yes full ROM Respiratory: Normal respiratory effort and able to speak in complete sentences. Skin: No rashes or lesions noted Neuro: Patient oriented x3 Extremities: Normal to inspection [facility] Medical History (Updated 07/31/24 @ 12:49 by Selene Snyder PA-C) Radiation pneumonitis Pneumonia Chronic cough IBS (irritable bowel syndrome) Migraines Osteopenia Compression fx, thoracic spine Osteoarthritis of fingers of both hands Seropositive rheumatoid arthritis SANDIE positive Surgical History Hx of colonoscopy Hx of tonsillectomy Family History Mother HTN (hypertension) Hyperlipidemia Diabetes Arthritis Social History Household Members: None Housing: Condominium Alcohol intake: never Patient Tobacco Use Status: Never used Tobacco Second Hand Smoke Exposure: No service: No Current occupational status: unemployed Review of Systems Const All systems reviewed & are unremarkable except as noted in HPI and below Assessment & Plan Assessment & Plan (1) Anterior epistaxis: Code(s): R04.0 - Epistaxis Plan: VSS, pt well appearing, bleeding controlled with manual pressure intervention. PE reveals clotted off area in right anterior nare. Educated patient on anterior versus posterior bleeds, explained this appears to be anterior, thus less life- threatening. The patient's recurrent epistaxis will initially be managed with local measures, including maintaining nasal moisture with saline sprays and using Aquaphor oint ment to protect the mucosa. Exacerbating factors, such as nasal trauma or manipulation, should be avoided. If bleeding resumes, nasal packing or cauterization with silver nitrate may be required. Her previous elevated blood pressure readings suggest monitoring, though pharmacological intervention is not advised at this moment due to patient preferences of natural-dale post-cancer treatment. Further assessment or referral to an security expert may be necessary if significant epistaxis persists. The patient was counseled on these management strategies and demonstrated understanding and agreement with the approach. Patient was informed and verbally consented to the use of an ambient scribe for clinic note documentation during this visit. Coding Level of Care Code New Pt Level 3 (40553) Diagnoses Anterior epistaxis R04.0
== END 2024-07-31 13:00 | disposition home or self-care (01) ==
PROVIDERS: PCP Internal Medicine; Visit Provider Physician Assistant
DX: R04.0 Epistaxis (principal)

== ENCOUNTER → 2024-07-31 12:08 | Outpatient (BNVA) | payer MEDICARE, SELFPAY | PROVIDERS: PCP Internal Medicine; Visit Provider Physician Assistant | DX: R04.0 Epistaxis (principal) | CPT/HCPCS: 99202 ==

== ENCOUNTER 2024-10-26 14:21 | Outpatient (AMB) | payer MEDICARE, SELFPAY ==
--- NOTE | 2024-10-26 14:29 | MHC.OFFVIS ---
Vital Signs 10/26/24 14:32 Height 5 ft 2.5 in Weight 141 lb 6 oz BMI 25.4 BP 140/85 H Blood Pressure Location Lt brachial Position Sitting Pulse 120 H Intake Visit Reasons: Lump on left breast Intake Note: Patient is seen in office for a lump on the left breast. 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 Blue presenting for evaluation of a left breast lump. She has a previous history of a left breast lump in his status post ultrasound-guided core biopsy on 07/30/2022, found to have an infiltrating ductal carcinoma, grade 3, with DCIS, grade 2, triple negative. She was referred to Medical Oncology (Dr. Bains) and subsequently underwent neoadjuvant chemotherapy including carboplatin him, Taxol and pembrolizumab for 4 cycles followed by pembrolizumab times 10 cycles. She then underwent a lumpectomy with localizer and sentinel node biopsy on 04/15/2023. Pathology confirmed an infiltrating ductal carcinoma, grade 3 measuring 4 mm with DCIS, grade 2 both with negative margins. 0 of 2 sentinel nodes revealed metastatic disease (stage yp T1 a, N0 (sn) (i-)). She completed radiation therapy but then developed a cough post therapy which resolved after a course of steroids. Her most recent mammogram of 01/20/2024 revealed no mammographic evidence of malignancy (BI-RADS 2). She felt the lump on self-examination located above her previous surgery site is uncertain if this is a new lump or fluid from the previous surgery. [facility] Medical History Radiation pneumonitis Pneumonia Chronic cough IBS (irritable bowel syndrome) Migraines Osteopenia Compression fx, thoracic spine Osteoarthritis of fingers of both hands Seropositive rheumatoid arthritis SANDIE positive Surgical History Hx of colonoscopy Hx of tonsillectomy Family History Mother HTN (hypertension) Hyperlipidemia Diabetes Arthritis Social History Household Members: None Housing: Condominium Alcohol intake: never Patient Tobacco Use Status: Never used Tobacco Second Hand Smoke Exposure: No service: No Current occupational status: unemployed Review of Systems Const All systems reviewed & are unremarkable except as noted in HPI and below Physical Exam Const General: no acute distress Nutritional Appearance: well nourished Orientation/consciousness: patient oriented x3 Chest Chest/axillae images:  1. Incision upper outer quadrant left breast 2. Seroma 3. Palpable lump upper outer quadrant measuring approximately 2 cm in diameter. Resp Effort & Inspection: normal respiratory effort Skin Other: Warm, dry, no rash Neuro General: patient oriented x3 Assessment & Plan Assessment & Plan (1) Triple negative breast cancer: Code(s): C50.919 - Malignant neoplasm of unspecified site of unspecified female breast Category: Surgical (2) Status post breast lumpectomy: Code(s): Z98.890 - Other specified postprocedural states Category: Surgical Plan Patient with a prior history of triple negative infiltrating ductal carcinoma of the left breast now presenting with a new lump located slightly superior to the previous lumpectomy site. This appears thickened and separate from the prior seroma. This may be scar tissue from the previous surgery or secondary to radiation therapy however I would prefer to obtain a diagnostic mammogram with ultrasound better evaluate this location given her prior history. She will return following the study to review the results. Orders: Orders MM diagnostic mammo BI Today C50.919 - Malignant neoplasm of unspecified site of unspecified female breast, N63.20 - Unspecified lump in the left breast, unspecified quadrant, Z98.890 - Other specified postprocedural states US breast LT limited Today C50.919 - Malignant neoplasm of unspecified site of unspecified female breast, N63.20 - Unspecified lump in the left breast, unspecified quadrant, Z98.890 - Other specified postprocedural states Coding Level of Care Code Est Pt Level 3 (50301) Diagnoses Triple negative breast cancer C50.919 Status post breast lumpectomy Z98.890
[2024-10-26 14:32] VITALS: BP 140/85; PULSE 120; BMI 25.4
--- OUTSIDE RECORDS SUMMARY | 2024-10-26 15:37 | XMS_ITS | Patient Health Record ---
Author Organization [facility] Address [address] [place] [address] Care Team Providers Care Multiple Launch Rocket System Crewmember Name Role Phone Glenna HEATON, Jeffrey Primary Care Provider Unavailabl e Augusto, Oriana Unavailable [phone] Reason For Referral No Information Plan Of Treatment No Information Insurance Providers Payer Name Payer Address Payer Phone Subscriber Number Group Number Insured Name Patient Relationship to Insured Coverage Start Date Coverage End Date Medicare National [employer]t [employer] [address] [place] [address] Aurora Stevenson Self - patient is the insured
== END 2024-10-26 14:48 | disposition home or self-care (01) ==
LOC: HO.HGS 14:21
PROVIDERS: PCP Internal Medicine; Visit Provider Surgery
DX: C50.919 Malignant neoplasm of unspecified site of unspecified female breast (principal); Z98.890 Other specified postprocedural states
CPT/HCPCS: 99213

== ENCOUNTER → 2024-10-26 14:21 | Outpatient (BNVA) | payer MEDICARE, SELFPAY | PROVIDERS: PCP Internal Medicine; Visit Provider Surgery | DX: N63.21 Unspecified lump in the left breast, upper outer quadrant (principal); C50.412 Malignant neoplasm of upper-outer quadrant of left female breast; Z98.890 Other specified postprocedural states | CPT/HCPCS: 99212 ==

== ENCOUNTER 2024-11-23 13:11 | Outpatient (REF) | payer MEDICARE, SELFPAY ==
--- NOTE | ~2024-11-23 | MM_ITS ---
EXAMINATION: MM DIAGNOSTIC DIGITAL BREAST TOMOSYNTHESIS, BILATERAL Limited left breast ultrasound. CLINICAL INFORMATION: History of triple negative left breast cancer in 2022 status post lumpectomy. Patient has a new left breast palpable lump. COMPARISON: Mammography: Comparison is made with relevant prior exams. TECHNIQUE: Digital breast mammography with tomosynthesis is performed in both the craniocaudal and mediolateral oblique views along with computer-aided detection (CAD). FINDINGS: The breasts are heterogeneously dense, which may obscure small masses (ACR BI-RADS breast composition Category c). Right: There are no significant masses, abnormal calcifications, or other abnormalities. Left: Post lumpectomy changes in the upper central breast are stable. BB marker in the upper central breast in the area the post lumpectomy bed without underlying abnormal finding. No suspicious calcifications masses or other abnormal findings. Targeted color Doppler ultrasound scanning in the left breast area of patient's palpable lump from 11-2:00 demonstrates a hypoechoic oval circumscribed complicated cysts with intervening septations which are avascular. These findings most likely represent a post operative seroma. There is no internal vascular flow. The complicated cyst/postoperative seroma measures 34 x 53 x 48 mm. Results are discussed with the patient at time of visit. MM/MM tomosynthesis diagnostic BI IMPRESSION: Right: Negative. Left: Post lumpectomy changes are benign. Probable postoperative seroma/complicated cyst at 12:00 4 7 m from the nipple correlating with the patient's palpable lump and post lumpectomy surgical site. Recommend 6 month follow-up for further evaluation of stability. ASSESSMENT: BI-RADS BI-RADS 3 - Probably benign finding(s) - 6 month follow-up suggested RECOMMENDATION: 6 Month F/U This patient's information was entered into a reminder system with a target due date for their next mammogram. Electronically signed by: Nuzhat Phillips DO 11/23/2024 03:08 PM EDT
--- OUTSIDE RECORDS SUMMARY | 2024-11-23 13:40 | XMS_ITS | Patient Health Record ---
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 Name Role Phone Jeffrey Manzanares MD Primary Care Provider Arcenio Romero [phone] Allergies Allergen (clinical drug ingredient) Drug/Non Drug Allergy documented on EMR Reaction Allergy Type Onset Date Status amoxicillin Amoxicillin Unknown Drug Allergy Act gallito Reason For Referral No Information Medications Medication SIG (Take, Route, Frequency, Duration) Notes Start Date End Date Status buPROPion HCl ER (SR) 100 MG Oral for 30 Active LORazepam 0.5 MG Oral for 8 Ac tive Immunizations Vaccine Route Administration Date Status Comme nts Influenza Unknown 03/10/2021 Administered Problems Problem Type SNOMED Code ICD Code Onset Dates Problem Status W/U Status Risk Notes Problem Colon cancer screening (394299311) Colon cancer screening (Z12.11) Active confirmed Problem 244152531 Encounter for screening for malignant neoplasm of colon (Z12.11) Active confirmed Problem History of adenomatous polyp of colon (529502597) History of adenomatous polyp of colon (Z86.010) Active confirmed Problem Screening for malignant neoplasm of rectum (476229006) Encounter for screening for malignant neoplasm of rectum (Z12.12) Active confirmed Problem Preprocedural examination (012744101825422) Preprocedural examination (Z01.818) Active confirmed Problem History of colon polyps (Z86.010) Active confirmed Problem 67437131 Constipation, unspecified constipation type (K59.00) Active confirmed Problem 62924145 Diarrhea, unspecified type (R19.7) Active confirmed Problem 14941617 Irritable bowel syndrome, unspecified type (K58.9) Active confirmed Plan Of Treatment Pending Test Test Name Order Date CRP 02/26/2017 CBC with MANUAL DIFFERENTIAL 02/26/2017 SED RATE (ESR) 02/26/2017 CLOSTRIDIUM DIFF TOXIN A&B (C DIFF) 02/08 STOOL WBC 02/26/2017 CELIAC PANEL #10 02/26/2017 GIARDIA AG, STOOL EIA 02/26/2017 OVA & PARASITES (O&P) 02/26/2017 CULTURE, STOOL 02/26/2017 Future Test Test Name Order Date COLONOSCOPY 12/18/2015 COLONOSCOPY 01/20/2022 Insurance Providers Payer Name Payer Address Payer Phone Subscriber Number Group Number Insured Name Patient Relationship to Insured Coverage Start Date Coverage End Date [facility] [address] [place], [place] [id number] IVANNA STEVENSON Self - patient is the insured Medical (General) History Medical History History ICD Code Migraines Denies [place],DM,CVA,Lung disease,renal dise ase IBS-neg. labs for celiac disease in [address] of abdomen in 11/2015 Screening colonoscopy 03/2016 with a sma ll tubular adenoma Surgical History Surgery Date(Month/Year) Tonsillectomy at age 34
--- OUTSIDE RECORDS SUMMARY | 2024-11-23 13:40 | XMS_ITS | Patient Health Record ---
Author Organization [facility] Address [address] [place] [address] Care Team Providers Care Sfdc Consultant Name Role Phone Glenna HEATON, Jeffrey Primary Care Provider Unavailabl e Augusto, Oriana Unavailable [phone] Reason For Referral No Information Plan Of Treatment No Information Insurance Providers Payer Name Payer Address Payer Phone Subscriber Number Group Number Insured Name Patient Relationship to Insured Coverage Start Date Coverage End Date Medicare National Govt Sv[employer] [address] [place] [address] Aurora Stevenson Self - patient is the insured
== END 2024-11-23 13:12 | disposition home or self-care (01) ==
LOC: HO.MAMMO 13:11
PROVIDERS: PCP Internal Medicine; Visit Provider Surgery
DX: N63.21 Unspecified lump in the left breast, upper outer quadrant (principal); Z98.890 Other specified postprocedural states; Z85.3 Personal history of malignant neoplasm of breast
CPT/HCPCS: 76642; 77062; 77066

== ENCOUNTER → 2024-11-23 14:00 | Outpatient (BNV) | payer MEDICARE, SELFPAY | PROVIDERS: PCP Internal Medicine; Visit Provider Internal Medicine | DX: N63.20 Unspecified lump in the left breast, unspecified quadrant (principal) | CPT/HCPCS: 76642; 77066; G0279 ==

== ENCOUNTER 2024-12-14 12:41 | Outpatient (AMB) | payer MEDICARE, SELFPAY ==
--- OUTSIDE RECORDS SUMMARY | 2024-12-14 12:43 | XMS_ITS | Patient Health Record ---
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 Name Role Phone Jeffrey Manzanares MD Primary Care Provider Arcenio Romero [phone] Allergies Allergen (clinical drug ingredient) Drug/Non Drug [...] Status Risk Notes Problem Colon cancer screening (387411315) Colon cancer screening (Z12.11) Active confirmed Problem 357316312 Encounter for screening for malignant neoplasm of colon (Z12.11) Active confirmed Problem History of adenomatous polyp of colon (080607783) History of adenomatous polyp of colon (Z86.010) Active confirmed Problem Screening for malignant neoplasm of rectum (347697140) Encounter for screening for malignant neoplasm of rectum (Z12.12) Active confirmed Problem Preprocedural examination (226115852321979) Preprocedural examination (Z01.818) Active confirmed Problem History of colon polyps (Z86.010) Active confirmed Problem 60491273 Constipation, unspecified constipation type (K59.00) Active confirmed Problem 16127510 Diarrhea, unspecified type (R19.7) Active confirmed Problem 81809767 Irritable bowel syndrome, unspecified type (K58.9) Active [...] Insured Coverage Start Date Coverage End Date [facility] [address] [place], [place] [id number] [phone] [id number] IVANNA STEVENSON Self - patient is the insured Medical (General) History Medical History History ICD Code Migraines Denies [place],DM,CVA,Lung disease,renal dise ase IBS-neg. labs for celiac disease in [address] of abdomen in 11/2015 Screening colonoscopy 03/2016 with a sma ll tubular adenoma Surgical History Surgery Date(Month/Year) Tonsillectomy at age 34
--- OUTSIDE RECORDS SUMMARY | 2024-12-14 12:43 | XMS_ITS | Clinical Summary ---
Author Organization [facility] Address [address] [facility] [address] [place] [phone] Phone Care Team Providers Care Spring Winder Name Role Phone Kris Galaviz MD Unavailable Jeffrey Manzanares MD Primary Care Provider [phone] Allergies Active Allergy Reactions Criticality Noted Date Comments Amoxicillin Rash Low 07/22/2017 Medications cholecalciferol (VITAMIN D3) 1,000 unit tablet 1 tablet Active acetaminophen (TYLENOL) 500 MG tablet Take 500 mg by mouth daily as needed for pain (specific location in comments). Active butalbital-acetami nophen-caffeine (FIORICET, ESGIC) 50-325-40 mg per tablet Take 1 tablet by mouth daily as needed (for tension h/a). 10 tablet 01/20/20 18 Active Additional Information Patient not taking.Reported on 09/16/2022 buPROPion (WELLBUTRIN SR) 100 MG SR 12 hr tablet TAKE 1/2 OF A TABLET BY MOUTH DAILY FOR 30 DAYS 07/07/19 23 Active dexAMETHasone (DECADRON) 4 MG tablet TAKE 1 TABLET BY MOUTH TWICE A DAY, ON DAYS 2 AND 3 OF CHEMOTHERAPY, EVERY 3 WEEKS. 08/22/19 23 Active HYDROcodone-acetam inophen (NORCO) 5-325 mg per tablet TAKE 1 TABLET BYMOUTH EVERY 4-6 HOURS NEEDED FOR PAIN 09/07/19 23 Active LORazepam (ATIVAN) 0.5 MG tablet Take 0.5 mg by mouth 3 (three) times a day as needed. 07/07/19 23 Active ondansetron (ZOFRAN-ODT) 8 MG disintegrating tablet Take 8 mg by mouth every 8 (eight) hours. 08/21/19 23 Active Active Problems Patient Care Coordination No te Formatting of this note migh t be different from the original. Height 161.3 cm taken by RB on 09/16/2022 Problem Noted Date Diagnosed Date Malignant neoplasm of upper- inner quadrant of left breast in female, estrogen receptor negative 07/07/2023 Anxiety 07/22/2017 Depression 07/22/2017 Imbalance 07/22/2017 Insomnia 07/22/2017 Numbness of foot 07/22/2017 Bilateral hand numbness 07/22/2017 Osteopenia 07/22/2017 Vertigo 07/22/2017 Right subscapular pain 07/22/2017 Assessment & Plan (07/22/2017 1:03 PM EDT): She agrees to trial a course of PT. Trial 400-600 mg tabs ibuprofen with food q6-8 hours as needed for pain. Encouraged continued exercise, stretching, and good body mechanics. Suggested focused massage to the area. Consider referral to back specialist For possible trigger injections if sx persist. Immunizations Immunization Administration Dates Next Due Hepatitis B Adult 02/07/2005 INFLUENZA, SPLIT VIRUS, TRIV ALENT W/ PRESERVATIVE IM 03/24/2022,03/10/2021,02/09/2011 Influenza Quadrivalent Adjuv anted Preservative Free IM 04/01/2021 Influenza Recombinant Angi valent Preservative Free IM 06/13/2020 Influenza, Unspecified Formulation 02/15/2008 Influenza, whole 06/13/2020 PPD Test 02/19/2017, 6,02/25/2015,2013,02/06/2013,02/08/2012,02/09/2011,1 ,03/11/2009 Td, unspecified formulation 07/04/2019 Tdap 11/29/2009 Social History Tobacco Use Types Packs/Day Years Used Date Smoking Tobacco: Never Smokeless Tobacco: Never Tobacco Cessation:Counseling Given: Not Answered Alcohol Use Standard Drinks/Week Comments No 0 (1 standard drink = 0.6 oz pur e alcohol) Education Answer Date Recorded Are you interested in more education? Not on laura e 09/03/2022 Are you concerned about learning? Not on file 09/03/2022 No 09/03/2022 No 09/03/2022 Digital Access Answer Date Recorded No 10/04/2022 No 10/04/2022 Reliable internet access at home? Not on file 10/04/2022 Device with a working camera? Not on file Comments Unknown Sex and Gender Information Value Date Recorded Sex Assigned at Not on file Legal Sex Female 9:55 PM EDT Gender Identity Not on file Sexual Orientation Not on file Last Filed Vital Signs Vital Sign Reading Time Taken Comments Blood Pressure 137/79 12/31/2023 1:53 PM EDT Pulse 114 12/31/2023 1:53 PM EDT Temperature 36.6 C (97.9 F) 07/29/2023 1:44 PM EDT Respiratory Rate 18 07/29/2023 1:44 PM EDT Oxygen Saturation 99% 12/31/2023 1:53 PM EDT Inhaled Oxygen Concentration - - Weight 62.5 kg (137 lb 12.8 oz) 12/31/2023 1:53 PM EDT Height 161.3 cm (5' 3.5 ) 09/16/2022 10 :36 AM EDT Body Mass Index 24.02 09/16/2022 10:36 AM EDT Plan of Treatment Health Maintenance Due Date Last Done Comments HEPATITIS C SCREENING 08/23/1973 PNEUMOCOCCAL VACCINES (50+ years) (1 of 2 - PCV) 08/23/1974 ZOSTER VACCINES (1 of 2) 08/23/1974 COLOGUARD 08/23/2000 FIT TEST 08/23/2000 FOBT 08/23/2000 SIGMOIDOSCOPY 08/23/2000 VIRTUAL COLONOSCOPY 08/23/2000 DEPRESSION SCREENING 07/22/2018 07/22/2017 LIPID PANEL 02/26/2020 02/25/2015 COVID-19 VACCINE ( season) 2024 MAMMOGRAM 08/14/2024 08/14/2022, 07/09, 07/30/2022, Additional history exists COLONOSCOPY 03/20/2026 03/20/2016 COLORECTAL CANCER SCREENING 03/20/2026 Adult Td,Tdap Booster 07/04/2029 07/04/2019, 010 RSV VACCINE (1 - 1-dose 75+ series) 08/23/2030 OSTEOPOROSIS SCREENING INITIAL (ONE-TIME) Completed 11/03/2017 SMOKING STATUS SCREENING (Once After 26 Yrs) Completed 07/27/2023 HEPATITIS A VACCINES Aged Out No long er eligible based on patient's age to complete this topic HIB VACCINES Aged Out No longer eligi ble based on patient's age to complete this topic MENINGOCOCCAL VACCINES (ACWY) Aged Out No longer eligible based on patient's age to complete this topic MENINGOCOCCAL VACCINES (B) Aged Out N o longer eligible based on patient's age to complete this topic Medical Devices Not on file Procedures Procedure Name Priority Date/Time Associated Diagnosis Comments BI MRI BREAST OUTSIDE (NO INTERPRETATION) Routine 08/14/2022 12:00 AM EDT BD DXA MONITORING Routine 11/03/2017 11: 40 AM EDT Osteopenia, unspecified location OUTSIDE LDL Routine 02/25/2015 from Last 3 Months or Most Recently Relevant to Health Maintenance Results * MRI Breast Outside (No Interpretation) (08/14/2022 12:00 AM EDT) Narrative SYSTEMGENERATED, DOCUMENTATION - 09/04/2022 3:15 PM EDT This study is for PACS storage only and not for interpretation. us Unknown Unknown IMG OUTSIDE IMAGING W/OUT INT ERPRETATION Final Result * DXA Monitoring (11/03/2017 11:40 AM EDT) Anatomical Region Laterality Modality Bone Density Bone Density us Mikael Portillo MD IMG BD BONE DENSITY DEXA Rylie l Result * Outside LDL (02/25/2015) LDL - External 134 50 - 250 mg/ml Historical Provider LAB BLOOD ORDERABLES Rylie l Result from Last 3 Months or Most Recently Relevant to Health Maintenance Insurance [place] BLUE REPLACEMENT MEDICARE PART A & B [facility] MEDICARE PPO BLUE REPLACEMENT MEDICARE PART A & B [facility] MEDICARE PPO BLUE REPLACEMENT MEDICARE PART A & B [facility] MEDICARE PPO BLUE REPLACEMENT MEDICARE PART A & B Member Subscriber Plan / Payer (Ef fective 2020-Present) Name:Aurora Stevenson Member ID:[id number] Relation to Subscriber:Self Name:Aurora Stevenson Subscriber ID:[id number] Payer ID:[id number] Group ID:Not on file Type:Medicare Address: [employer] [address] [place] [address] [place] [address] MEDICARE PPO BLUE REPLACEMENT MEDICARE PART A & B [facility] MEDICARE PPO BLUE REPLACEMENT MEDICARE PART A & B Care Teams Spring Winder Relationship Specialty Start Date End Date Jeffrey Manzanares MD [address] [place] [id number] PCP - General Internal Medicine 06/11/23 Kris Galaviz MD [address] [place] [address] Primary Oncologist Hematology and Oncology 09/03/22 Additional Source Comments The information contained in this document represents components of the legal health record. It is not the complete legal health record.[facility]
--- OUTSIDE RECORDS SUMMARY | 2024-12-14 12:43 | XMS_ITS | Patient Health Record ---
Author Organization [facility] Address [address] [place] [address] Care Team Providers Care Hot Dog Vendor Name Role Phone Glenna HEATON, Jeffrey Primary Care Provider Unavailabl e Augusto, Oriana Unavailable [phone] Reason For Referral No Information Plan Of Treatment No Information Insurance Providers Payer Name Payer Address Payer Phone Subscriber Number Group Number Insured Name Patient Relationship to Insured Coverage Start Date Coverage End Date Medicare [employer] [address] [facility] [place] [address] Aurora Stevenson Self - patient is the insured
[2024-12-14 12:59] VITALS: BP 150/78; PULSE 94; TEMP 36.8; O2SAT 97; BMI 25.2
--- NOTE | 2024-12-14 12:59 | AM.OFFWIN_ITS ---
Intake Vital Signs 12/14/24 12:59 Height 5 ft 2.5 in Weight 140 lb BMI 25.2 BP 150/78 H Blood Pressure Location Lt brachial Position Sitting Pulse 94 Pulse Source Pulse Oximeter Temp 98.3 F Temp Source Oral Pulse Oximetry (%) 97 Oxygen Delivery Method Room Air Intake Visit Reasons: High bp Intake Note: presents with concerns for high blood pressure- wrist cuff OTC. c/o increased fatigue, ankle swelling, heart pounds some nights, still experiencing ocassional bloody nose Patient Tobacco Use Status: Never used Tobacco Allergies amoxicillin Allergy (Intermediate, Verified 12/14/24 13:01) Rash latex Allergy (Intermediate, Verified 12/14/24 13:01) Rash Do you need a note to return to daycare/school/sports/work: No HPI HPI Comments History of Present Illness Details 69 y/o Female patient who presents to [facility] walk in clinic with concerns for elevated B/P readings at home. She does check her B/P with Wrist/Cuff Device, and has noticed Systolic B/P's > 200's and Diastolic B/P's > 100's. Reports Fatigue, Ankle swelling and Palpitations. She did see her PCP (@ [facility]) few weeks ago - but B/P at the visit that day was Normal, so Treatment was not started. She lost her mother few months ago, she is under tremoundous stress due to this. [facility] Medical History (Updated 12/14/24 @ 13:20 by Pao Tijerina NP) Essential hypertension Radiation pneumonitis Pneumonia Chronic cough IBS (irritable bowel syndrome) Migraines Osteopenia Compression fx, thoracic spine Osteoarthritis of fingers of both hands Seropositive rheumatoid arthritis SANDIE positive Surgical History Hx of colonoscopy Hx of tonsillectomy Family History Mother HTN (hypertension) Hyperlipidemia Diabetes Arthritis Social History Household Members: None Housing: Condominium Alcohol intake: never Patient Tobacco Use Status: Never used Tobacco Second Hand Smoke Exposure: No service: No Current occupational status: unemployed Review of Systems Const All systems reviewed & are unremarkable except as noted in HPI and below Physical Exam Vital Signs: Last Vital Signs Temp 98.3 F 12/14/24 12:59 Pulse 94 12/14/24 12:59 BP 150/78 H 12/14/24 12:59 Pulse Ox 97 12/14/24 12:59 Oxygen Delivery Method Room Air 12/14/24 12:59 BMI result Body Mass Index 25.2 Const General: no acute distress Nutritional Appearance: well nourished Orientation/consciousness: patient oriented x3 Resp Effort & Inspection: normal respiratory effort Auscultation: clear to auscultation bilaterally Cardio Heart sounds: S1 normal heart sound present and S2 normal heart sound present Neuro General: patient oriented x3, gait normal and moves all extremities Extrem Right lower extremity: ankle Details: tenderness Location: of the lateral malleolus and of the medial malleolus, edema Details: pitting and 2+ and normal ROM; no crepitus Left lower extremity: ankle Details: tenderness, pitting edema Details: pitting and 2+ and normal ROM; no crepitus Psych Speech and movement: Normal speech and movement present Assessment & Plan Assessment & Plan (1) Essential hypertension: Code(s): I10 - Essential (primary) hypertension Plan: Started Low Dose HCTZ 12.5 mg Advised to use Upper Arm Cuff Device for B/P monitoring. She is to keep a Log. Avoid High Sodium foods and Hydrate well Avoid Stress. F/U with PCP within 1 week. Medications: New hydrochlorothiazide 12.5 mg PO DAILY 30 caps 0RF I10 - Essential (primary) hypertension Coding Level of Care Code Est Pt Level 4 (44161) Diagnoses Essential hypertension I10 Time Spent (min) 20
== END 2024-12-14 13:34 | disposition home or self-care (01) ==
PROVIDERS: PCP Internal Medicine; Visit Provider Nurse Practitioner Family
DX: I10 Essential (primary) hypertension (principal)

== ENCOUNTER → 2024-12-14 12:41 | Outpatient (BNVA) | payer MEDICARE, SELFPAY | PROVIDERS: PCP Internal Medicine; Visit Provider Nurse Practitioner Family | DX: I10 Essential (primary) hypertension (principal); R53.83 Other fatigue; R00.2 Palpitations; M25.473 Effusion, unspecified ankle; Z63.4 Disappearance and death of family member | CPT/HCPCS: 99212 ==

== ENCOUNTER 2024-12-19 20:16 | Emergency (ER) | payer MEDICARE, SELFPAY ==
--- NOTE | ~2024-12-19 | XR_ITS ---
CLINICAL HISTORY: weakness 2 view chest x-ray Comparison: CT/UT/SR - CT CHEST WITHOUT IV CONTRAST - 12/09/23 13:23 EDT Findings: The lungs exhibit chronic regions of scarring. Normal size heart. Right-sided chest port noted. No acute fracture. IMPRESSION: 1. No acute findings. This document has been electronically signed by: John Cardoza MD on 12/19/2024 22:30:19
[2024-12-19 20:25] VITALS: BP 164/76; PULSE 103; RESP 18; TEMP 36.7; O2SAT 98; BMI 24.8
--- OUTSIDE RECORDS SUMMARY | 2024-12-19 20:38 | XMS_ITS | Patient Health Record ---
Author Organization [facility] Address [address] [place] [id number] Care Team Providers Care Manager Environmental Health And Safety Name Role Phone Jeffrey Manzanares MD Primary Care Provider Arcenio Romero [phone] Allergies Allergen (clinical drug ingredient) Drug/Non Drug [...] Status Risk Notes Problem Colon cancer screening (240120881) Colon cancer screening (Z12.11) Active confirmed Problem 288766310 Encounter for screening for malignant neoplasm of colon (Z12.11) Active confirmed Problem History of adenomatous polyp of colon (038686282) History of adenomatous polyp of colon (Z86.010) Active confirmed Problem Screening for malignant neoplasm of rectum (824771586) Encounter for screening for malignant neoplasm of rectum (Z12.12) Active confirmed Problem Preprocedural examination (213616144924878) Preprocedural examination (Z01.818) Active confirmed Problem History of colon polyps (Z86.010) Active confirmed Problem 09033273 Constipation, unspecified constipation type (K59.00) Active confirmed Problem 14688081 Diarrhea, unspecified type (R19.7) Active confirmed Problem 48937393 Irritable bowel syndrome, unspecified type (K58.9) Active [...] Insured Coverage Start Date Coverage End Date [facility] [address] [place], [place] [id number] [phone] [id number] IVANNA STEVENSON Self - patient is the insured Medical (General) History Medical History History ICD Code Migraines Denies OK,DM,CVA,Lung disease,renal dise ase IBS-neg. labs for celiac disease in [address] of abdomen in 11/2015 Screening colonoscopy 03/2016 with a sma ll tubular adenoma Surgical History Surgery Date(Month/Year) Tonsillectomy at age 34
--- OUTSIDE RECORDS SUMMARY | 2024-12-19 20:38 | XMS_ITS | Clinical Summary ---
Author Organization [facility] Address [address] [facility] [address] [place] [phone] Phone Care Team Providers Care Plasma Center Technician Name Role Phone Kris Galaviz MD Unavailable Jeffrey Manzanares MD Primary Care Provider [phone] Allergies Active Allergy Reactions Criticality Noted Date [...] BLUE REPLACEMENT MEDICARE PART A & B [facility] MEDICARE PPO BLUE REPLACEMENT MEDICARE PART A & B [facility] MEDICARE PPO BLUE REPLACEMENT MEDICARE PART A & B [facility] MEDICARE PPO BLUE REPLACEMENT MEDICARE PART A [place] [address] [place] [address] MEDICARE PPO BLUE REPLACEMENT MEDICARE PART A & B [facility] MEDICARE PPO BLUE REPLACEMENT MEDICARE PART A & B Care Teams Plasma Center Technician Relationship Specialty Start Date End Date Jeffrey Manzanares MD [address] [place] [phone] PCP - General Internal Medicine 06/11/23 Kris Galaviz MD [address] [place] [address] Primary Oncologist Hematology and Oncology 09/03/22 Additional Source Comments The information contained in this document represents components of the legal health record. It is not the complete legal health record.[facility]
[2024-12-19 20:40] LABS: MANUAL DIFF FLAG NO
[2024-12-19 20:41] LABS: Hematocrit 42.7 % (37.0-47.0); Hemoglobin 14.8 g/dl (12.0-16.0); Imm Gran Abs Auto 0.01 X10*3/uL (0.00-0.03); Imm Gran Pct Auto 0.1 % (0.0-0.4); Lymphocytes Absolute Auto 3.3 X10*3/uL (1.2-4.9); Mean Corpuscular HGB Conc 34.7 g/dl (31.0-35.0); Mean Corpuscular Hemoglobin 29.9 pg (27.0-33.0); Mean Corpuscular Volume 86.3 fL (80.0-98.0); NRBC Abs Auto 0.000 X10*3/uL (0.0-0.012); NRBC Pct Auto 0.0 /100WBC (0.0-0.2); Platelet Count 232 X10*3/uL (160-400); Red Blood Count 4.95 X10*6/uL (4.20-5.50); White Blood Count 7.5 X10*3/uL (4.8-10.8)
--- NOTE | 2024-12-19 20:50 | PC.NURSE ---
Pt here w/ multiple c/o's ocurring over the past 1mo. Pt c/o generalized weakness, chronic fatigue, and intermittent dizziness. Pt states last she took her bp at home and found it extrmemely high @ 200/palp. Pt proceeded to go to Urgent Care where they started her on hztz; which she has been taking over the past 3 days. Pt also endorses intermittent nosebleeds during this time as well. Pt here because she states her bp is still high and shes still suffering from chronic fatigue
[2024-12-19 20:54] LABS: Alanine Aminotransferase 17 U/L (0-31); Albumin Level 4.6 g/dL (3.5-5.0); Alkaline Phosphatase 78 U/L (39-117); Anion Gap 17 (12-20); Aspartate Amino Transferase 28 U/L (5-31); Blood Urea Nitrogen 18 mg/dL (9-16); Calcium 9.2 mg/dL (8.4-10.2); Carbon Dioxide 27 mmol/L (22-29); Chloride 100 mmol/L (96-108); Creatinine Clr Calc Pharmacy 47.2; Estimated Glomerular Filt Rate 54; Potassium 3.6 mmol/L (3.3-5.1); Sodium 140 mmol/L (135-145); Total Protein 7.6 g/dL (6.5-8.0)
--- NOTE | 2024-12-19 20:59 | ED_ITS ---
HPI - General Adult General Chief complaint: General Medical Stated complaint: HBP/swollen ankles/nose bleeds Time Seen by Provider: 12/19/24 20:59 Source: patient Mode of arrival: ambulatory Limitations: no limitations History of Present Illness ED Provider: Dr. Gali Robbins HPI narrative: 69-year-old female with a history breast cancer status post lumpectomy, chemo and radiation, rheumatoid arthritis not currently on medications presenting with elevated blood pressures measured at home and at her primary care doctor's office. States that she has been dealing with fatigue, leg swelling, hot flashes off and on over the last several months. Admits that she was feeling particularly tired and decided to check her blood pressure. Noted it at home to be 230/190. Went to an urgent care that day and had a blood pressure of 150's/90's and was started on HCTZ. Saw her primary care doctor on Wednesday in her blood pressure in the office was still elevated. Tonight she was told to come to the emergency department if she continued to feel unwell. Describes feeling generally fatigued to the point where she is unable to even get in the shower at times. Also describes feeling hot but denies a measured temperature. Denies chest pain, difficulty breathing, nausea or vomiting, bowel changes or urinary complaints. No changes in her chronic lower extremity swelling. No reported unexplained weight loss or tremors. Of note, she is dealing with a lot of stress lately with the of her mother a couple of months ago and dealing with her estate. Admits that this has been stressing her out lately. Related Data Home Medications ?Medication ?Instructions ?Recorded ?Confirmed cholecalciferol (vitamin D3) 25 25 mcg PO DAILY 10/26/24 mcg (1,000 unit) capsule lorazepam 0.5 mg tablet 0.5 mg PO TID PRN anxiety 10/26/24 multivitamin (Daily Multi-Vitamin 1 tab PO DAILY 12/14 tablet) Previous Rx's ?Medication ?Instructions ?Recorded hydrochlorothiazide 12.5 mg capsule 12.5 mg PO DAILY # 30 caps 12/14/24 lisinopril 10 mg tablet 10 mg PO DAILY #30 tabs 12/08 07/04 Allergies Allergy/AdvReac Type Severity Reaction Status Date / Time amoxicillin Allergy Intermediate Rash Verified 12/19/24 20:29 latex Allergy Intermediate Rash Verified 12/19/24 20:29 Review of Systems 2 Review of Systems: As per HPI, full review of systems performed and negative but for the above mentioned pertinent positives and negatives. [facility] Past Medical History Attestation statement: The following information was validated with the patient. [facility] Narrative: Breast cancer, RA Source: old records reviewed Medical History (Updated 12/19/24 @ 23:46 by Gali Robbins DO) Essential hypertension Radiation pneumonitis Pneumonia Chronic cough IBS (irritable bowel syndrome) Migraines Osteopenia Compression fx, thoracic spine Osteoarthritis of fingers of both hands Seropositive rheumatoid arthritis SANDIE positive Surgical History Hx of colonoscopy Hx of tonsillectomy Family History Family History Mother HTN (hypertension) Hyperlipidemia Diabetes Arthritis Social History Social History Household Members: None Housing: Condominium Alcohol intake: never Patient Tobacco Use Status: Never used Tobacco Second Hand Smoke Exposure: No Advance Directives: No Advance Directives Information Provided: No Do you have a plan to hurt others: No Plan service: No Current occupational status: unemployed Physical Exam ED Exam Exam: GENERAL: Chronically ill-appearing, conversant, no acute distress. SKIN: Normal skin color for ethnicity, warm, dry, no rashes noted. HEENT: Normocephalic, atraumatic, no stridor, posterior oropharynx nonerythematous, EOMI. NECK: Soft, supple, full ROM, midline structures nontender, no step-offs, no deformities, no lymphadenopathy. CHEST: Heart regular rate and rhythm, no murmurs, symmetric chest rise and fall, surgical changes post lumpectomy in the left breast, right port in place. PULMONARY: Clear to auscultation bilaterally, no labored breathing, no wheezes/rhales/ rhonchi. ABDOMINAL: Soft, nondistended, nontender, positive bowel sounds in all quadrants. : Deferred. MUSCULOSKELETAL: Normal tone, full range of motion, no deformities, no peripheral edema. NEURO: Alert and oriented to person, CN II through XII intact, no focal neurologic deficits. PSYCHIATRIC: Flat affect, fluid speech, appropriate demeanor. Vital Signs: Vital Signs - 24 hr 12/19/24 20:25 12/19/24 22:51 Temperature 98.0 F 97.9 F Pulse Rate 103 H 72 Respiratory Rate 18 18 Blood Pressure 164/76 H 148/76 H Pulse Oximetry 98 97 Oxygen Delivery Method Room Air Room Air BMI result Body Mass Index 24.8 Medical Decision Making Medical Decision Making [facility] Narrative: Patient presenting with chief complaint of high blood pressures. Differential diagnosis includes hypertensive urgency, hypertensive emergency, essential hypertension, uncontrolled hypertension, ACS, aortic dissection when accompanied with pain or neurologic dysfunction, renal insufficiency or injury, electrolyte abnormality, among many others. She has had some outpatient workup through her primary care doctor's office but as far as I can tell no one has checked an EKG or TSH. We will add those onto her workup. She is nontoxic in appearance with relatively normal blood pressures here in the emergency department. Differential Diagnosis Differential Diagnoses: The differential diagnosis associated with the presentation includes (As above) Admission/Observation Consideration of admission/observation: Escalation of care including admission/observation considered Lab Data [facility] Lab Attestation statement: I reviewed the patient's lab results. 12/19/24 20:34 12/19/24 20:34 Labs: Lab Results 12/19/24 12/19/24 Range/Units 20:34 22:22 WBC 7.5 (4.8-10.8) X10*3/uL RBC 4.95 (4.20-5.50) X10*6/uL Hgb 14.8 (12.0-16.0) g/dl Hct 42.7 (37.0-47.0) % MCV 86.3 (80.0-98.0) fL MCH 29.9 (27.0-33.0) pg MCHC 34.7 (31.0-35.0) g/dl RDW 12.7 (11.0-16.0) % Plt Count 232 (160-400) X10*3/uL MPV 8.8 L (9.4-12.3) fL Immature Gran % (Auto) 0.1 (0.0-0.4) % Neut % (Auto) 42.4 L (45-73) % Lymph % (Auto) 43.5 H (20-40) % [place] % (Auto) 9.4 (2-11) % Eos % (Auto) 4.1 H (0-4) % Baso % (Auto) 0.5 (0-2) % Lymph # (Auto) 3.3 (1.2-4.9) X10*3/uL [place] # (Auto) 0.7 (0.1-1.2) X10*3/uL Eos # (Auto) 0.3 (0.0-0.4) X10*3/uL Baso # (Auto) 0.0 (0.0-0.2) X10*3/uL Abs Immat Gran (auto) 0.01 (0.00-0.03) X10*3/uL Absolute Neuts (auto) 3.2 (2.0-8.3) x10*3/uL Absolute Nucleated RBC 0.000 (0.0-0.012) X10*3/uL Nucleated RBC % (auto) 0.0 (0.0-0.2) /100WBC Sodium 140 (135-145) mmol/L Potassium 3.6 (3.3-5.1) mmol/L Chloride 100 (96-108) mmol/L Carbon Dioxide 27 (22-29) mmol/L Anion Gap 17 (12-20) BUN 18 H (9-16) mg/dL Creatinine 1.01 (0.5-1.4) mg/dL Estim Creat Clear Calc 47.2 Estimated GFR 54 Fasting Glucose 131 H (60-99) mg/dL Calcium 9.2 (8.4-10.2) mg/dL Magnesium 1.9 (1.6-2.6) mg/dL Total Bilirubin 0.5 (0.0-1.0) mg/dL AST 28 (5-31) U/L ALT 17 (0-31) U/L Alkaline Phosphatase 78 (39-117) U/L Troponin I High Sens < 2.7 < 2.7 (<3.5-17.0) ng/L B-Natriuretic Peptide < 10 (<100) pg/mL Total Protein 7.6 (6.5-8.0) g/dL Albumin 4.6 (3.5-5.0) g/dL TSH 3.28 (0.32-4.0) uIU/mL Independent Interpretation I performed an independent interpretation of an: EKG and Plain X-Ray Interpretation: My independent interpretation of the ECG reveals normal sinus rhythm with rate of 74, normal axis, normal intervals, no ST elevations or depressions to suggest ischemic changes, no previous for comparison My independent interpretation of the chest x-ray reveals no consolidations, pulmonary edema, pleural effusion, pneumothorax, obvious bony abnormalities. Radiology Impression Discussion of test interpretation with radiology: I have reviewed the radiologist's reading. Prescription Management I considered prescription management with: Other (Lisinopril) Chronic Conditions Patient?s care impacted by: Other (Rheumatoid arthritis, breast cancer) Scores Heart Score History: -0- slightly suspicious ECG: -0- normal Age: -2- > or = 65 Risk factory: -0- no risk factors known Troponin: -0- < or = normal limit Score: 2 Risk: 1.7% Discharge Plan Discharge Clinical Impression: Hypertensive urgency, Stress and adjustment reaction Patient Disposition: Home, Self-Care Additional Instructions: Take your blood pressure medication daily, lisinopril 10 mg. Do not take this medication if your blood pressure is below 100/60. Follow-up with your primary care doctor as soon as possible. Return to the ER with any new or worsening symptoms including: Chest pain, difficulty breathing, fevers greater than 100?, worsening fatigue and weakness, numbness/tingling/weakness on 1 side of your body, word-finding issues, any new symptom that concerns you. Call 911 with any medical emergency. Prescriptions: New lisinopril 10 mg tablet 10 mg PO DAILY Qty: 30 0RF No Action cholecalciferol (vitamin D3) 25 mcg (1,000 unit) capsule 25 mcg PO DAILY lorazepam 0.5 mg tablet 0.5 mg PO TID PRN (Reason: anxiety) multivitamin [Daily Multi-Vitamin] Tablet 1 tab PO DAILY hydrochlorothiazide 12.5 mg capsule 12.5 mg PO DAILY Qty: 30 0RF Print Language: Armenian
[2024-12-19 21:47] LABS: Magnesium 1.9 mg/dL (1.6-2.6)
--- NOTE | 2024-12-19 21:56 | ECG_ITS ---
Test Reason : WEAKNESS Blood Pressure : */* mmHG Vent. Rate : 74 BPM Atrial Rate : 74 BPM P-R Int : 142 ms QRS Dur : 82 ms QT Int : 416 ms P-R-T Axes : 57 3 35 degrees QTcB Int : 461 ms Normal sinus rhythm Inferior infarct , age undetermined Abnormal ECG No previous ECGs available Referred By: Gali Robbins Electronically Signed By: Roger Porter
[2024-12-19 22:00] LABS: B Type Natriuretic Peptide < 10 pg/mL (<100)
[2024-12-19 22:08] LABS: Troponin-I High Sensitivity < 2.7 ng/L (<3.5-17.0)
[2024-12-19 22:35] LABS: Thyroid Stimulating Hormone 3.28 uIU/mL (0.32-4.0)
[2024-12-19 22:50] LABS: Troponin-I High Sensitivity < 2.7 ng/L (<3.5-17.0)
[2024-12-19 22:51] VITALS: BP 148/76; PULSE 72; RESP 18; TEMP 36.6; O2SAT 97
[2024-12-20] VITALS: BP 148/76; PULSE 72; RESP 18; TEMP 36.6; O2SAT 97
== END 2024-12-20 | disposition home or self-care (01) ==
PROVIDERS: Emergency Provider Emergency Medicine; PCP Internal Medicine
DX: I16.0 Hypertensive urgency (principal); F43.29 Adjustment disorder with other symptoms; Z72.89 Other problems related to lifestyle; Z63.4 Disappearance and death of family member; Z79.899 Other long term (current) drug therapy
CPT/HCPCS: 36415; 71046; 80053; 83735; 83880; 84443; 84484; 85025; 93005; 99283; 99284

== ENCOUNTER → 2024-12-19 21:56 | Outpatient (BNV) | payer MEDICARE, SELFPAY | PROVIDERS: Emergency Provider Emergency Medicine; PCP Internal Medicine; Visit Provider Radiology Vascular & Interventional Radiology | DX: R53.1 Weakness (principal) | CPT/HCPCS: 71046 ==

== ENCOUNTER → 2024-12-19 21:56 | Outpatient (BNV) | payer MEDICARE, SELFPAY | PROVIDERS: Emergency Provider Emergency Medicine; PCP Internal Medicine; Visit Provider Internal Medicine Cardiovascular Disease | DX: R94.31 Abnormal electrocardiogram [ECG] [EKG] (principal); R53.1 Weakness | CPT/HCPCS: 93010 ==

== ENCOUNTER 2025-01-05 09:14 | Outpatient (AMB) | payer MEDICARE, SELFPAY ==
--- OUTSIDE RECORDS SUMMARY | 2023-07-26 04:30 | XMS_ITS ---
Author Organization [facility] Address [address] [place] [address] Care Team Providers Care Molder Trimmer Name Role Phone Glenna HEATON, Jeffrey Primary Care Provider Oriana Lazo [phone] Encounters Encounter Location Date Provider Diagnosis [facility] [address] [place] [address] 07/26/2023 Oriana Casas Plan Of Treatment No Information Progress Notes * Aurora SANDOVALDOB:1955 (69 yo F)Acc No.[id number]:07/26/2023 Progress Notes Patient: Aurora VELASQUEZ Provider: Alejandro Casas DPM :1955 A ge:67 Y S ex:Female Date:07/26/2023 Address:[address] [place] [address] [place] Pcp:Jeffrey Manzanares MD Subjective: * Chief Complaints: * * Medical History: Objective: * Vitals: Assessment: Plan: * Treatment: * Images: * The named appointment provid er may or may not be the originator of this progress note, and it is not deemed complete until electronically signed by the appointment provider. Sign off status: Pending * Provider: Alejandro Casas DPM Date: 07/26/2023 Generated for Manuelai cheryl/Sebastian/eTransmitting on: 01/05/2025 10:03 AM EDT
--- NOTE | 2025-01-05 09:17 | A.OFFVIS_ITS ---
Vital Signs 01/05/25 09:37 Height 5 ft 3 in Weight 141 lb BMI 25.0 BP 149/72 H Blood Pressure Location Lt brachial Position Sitting Pulse 86 Intake Visit Reasons: tenderness and rash on breast Intake Note: Patient is seen in office for a rash and tender of the left breast. 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 Blue presenting for evaluation of a left breast skin redness noted recently. This began after riding in her friend's car with some exposure of son to her left breast. She also was working on her mother's house (her mother several months ago) using a hand hedge clipper which she feels caused increased soreness in the left chest. The redness was limited to areas with the radiation therapy was administered. The redness has subsequently subsided but she continues to have some soreness in the left chest. She has a previous history of a left breast lump in his status post ultrasound-guided core biopsy on 07/30/2022, found to have an infiltrating ductal carcinoma, grade 3, with DCIS, grade 2, triple negative. She was referred to Medical Oncology (Dr. Bains) and subsequently underwent neoadjuvant chemotherapy including carboplatin him, Taxol and pembrolizumab for 4 cycles followed by pembrolizumab times 10 cycles. She then underwent a lumpectomy with localizer and sentinel node biopsy on 04/15/2023. Pathology confirmed an infiltrating ductal carcinoma, grade 3 measuring 4 mm with DCIS, grade 2 both with negative margins. 0 of 2 sentinel nodes revealed metastatic disease (stage yp T1 a, N0 (sn) (i-)). She completed radiation therapy but then developed a cough post therapy which resolved after a course of steroids. She underwent a diagnostic mammogram and ultrasound on 11/23/2024. This revealed post lumpectomy changes which were felt to be benign with a probable postoperative seroma/complicated cyst at the 12 o'clock position 427 cm from the nipple correlating to the patient's palpable lump and incision. A six-month follow-up study has been requested in his scheduled for 05/28/2025. [facility] Medical History Essential hypertension Radiation pneumonitis Pneumonia Chronic cough IBS (irritable bowel syndrome) Migraines Osteopenia Compression fx, thoracic spine Osteoarthritis of fingers of both hands Seropositive rheumatoid arthritis SANDIE positive Surgical History Hx of colonoscopy Hx of tonsillectomy Family History Mother HTN (hypertension) Hyperlipidemia Diabetes Arthritis Social History Household Members: None [facility] Alcohol intake: never Patient Tobacco Use Status: Never used Tobacco Second Hand Smoke Exposure: No service: No Current occupational status: unemployed Review of Systems Const All systems reviewed & are unremarkable except as noted in HPI and below Physical Exam Const General: no acute distress Nutritional Appearance: well nourished Orientation/consciousness: patient oriented x3 Chest Other: Left breast: Well-healed incision in the upper central breast with underlying palpable seroma noted. There is a small ecchymotic area in the lower outer quadrant which is unchanged from prior examination. No erythema or new palpable masses noted. No enlarged lymph nodes. Right breast: No skin change, no nipple retraction, no nipple discharge, no palpable mass, no enlarged lymph nodes Resp Effort & Inspection: normal respiratory effort Skin Other: Warm, dry, no rash Neuro Other: Mobility Assessment: 1. 3 meter assessment time (seconds): 5 2. Gait observations: Normal balance and gait General: patient oriented x3 Assessment & Plan Assessment & Plan (1) Triple negative breast cancer: Code(s): C50.919 - Malignant neoplasm of unspecified site of unspecified female breast Category: Surgical (2) Status post breast lumpectomy: Code(s): Z98.890 - Other specified postprocedural states Category: Surgical Plan 69-year-old female patient with a prior history of triple negative infiltrating ductal carcinoma with DCIS returning for evaluation of a recent skin change. On examination the redness has subsided but a palpable seroma remains. No new palpable mass or skin changes appreciated at this time. By history this appears to be a delayed reaction to radiation therapy which has subsequently resolved. No biopsy or surgical intervention is required at this time. She is scheduled for a follow-up mammogram and ultrasound in 05/28/2025 to re-evaluate the left breast seroma. I recommended she follow-up after this for routine breast examination. She is welcome to call sooner for any new concerns. Coding Level of Care Code Est Pt Level 3 (83858) Complex EM visit Add On G2211 Diagnoses Triple negative breast cancer C50.919 Status post breast lumpectomy Z98.890
[2025-01-05 09:37] VITALS: BP 149/72; PULSE 86; BMI 25.0
--- OUTSIDE RECORDS SUMMARY | 2025-01-05 10:04 | XMS_ITS | Patient Health Record ---
Author Organization [facility] Address [address] [place] [id number] Care Team Providers Care Supervisor Electronic Coils Name Role Phone Jeffrey Manzanares MD Primary Care Provider Arcenio Romero [phone] Allergies Allergen (clinical drug ingredient) Drug/Non Drug [...] Status Risk Notes Problem Colon cancer screening (258421239) Colon cancer screening (Z12.11) Active confirmed Problem 521189763 Encounter for screening for malignant neoplasm of colon (Z12.11) Active confirmed Problem History of adenomatous polyp of colon (174349868) History of adenomatous polyp of colon (Z86.010) Active confirmed Problem Screening for malignant neoplasm of rectum (829986924) Encounter for screening for malignant neoplasm of rectum (Z12.12) Active confirmed Problem Preprocedural examination (138489395436914) Preprocedural examination (Z01.818) Active confirmed Problem History of colon polyps (Z86.010) Active confirmed Problem 52396611 Constipation, unspecified constipation type (K59.00) Active confirmed Problem 67039304 Diarrhea, unspecified type (R19.7) Active confirmed Problem 12650117 Irritable bowel syndrome, unspecified type (K58.9) Active [...] Insured Coverage Start Date Coverage End Date [facility] [address] [place], [place] [id number] IVANNA STEVENSON Self - patient is the insured Medical (General) History Medical History History ICD Code Migraines Denies PA,DM,CVA,Lung disease,renal dise ase IBS-neg. labs for celiac disease in [address] of abdomen in 11/2015 Screening colonoscopy 03/2016 with a sma ll tubular adenoma Surgical History Surgery Date(Month/Year) Tonsillectomy at age 34
--- OUTSIDE RECORDS SUMMARY | 2025-01-05 10:04 | XMS_ITS | Patient Health Record ---
Author Organization [facility] Address [address] [place] [address] Care Team Providers Care Briar Cutter Name Role Phone Glenna HEATON, Jeffrey Primary Care Provider Unavailabl e Augusto, Oriana Unavailable [phone] Reason For Referral No Information Plan Of Treatment No Information Insurance Providers Payer Name Payer Address Payer Phone Subscriber Number Group Number Insured Name Patient Relationship to Insured Coverage Start Date Coverage End Date [employer] [address] [place] [address] Aurora Stevenson Self - patient is the insured
== END 2025-01-05 09:49 | disposition home or self-care (01) ==
LOC: HO.HGS 09:14
PROVIDERS: PCP Internal Medicine; Visit Provider Surgery
DX: C50.919 Malignant neoplasm of unspecified site of unspecified female breast (principal); Z98.890 Other specified postprocedural states
CPT/HCPCS: 99213; G2211

== ENCOUNTER → 2025-01-05 09:14 | Outpatient (BNVA) | payer MEDICARE, SELFPAY | PROVIDERS: PCP Internal Medicine; Visit Provider Surgery | DX: R21 Rash and other nonspecific skin eruption (principal); C50.911 Malignant neoplasm of unspecified site of right female breast; Z17.1 Estrogen receptor negative status [ER-]; Z17.22 Progesterone receptor negative status; Z17.32 Human epidermal growth factor receptor 2 negative status; Z98.890 Other specified postprocedural states; Z92.3 Personal history of irradiation | CPT/HCPCS: 99212 ==